=== PATIENT | female | born 1990 | race Caucasian/White ===

== ENCOUNTER 2016-11-26 21:40 | Emergency (ER) | payer MEDICAID ==
[~2016-11-26] VITALS: Ht 154.9 cm; Wt 63.5 kg
[~2016-11-26 21:40] MED LIST: AMOX-358 PO; AMOX500C2 PO; BENZ56AE TP; CEPH500C PO; CIPR500T78 PO; CODE-54 PO; DCS100C PO; FAMO20TA5 PO; FLUT9.9S NS; HYDR-757 PO; IBP600T1 PO; METH4TAB PO; NAPR500T PO; NITR25OR3 PO; ONDA-42 PO; ONDA8TAB13 PO; PEDI1TAB36 PO; PREN1TAB39 PO; PRENATAL VITAMINS; TRAM50TA2 PO
--- NOTE | 2016-11-26 22:32 | ED Back Pain ---
General Chief Complaint: Back Problems Stated Complaint: UPPER BACK PAIN Nursing Triage Note: Pt reports picking up car seat to go to store mid day and began severe pain in upper back. Pt could not go to work r/t pain. Nursing Sepsis Screen: No Definite Risk Source of Information: Patient Exam Limitations: No Limitations History of Present Illness Time Seen by Provider: 22:32 Initial Comments 26-year-old female patient presents to the emergency department for complaints of upper back pain after picking up her infants car seat earlier today. States pain was so severe she could not go to work. Denies radiating pain, numbness, weakness, bowel incontinence, or bladder incontinence. Location: Paraspinous Muscles Timing/Duration: 4-6 Hours Pain/Injury Location: Back Method of Injury: Other (lifting an car seat) Modifying Factors: Worse With Movement, Worse With Other (worse with deep breaths and palpation) Associated Symptoms: muscle spasms, No fever, No weakness, No numbness in legs/ feet, No tingling in legs/feet, No sensory/motor loss, No lower back pain, No loss of bladder control, No loss of bowel control Allergies and Home Medications Allergies Coded Allergies: nitrofurantoin (Unverified Allergy, Unknown, 09/06/14) throat swelling Home Medications Cyclobenzaprine HCl 10 Mg Tablet, 10 MG PO Q8H PRN for SPASMS, #10 Ref 0 Prescribed by: MARIE VAZQUEZ on 11/26/162241 Ibuprofen 800 Mg Tablet, 800 MG PO Q8H PRN for PAIN, #30 Ref 0 Prescribed by: MARIE VAZQUEZ on 11/26/162241 Prednisone 20 Mg Tab, 40 MG PO DAILY, #10 Ref 0 Prescribed by: MARIE VAZQUEZ on 11/26/162241 Constitutional: no symptoms reported Respiratory: No cough, No dyspnea on exertion, No short of breath Cardiovascular: No chest pain, No palpitations, No syncope Gastrointestinal: No abdominal pain, No diarrhea, No nausea, No vomiting Genitourinary: no symptoms reported Musculoskeletal: see HPI, back pain, No joint pain, No neck pain Skin: no symptoms reported Psychiatric/Neurological: Denies Numbness, Denies Paresthesia, Denies Tingling , Denies Weakness All Other Systems Reviewed Negative Unless Noted: Yes (Negative excepted noted.) Past Idnnavl-Ewjdom-Uuxfbz Hx Patient Social History Alcohol Use: Denies Use Recreational Drug Use: No Smoking Status: Never a Smoker 2nd Hand Smoke Exposure: No Recent Foreign Travel: No Contact w/Someone Who Travel: No Recent Infectious Disease Expo: No Recent Hopitalizations: No Immunizations Up To Date Tetanus Booster (TDap): Less than 5yrs PED Vaccines UTD: Yes Seasonal Allergies Seasonal Allergies: No Surgeries HX Surgeries: No Respiratory Hx Respiratory Disorders: No Cardiovascular Hx Cardiac Disorders: No Neurological Hx Neurological Disorders: No Reproductive System : No Hx Reproductive Disorders: No Sexually Transmitted Disease: No HIV/AIDS: No Female Reproductive Disorders: Denies Genitourinary Hx Genitourinary Disorders: No Gastrointestinal Hx Gastrointestinal Disorders: Yes (PREVIOUS GALL BLADDER ISSUES BUT UNSURE WHAT) Musculoskeletal Hx Musculoskeletal Disorders: No Endocrine Hx Endocrine Disorders: No HEENT HX ENT Disorders: No Loss of Vision: Denies Hearing Impairment: Denies Cancer Hx Cancer: No Psychosocial Hx Psychiatric Problems: No Integumentary HX Skin/Integumentary Disorder: No Blood Transfusions Hx Blood Disorders: No Adverse Reaction to a Blood Tr: No Reviewed Nursing Assessment Reviewed/Agree w Nursing PMH: Yes Family Medical History Significant Family History: No Pertinent Family Hx Family Medial History: Patient reports no known family medical history. Physical Exam Vital Signs Capillary Refill : Less Than 3 Seconds General Appearance: No Apparent Distress, WD/WN HEENT: PERRL/EOMI, Pharynx Normal Neck: Full Range of Motion, Normal Inspection, Non Tender, Supple Cardiovascular: Regular Rate, Rhythm, No Edema, No Murmur, Normal Peripheral Pulses Respiratory: Lungs Clear, Normal Breath Sounds, No Accessory Muscle Use, No Respiratory Distress, Other (left anterior/posterior/lateral 6th-8th ribs TTP w/ o deformity, ecchymosis, or swelling.) Peripheral Pulses: 2+ Dorsalis Pedis (R), 2+ Left Dors-Pedis (L), 2+ Radial Pulses (R), 2+ Radial Pulses (L) Gastrointestinal: Normal Bowel Sounds, Non Tender, Soft, No Distended Back: Normal Inspection, No Vertebral Tenderness, No Decreased Range of Motion , Other (left posterior 6th-8th ribs TTP.) Extremity: Normal Capillary Refill, Normal Inspection, Normal Range of Motion, Non Tender Neurologic/Psychiatric: Alert, Oriented x3, No Motor/Sensory Deficits, Normal Mood/Affect Skin: Normal Color, Warm/Dry Progress/Results/Core Measures Results/Orders My Orders Orders - MARIE VAZQUEZ Rx-Cyclobenzaprine Tablet (Rx-Flexeril T (11/26/16 22:39) Tramadol Tablet (Ultram Tablet) (11/26/16 22:45) Vital Signs/I&O Blood Pressure Mean: 86 Departure Communication Progress Notes Patient seen and evaluated. Plan for discharge to home with Rx's for prednisone , flexeril and motrin. Impression Impression: Primary Impression: Costochondritis, acute Disposition: 01 HOME, SELF-CARE Condition: Improved Departure-Patient Inst. Decision time for Depature: 22:40 Referrals: [facility] (PCP/Family) Primary Care Physician Patient Instructions: Costochondritis (DC) Add. Discharge Instructions: All discharge instructions reviewed with patient and/or family. Voiced understanding. Medications as instructed. Tylenol extra strength over-the- counter as directed for pain. No lifting, pushing, pulling 3-5 days, increase activity as tolerated. Ice packs or heating pads as needed for pain. Follow- up with her family practitioner if no improvement in symptoms in 7-10 days. Return to the emergency department for worsened symptoms or any other concerns. Scripts Ibuprofen (Ibuprofen) 800 Mg Tablet 800 MG PO Q8H Y for PAIN, #30 TAB 0 Refills Prov: MARIE VAZQUEZ 11/26/16 Cyclobenzaprine HCl (Cyclobenzaprine HCl) 10 Mg Tablet 10 MG PO Q8H Y for SPASMS, #10 TAB 0 Refills Prov: MARIE VAZQUEZ 11/26/16 Prednisone (Prednisone) 20 Mg Tab 40 MG PO DAILY, #10 TAB 0 Refills Prov: MARIE VAZQUEZ 11/26/16 Work/School Note: Work Release Form Date Seen in the Emergency Department: Nov 26, 2016 Return to Work: Nov 27, 2016 Other Restrictions Listed Below: no heavy lifting, pushing or pulling x3- 5 days MARIE VAZQUEZ Nov 26, 2016 22:32
[2016-11-26] MEDS ORDERED: RX-CYCLOBENZAPRINE 10 MG (FLEXERIL) TAB PPK#3 PO STA (22:39)
[2016-11-26] MEDS ORDERED: PRD20T PO (22:42)
[2016-11-26] MEDS ORDERED: CYCL10TA9 PO (22:42)
[2016-11-26] MEDS ORDERED: IBUP-1780 PO (22:42)
[2016-11-26 22:59] VITALS: BP 119/69
--- OUTSIDE RECORDS SUMMARY | 2016-12-15 05:17 | XMS REPORT | Continuity of Care Document ---
Author Author [facility] Organization [facility] Address Unknown Phone Unavailable Allergies Active Description Code Type Severity Reaction Onset Reported/Identified Relationship to Patient Clinical Status Yes No Known Drug Allergies [id number] Drug Allergy Unknown N/ A 01/17/2011 Yes nitrofurantoin [id number] Drug Allergy Unknown N/A 09/06/2014 Medications Problems Date Dx Coded Attending Type Code Diagnosis Diagnosed By 01/20/2011 Ot 285.9 ANEMIA NOS 01/20/2011 Ot 644.21 EARLY ONSET DELIVERY-DEL 01/20/2011 Ot 648.21 ANEMIA-DELIVERED 01/20/2011 Ot 663.31 CORD ENTANGLE NEC-DELIV 01/20/2011 Ot V07.2 PROPHYLACT IMMUNOTHERAPY 01/20/2011 Ot V27.0 DELIVER-SINGLE LIVEBORN 04/09/2012 Ot 380.10 INFEC OTITIS EXTERNA NOS 04/09/2012 Ot 388.70 OTALGIA NOS 04/09/2012 Ot 528.2 ORAL APHTHAE 05/01/2014 MARY ALICE JEFFERSON DO Ot 599.0 URIN TRACT INFECTION NOS 05/01/2014 MARY ALICE JEFFERSON DO Ot 646.63 INFECTION-ANTEPARTUM 05/01/2014 MARY ALICE JEFFERSON DO Ot 789.00 ABDOMINAL PAIN, UNSPECIFIED SITE 07/15/2014 JOSUÉ CAMPOS DO Ot 644.03 THRT DOTTIE LABOR-ANTEPART 09/07/2014 JOSUÉ CAMPOS DO Ot 599.0 URIN TRACT INFECTION NOS 09/07/2014 JOSUÉ CAMPOS DO Ot 644.03 THRT DOTTIE LABOR-ANTEPART 09/07/2014 JOSUÉ CAMPOS DO Ot 646.63 INFECTION-ANTEPARTUM 09/07/2014 JOSUÉ CAMPOS DO Ot 644.03 THRT DOTTIE LABOR-ANTEPART 09/24/2014 AIDAN MCLAIN MD Ot 708.9 URTICARIA NOS 09/24/2014 AIDAN MCLAIN MD Ot 782.1 NONSPECIF SKIN ERUPT NEC 09/30/2014 JOSUÉ CAMPOS DO Ot 644.03 09/30/2014 JOSUÉ CAMPOS DO Ot 644.03 THRT DOTTIE LABOR-ANTEPART 10/12/2014 JOSUÉ CAMPOS DO Ot 644.13 THREAT LABOR NEC-ANTEPAR 10/18/2014 JOSUÉ CAMPOS DO Ot 664.01 DEL W 1 DEG LACERAT-DEL 10/18/2014 JOSUÉ CAMPOS DO Ot V27.0 DELIVER-SINGLE LIVEBORN 01/20/2015 GRICEL DOMINGUEZ APRN Ot 525.9 DENTAL DISORDER NOS 03/28/2015 MARIE MCCALL Ot 276.50 VOLUME DEPLETION, UNSPECIFIED 03/28/2015 MARIE MCCALL Ot 599.0 URIN TRACT INFECTION NOS 03/28/2015 MARIE MCCALL Ot 620.2 OVARIAN CYST NEC/NOS 03/28/2015 MARIE MCCALL Ot 789.09 ABDOMINAL PAIN, OTHER SPECIFIED SITE 08/31/2015 BLAINE HUNTER DO Ot R11.2 04/03/2016 BLAINE HUNTER DO Ot R11.2 NAUSEA WITH VOMITING, UNSPECIFIED 04/03/2016 GRICEL DOMINGUEZ APRN Ot J01.00 ACUTE MAXILLARY SINUSITIS, UNSPECIFIED 04/03/2016 GRICEL DOMINGUEZ APRN Ot R51 HEADACHE 04/04/2016 GRICEL DOMINGUEZ APRN Ot J01.00 ACUTE MAXILLARY SINUSITIS, UNSPECIFIED 04/04/2016 GRICEL DOMINGUEZ APRN Ot R51 HEADACHE 04/04/2016 GRICEL DOMINGUEZ APRN Ot J01.00 ACUTE MAXILLARY SINUSITIS, UNSPECIFIED 04/04/2016 GRICEL DOMINGUEZ APRN Ot R51 HEADACHE 11/27/2016 BLAINE HUNTER DO Ot R11.2 NAUSEA WITH VOMITING, UNSPECIFIED 11/27/2016 MARIE MCCALL Ot M54.9 DORSALGIA, UNSPECIFIED 11/27/2016 MARIE MCCALL Ot M94.0 CHONDROCOSTAL JUNCTION SYNDROME [TIETZE ] Procedures Code Description Performed By Performed On 73.6 01/18/2011 75.69 REPAIR OB LACERATION NEC 10/17/2014 Results Encounters ACCT No. Visit Date/Time Discharge Status Pt. Type Provider Facility Loc./Unit Complaint [id number] 11/26/2016 21:41:00 2016 22:59:00 DIS Outpatient MARIE MCCALL [facility] ER UPPER BACK PAIN [id number] 04/03/2016 13:58:00 2015 14:10:00 DIS Emergency GRICEL DOMINGUEZ APRN [facility] ER EARACHE HEADACHE CONGESTION [id number] 03/28/2015 12:24:00 2014 16:34:00 DIS Emergency MARIE MCCALL [facility] ER ABD/LOW BACK PAIN SPOTTING FEVER [id number] 01/20/2015 11:17:00 2014 11:41:00 DIS Emergency GRICEL DOMINGUEZ APRN [facility] ER TOOTHACHE [id number] 10/12/2014 13:09:00 2014 15:40:00 DIS Outpatient JOSUÉ CAMPOS DO [facility] WSo CONTRACTIONS [id number] 09/29/2014 11:30:00 2014 10:59:00 DIS Inpatient JOSUÉ CAMPOS DO [facility] LDRP LABOR [id number] 09/24/2014 23:00:00 2014 23:35:00 DIS Emergency AIDAN MCLAIN MD [facility] ER RASH [id number] 09/07/2014 15:04:00 2014 15:22:00 DIS Outpatient JOSUÉ CAMPOS DO [facility] WSo THRT OF PRE TERM LABOR [id number] 09/06/2014 15:45:00 2014 09:30:00 DIS Inpatient JOSUÉ CAMPOS DO [facility] LDRP PRE-TERM CONTRACTIONS [id number] 07/15/2014 18:29:00 2013 19:29:00 DIS Outpatient JOSUÉ CAMPOS DO [facility] WSo ABD PAIN, DEC MOVEMENT [id number] 05/01/2014 12:53:00 2013 14:50:00 DIS Emergency MARY ALICE JEFFERSON DO [facility] ER ABD PAIN @ 13 WEEKS [id number] 08/16/2015 08:45:00 ACT Outpatient BLAINE HUNTER DO [facility] RAD N/V [id number] 10/17/2014 00:00:00 ACT Inpatient JOSUÉ CAMPOS DO [facility] LDRP CONTRACTIONS [id number] 04/09/2012 21:24:00 Document Registration [id number] 01/17/2011 16:07:00 Document Registration
== END 2016-11-26 22:59 | disposition home or self-care (01) ==
LOC: EDUNIT# 21:40 → ER 21:41
DX: M94.0 Chondrocostal junction syndrome [Tietze] (principal)
CPT/HCPCS: 99283

== ENCOUNTER 2017-01-21 15:52 | Emergency (ER) | payer MEDICAID ==
[~2017-01-21] VITALS: Ht 154.9 cm; Wt 63.0 kg
[~2017-01-21 15:52] MED LIST changes: +CYCL10TA9 PO; +IBUP-1780 PO; +PRD20T PO
--- NOTE | 2017-01-21 16:17 | ED Upper Extremity ---
General Stated Complaint: LIGHT HEADED/DIZZY/SHAKEY Source: patient Exam Limitations: no limitations History of Present Illness Time seen by provider: 16:16 Initial Comments To ER with reports of lightheadedness, dizziness, shakiness and bilateral arm numbness since the of this month. No shortness of breath or palpitations. No syncope or loss of consciousness. She's never had this before. She is 3 weeks late on her menstrual cycle. Onset: other Severity: moderate Pain/Injury Location: bilateral arm Method of Injury: unknown Modifying Factors: Worse With Movement Allergies and Home Medications Allergies Coded Allergies: nitrofurantoin (Unverified Allergy, Unknown, 09/06/14) throat swelling Constitutional: see HPI EENTM: see HPI Respiratory: no symptoms reported Cardiovascular: no symptoms reported Genitourinary: no symptoms reported Musculoskeletal: see HPI Skin: no symptoms reported Psychiatric/Neurological: No Symptoms Reported Past Irynfwv-Sfsetu-Eoatjn Hx Patient Social History 2nd Hand Smoke Exposure: No Recent Foreign Travel: No Contact w/Someone Who Travel: No Recent Hopitalizations: No Immunizations Up To Date Tetanus Booster (TDap): Less than 5yrs PED Vaccines UTD: Yes Seasonal Allergies Seasonal Allergies: No Surgeries HX Surgeries: No Respiratory Hx Respiratory Disorders: No Cardiovascular Hx Cardiac Disorders: No Neurological Hx Neurological Disorders: No Reproductive System Hx Reproductive Disorders: No Sexually Transmitted Disease: No HIV/AIDS: No Female Reproductive Disorders: Denies Genitourinary Hx Genitourinary Disorders: No Gastrointestinal Hx Gastrointestinal Disorders: Yes (PREVIOUS GALL BLADDER ISSUES BUT UNSURE WHAT) Musculoskeletal Hx Musculoskeletal Disorders: No Endocrine Hx Endocrine Disorders: No HEENT HX ENT Disorders: No Loss of Vision: Denies Hearing Impairment: Denies Cancer Hx Cancer: No Psychosocial Hx Psychiatric Problems: No Integumentary HX Skin/Integumentary Disorder: No Blood Transfusions Hx Blood Disorders: No Adverse Reaction to a Blood Tr: No Family Medical History Significant Family History: No Pertinent Family Hx Family Medial History: Patient reports no known family medical history. Physical Exam Vital Signs Vital Sign - Last 12Hours 01/21/17 16:10 Temp 97.1 Pulse 66 Resp 18 B/P (MAP) 120/59 Pulse Ox 100 Capillary Refill : General Appearance: WD/WN, no apparent distress HEENT: PERRL/EOMI, normal ENT inspection Neck: non-tender, full range of motion Respiratory: no respiratory distress, no accessory muscle use Gastrointestinal: normal bowel sounds, non tender, soft Shoulder: normal inspection, non-tender Elbow/Forearm: normal inspection, non-tender, Right Wrist: Yes normal inspection, Yes non-tender Hand: normal inspection, non-tender, Bilateral Neurologic/Psychiatric: alert, normal mood/affect, oriented x 3 Skin: normal color, warm/dry Progress/Results/Core Measures Results/Orders Lab Results Laboratory Tests Test 01/21/17 16:14 01/21/17 16:15 01/21/17 16:36 Range/Units Urine Color YELLOW Urine Clarity CLEAR Urine pH 7 5-9 Urine Specific [place] 1.010 L 1.016-1.022 Urine Protein NEGATIVE NEGATIVE Urine Glucose (UA) NEGATIVE NEGATIVE Urine Ketones NEGATIVE NEGATIVE Urine Nitrite NEGATIVE NEGATIVE Urine Bilirubin NEGATIVE NEGATIVE Urine Urobilinogen NORMAL NORMAL MG/DL Urine Leukocyte Esterase 1+ H NEGATIVE Urine RBC (Auto) NEGATIVE NEGATIVE Urine RBC NONE /HPF Urine WBC 0-2 /HPF Urine Squamous Epithelial Cells 0-2 /HPF Urine Crystals NONE /LPF Urine Bacteria TRACE /HPF Urine Casts NONE /LPF Urine Mucus NEGATIVE /LPF Urine Culture Indicated NO Urine Opiates Screen NEGATIVE NEGATIVE Urine Oxycodone Screen NEGATIVE NEGATIVE Urine Methadone Screen NEGATIVE NEGATIVE Urine Propoxyphene Screen NEGATIVE NEGATIVE Urine Barbiturates Screen NEGATIVE NEGATIVE Ur Tricyclic Antidepressants Screen NEGATIVE NEGATIVE Urine Phencyclidine Screen NEGATIVE NEGATIVE Urine Amphetamines Screen NEGATIVE NEGATIVE Urine Methamphetamines Screen NEGATIVE NEGATIVE Urine Benzodiazepines Screen NEGATIVE NEGATIVE Urine Cocaine Screen NEGATIVE NEGATIVE Urine Cannabinoids Screen NEGATIVE NEGATIVE White Blood Count 8.9 4.3-11.0 10^3/uL Red Blood Count 4.60 4.35-5.85 10^6/uL Hemoglobin 13.0 11.5-16.0 G/DL Hematocrit 40 35-52 % Mean Corpuscular Volume 87 80-99 FL Mean Corpuscular Hemoglobin 28 25-34 PG Mean Corpuscular Hemoglobin Concent 33 32-36 G/DL Red Cell Distribution Width 13.9 10.0-14.5 % Platelet Count 146 130-400 10^3/uL Mean Platelet Volume 13.0 H 7.4-10.4 FL Neutrophils (%) (Auto) 67 42-75 % Lymphocytes (%) (Auto) 24 12-44 % Monocytes (%) (Auto) 8 0-12 % Eosinophils (%) (Auto) 1 0-10 % Basophils (%) (Auto) 0 0-10 % Neutrophils # (Auto) 6.0 1.8-7.8 X 10^3 Lymphocytes # (Auto) 2.1 1.0-4.0 X 10^3 Monocytes # (Auto) 0.7 0.0-1.0 X 10^3 Eosinophils # (Auto) 0.1 0.0-0.3 10^3/uL Basophils # (Auto) 0.0 0.0-0.1 10^3/uL Sodium Level 139 135-145 MMOL/L Potassium Level 4.5 3.6-5.0 MMOL/L Chloride Level 106 98-107 MMOL/L Carbon Dioxide Level 26 21-32 MMOL/L Anion Gap 7 5-14 MMOL/L Blood Urea Nitrogen 10 7-18 MG/DL Creatinine 0.75 0.60-1.30 MG/DL Estimat Glomerular Filtration Rate > 60 BUN/Creatinine Ratio 13 Glucose Level 90 70-105 MG/DL Calcium Level 9.3 8.5-10.1 MG/DL Total Bilirubin 0.5 0.1-1.0 MG/DL Aspartate Amino Transf (AST/SGOT) 16 5-34 U/L Alanine Aminotransferase (ALT/SGPT) 11 0-55 U/L Alkaline Phosphatase 51 40-136 U/L Total Protein 7.2 6.4-8.2 G/DL Albumin 4.1 3.2-4.5 G/DL Thyroid Stimulating Hormone (TSH) 0.92 0.35-4.94 UIU/ML My Orders Orders - GRICEL DOMINGUEZ APRN Cbc With Automated Diff (01/21/17 16:15) Comprehensive Metabolic Panel (01/21/17 16:15) Thyroid Stimulating Hormone (01/21/17 16:15) Ua Culture If Indicated (01/21/17 16:15) Urine Bedside (01/21/17 16:15) Drug Screen Stat (Urine) (01/21/17 16:15) Vital Signs/I&O Vital Sign - Last 12Hours 01/21/17 16:10 Temp 97.1 Pulse 66 Resp 18 B/P (MAP) 120/59 Pulse Ox 100 Departure Impression Impression: Primary Impression: Paresthesia and pain of both upper extremities Additional Impression: Light-headed feeling Disposition: 01 HOME, SELF-CARE Condition: Stable Departure-Patient Inst. Decision time for Depature: 17:26 [place] [facility] [place] Primary Care Physician Patient Instructions: NO INSTRUCTIONS GIVEN Add. Discharge Instructions: 1. Return to ER for any concerns 2. Follow-up with your doctor next week 3. GRICEL DOMINGUEZ APRN January 21, 2017 16:17
[2017-01-21 16:25] LABS: BILIRUBIN,URINE NEGATIVE (NEGATIVE); KETONES,URINE NEGATIVE (NEGATIVE); LEUKOCYTE ESTERASE ,URINE 1+ (NEGATIVE); NITRITE,URINE NEGATIVE (NEGATIVE); PH,URINE 7 (5-9); PROTEIN,URINE NEGATIVE (NEGATIVE); UROBILINOGEN,URINE NORMAL (NORMAL)
[2017-01-21 16:44] LABS: BASOPHILS % (AUTO) 0 % (0-10); EOSINOPHILS # (AUTO) 0.1 10^3/uL (0.0-0.3); EOSINOPHILS % (AUTO) 1 % (0-10); LYMPHOCYTES # (AUTO) 2.1 X 10^3 (1.0-4.0); LYMPHOCYTES % (AUTO) 24 % (12-44); MEAN CORPUSCULAR HEMOGLOBIN 28 PG (25-34); MEAN CORPUSCULAR HGB CONC 33 G/DL (32-36); MEAN CORPUSCULAR VOLUME 87 FL (80-99); MONOCYTES # (AUTO) 0.7 X 10^3 (0.0-1.0); MONOCYTES % (AUTO) 8 % (0-12); NEUTROPHILS % (AUTO) 67 % (42-75); PLATELET COUNT 146 10^3/uL (130-400); RED CELL DISTRIBUTION WIDTH 13.9 % (10.0-14.5); WHITE BLOOD COUNT 8.9 10^3/uL (4.3-11.0)
[2017-01-21 16:46] LABS: SQUAMOUS EPITHELIAL CELL,UR 0-2 /HPF; WBC,URINE 0-2 /HPF
[2017-01-21 17:03] LABS: ALANINE AMINOTRANSFERASE 11 U/L (0-55); ALBUMIN 4.1 G/DL (3.2-4.5); ANION GAP 7 MMOL/L (5-14); ASPARTATE AMINO TRANSFERASE 16 U/L (5-34); BILIRUBIN,TOTAL 0.5 MG/DL (0.1-1.0); BLOOD UREA NITROGEN 10 MG/DL (7-18); BUN/CREATININE RATIO 13; CALCIUM 9.3 MG/DL (8.5-10.1); CARBON DIOXIDE 26 MMOL/L (21-32); CHLORIDE 106 MMOL/L (98-107); CREATININE SERUM 0.75 MG/DL (0.60-1.30); GFR ESTIMATED > 60; GLUCOSE 90 MG/DL (70-105); POTASSIUM 4.5 MMOL/L (3.6-5.0); SODIUM 139 MMOL/L (135-145); TOTAL PROTEIN 7.2 G/DL (6.4-8.2)
[2017-01-21 17:22] LABS: THYROID STIMULATING HORMONE 0.92 UIU/ML (0.35-4.94)
[2017-01-21 17:52] VITALS: BP 120/59
== END 2017-01-21 17:52 | disposition home or self-care (01) ==
LOC: EDUNIT# 15:52 → ER 15:54
DX: R42 Dizziness and giddiness (principal); R20.2 Paresthesia of skin
CPT/HCPCS: 36415; 80053; 80306; 81000; 84443; 84703; 85025; 99283

== ENCOUNTER 2017-03-30 20:01 | Emergency (ER) | payer OTHER ==
[~2017-03-30] VITALS: Ht 154.9 cm; Wt 63.1 kg
[2017-03-30 20:41] LABS: BILIRUBIN,URINE NEGATIVE (NEGATIVE); KETONES,URINE NEGATIVE (NEGATIVE); LEUKOCYTE ESTERASE ,URINE 1+ (NEGATIVE); NITRITE,URINE NEGATIVE (NEGATIVE); PH,URINE 6 (5-9); PROTEIN,URINE NEGATIVE (NEGATIVE); UROBILINOGEN,URINE NORMAL (NORMAL)
[2017-03-30 21:03] LABS: SQUAMOUS EPITHELIAL CELL,UR >50 /HPF
--- NOTE | 2017-03-30 21:07 | ED GU-Female ---
General Chief Complaint: Abdominal/GI Problems Stated Complaint: NAUSEA POSS PG Nursing Triage Note: PT AMBUALTED TO ROOM. PT STATES SHE HAS BEEN FEELING NAUSEOUS FOR ABOUT A WEEK WHEN SHE EATS. PT STATES SHE HAS TAKEN NUMEROUS TEST AT HOME AND THEY HAVE BEEN POSITIVE. Nursing Sepsis Screen: No Definite Risk Source: patient Exam Limitations: no limitations History of Present Illness Time seen by provider: 21:07 Initial Comments 26-year-old female patient presents to the emergency department complaints of feeling nauseous for approximately one week. Patient states she's taken several tests at home which have been positive. Denies abdominal pain , vaginal discharge, vaginal bleeding. Timing/Duration: week, intermittent Severity/Quality: mild Activities at Onset: eating Sexual [place] History: less than 2 months ago, single partner Modifying Factors: Worsens With Eating Allergies and Home Medications Allergies Coded Allergies: nitrofurantoin (Unverified Allergy, Unknown, 09/06/14) throat swelling Home Medications Doxylamine/Pyridoxine HCl 1 Each Tablet.dr, 1 EACH PO DAILY PRN for NAUSEA/ VOMITING-1ST LINE, #20 Ref 0 1 po qhs. if no improvement in 2-3 days you may increase to 1 po BID. Prescribed by: MARIE VAZQUEZ on 03/30/172115 Constitutional: No chills, No dizziness, No fever, No malaise EENTM: no symptoms reported Respiratory: No cough, No short of breath Cardiovascular: No chest pain, No palpitations, No syncope Gastrointestinal: No abdominal pain, No constipation, No diarrhea, loss of appetite, nausea, No vomiting Genitourinary: denies burning, denies discharge, denies dysuria, denies frequency, denies flank pain, denies hematuria, denies pain : Yes Musculoskeletal: No back pain Skin: no symptoms reported Psychiatric/Neurological: No Symptoms Reported All Other Systemes Reviewed Negative Unless Noted: Yes (Negative excepted noted.) Past Nyosqcc-Emzrhe-Kfqptc Hx Patient Social History Alcohol Use: Denies Use Recreational Drug Use: No Smoking Status: Never a Smoker 2nd Hand Smoke Exposure: No Recent Foreign Travel: No Contact w/Someone Who Travel: No Recent Infectious Disease Expo: No Recent Hopitalizations: No Immunizations Up To Date Tetanus Booster (TDap): Less than 5yrs PED Vaccines UTD: Yes Seasonal Allergies Seasonal Allergies: No Surgeries HX Surgeries: No Respiratory Hx Respiratory Disorders: No Cardiovascular Hx Cardiac Disorders: No Neurological Hx Neurological Disorders: No Reproductive System : Yes (JUST TOOK TEST TODAY) Hx : 3 Hx Para: 2 Hx Total # of Abortions (Spona: 0 Hx Reproductive Disorders: No Sexually Transmitted Disease: No HIV/AIDS: No Female Reproductive Disorders: Denies Genitourinary Hx Genitourinary Disorders: No Gastrointestinal Hx Gastrointestinal Disorders: Yes (PREVIOUS GALL BLADDER ISSUES BUT UNSURE WHAT) Musculoskeletal Hx Musculoskeletal Disorders: No Endocrine Hx Endocrine Disorders: No HEENT HX ENT Disorders: No Loss of Vision: Denies Hearing Impairment: Denies Cancer Hx Cancer: No Psychosocial Hx Psychiatric Problems: No Integumentary HX Skin/Integumentary Disorder: No Blood Transfusions Hx Blood Disorders: No Adverse Reaction to a Blood Tr: No Reviewed Nursing Assessment Reviewed/Agree w Nursing PMH: Yes Family Medical History Significant Family History: No Pertinent Family Hx Family Medial History: Patient reports no known family medical history. Physical Exam Vital Signs Vital Sign - Last 12Hours 03/30/17 20:14 Temp 97.5 Pulse 75 Resp 16 B/P (MAP) 112/63 Pulse Ox 100 O2 Delivery Room Air Capillary Refill : Less Than 3 Seconds General Appearance: WD/WN, no apparent distress HEENT: PERRL/EOMI, pharynx normal Neck: supple, normal inspection Cardiovascular: normal peripheral pulses, regular rate, rhythm, no edema, no murmur Respiratory: lungs clear, normal breath sounds, no respiratory distress Gastrointestinal: normal bowel sounds, non tender, soft, no organomegaly, No distended Back: normal inspection, no CVA tenderness Extremities: no pedal edema, normal capillary refill Neurologic/Psychiatric: alert, normal mood/affect, oriented x 3 Skin: normal color, warm/dry Progress/Results/Core Measures Results/Orders Lab Results Laboratory Tests Test 03/30/17 20:12 Range/Units Urine Color YELLOW Urine Clarity CLEAR Urine pH 6 5-9 Urine Specific [place] 1.015 L 1.016-1.022 Urine Protein NEGATIVE NEGATIVE Urine Glucose (UA) NEGATIVE NEGATIVE Urine Ketones NEGATIVE NEGATIVE Urine Nitrite NEGATIVE NEGATIVE Urine Bilirubin NEGATIVE NEGATIVE Urine Urobilinogen NORMAL NORMAL MG/DL Urine Leukocyte Esterase 1+ H NEGATIVE Urine RBC (Auto) NEGATIVE NEGATIVE Urine RBC NONE /HPF Urine WBC 2-5 /HPF Urine Squamous Epithelial Cells >50 H /HPF Urine Renal Epithelial Cells NONE /HPF Urine Crystals NONE /LPF Urine Bacteria TRACE /HPF Urine Casts NONE /LPF Urine Mucus NEGATIVE /LPF Urine Culture Indicated NO My Orders Orders - MARIE VAZQUEZ Urine Bedside (03/30/17 20:28) Ua Culture If Indicated (03/30/17 20:28) Ondansetron Oral Dissolve Tab (Zofran (03/30/17 21:13) Vital Signs/I&O Blood Pressure Mean: 79 Point of Care Testing Urine -Bedside: Positive Departure Communication Progress Notes Patient seen and evaluated. All risks, benefits, and possible complications associated with using Zofran during were discussed with the patient. Patient voiced understanding and wished to proceed with Zofran for nausea. Patient reported improvement in symptoms with medication. Patient discharged to home with a prescription for diclegis. Impression Impression: Primary Impression: related nausea, antepartum Disposition: HOME, SELF-CARE Condition: Improved Departure-Patient Inst. Decision time for Depature: 21:15 Referrals: [facility] (PCP/Family) Primary Care Physician Patient Instructions: Nausea and Vomiting of (DC) Add. Discharge Instructions: All discharge instructions reviewed with patient and/or family. Voiced understanding. Medications as directed. Drink plenty of fluids. Follow-up with your equipment maintenance engineer as an outpatient to establish care. Call for appointment time. Return to the emergency department for vaginal bleeding with greater than 2 pads per hour for greater than 2 hours, vaginal discharge, fever , inability to urinate, or any other concerns. Scripts Doxylamine/Pyridoxine HCl (Marito Carroll 10-10 mg Tablet) 1 Each Tablet.dr 1 EACH PO DAILY Y for NAUSEA/VOMITING-1ST LINE, #20 TAB 0 Refills 1 po qhs. if no improvement in 2-3 days you may increase to 1 po BID. Prov: MARIE VAZQUEZ 03/30/17 Work/School Note: Work Release Form Date Seen in the Emergency Department: Mar 30, 2017 Return to Work: Mar 31, 2017 MARIE VAZQUEZ Mar 30, 2017 21:07
[2017-03-30] MEDS ORDERED: ONDANSETRON 4 MG (ZOFRAN) ORAL DISSOLVE TAB SL STA (21:13)
[2017-03-30] MEDS ORDERED: DOXY1TAB3 PO (21:16)
[2017-03-30 21:33] VITALS: BP 112/63
== END 2017-03-30 21:33 | disposition home or self-care (01) ==
LOC: EDUNIT# 20:01 → ER 20:04
DX: O99.89 Other specified diseases and conditions complicating pregnancy, childbirth and the puerperium (principal); R11.0 Nausea; Z3A.00 Weeks of gestation of pregnancy not specified; Z87.19 Personal history of other diseases of the digestive system
CPT/HCPCS: 81000; 84703; 99283

== ENCOUNTER 2017-06-11 21:33 | Emergency (ER) | payer OTHER ==
[~2017-06-11] VITALS: Ht 154.9 cm; Wt 63.1 kg
[~2017-06-11 21:33] MED LIST changes: +DOXY1TAB3 PO
[2017-06-11 22:10] LABS: BASOPHILS % (AUTO) 0 % (0-10); EOSINOPHILS # (AUTO) 0.1 10^3/uL (0.0-0.3); EOSINOPHILS % (AUTO) 1 % (0-10); LYMPHOCYTES # (AUTO) 1.8 X 10^3 (1.0-4.0); LYMPHOCYTES % (AUTO) 20 % (12-44); MEAN CORPUSCULAR HEMOGLOBIN 29 PG (25-34); MEAN CORPUSCULAR HGB CONC 34 G/DL (32-36); MEAN CORPUSCULAR VOLUME 85 FL (80-99); MEAN PLATELET VOLUME 12.2 FL (7.4-10.4); MONOCYTES # (AUTO) 0.6 X 10^3 (0.0-1.0); MONOCYTES % (AUTO) 7 % (0-12); NEUTROPHILS # (AUTO) 6.6 X 10^3 (1.8-7.8); NEUTROPHILS % (AUTO) 73 % (42-75); PLATELET COUNT 144 10^3/uL (130-400); RED BLOOD COUNT 4.25 10^6/uL (4.35-5.85); RED CELL DISTRIBUTION WIDTH 13.5 % (10.0-14.5)
[2017-06-11 22:11] LABS: BILIRUBIN,URINE NEGATIVE (NEGATIVE); KETONES,URINE NEGATIVE (NEGATIVE); LEUKOCYTE ESTERASE ,URINE 1+ (NEGATIVE); NITRITE,URINE NEGATIVE (NEGATIVE); PH,URINE 6 (5-9); PROTEIN,URINE NEGATIVE (NEGATIVE); UROBILINOGEN,URINE NORMAL (NORMAL)
--- NOTE | 2017-06-11 22:11 | ED General ---
General Chief Complaint: Dizziness/Syncope Stated Complaint: [id number] PREG,HEADACHE/DIZZINESS Source of Information: Patient Exam Limitations: No Limitations History of Present Illness Time Seen by Provider: 22:09 Initial Comments To ER with reports of lightheadedness, posterior/occipital headache, nausea, dizziness. The symptoms of been intermittent for about a week but more persistent for the past 2 days. She denies any head injury. She reports intermittent upper abdominal pain and states that she's had trouble with her gallbladder during her previous 2 pregnancies. She is . She reports urinary frequency. No vaginal bleeding or abdominal cramping in the lower part of the abdomen. Timing/Duration: 1 Week, Intermittent Severity: Moderate Associated Systoms: Headaches Allergies and Home Medications Allergies Coded Allergies: nitrofurantoin (Unverified Allergy, Unknown, 09/06/14) throat swelling Home Medications Doxylamine/Pyridoxine HCl 1 Each Tablet.dr, 1 EACH PO DAILY PRN for NAUSEA/ VOMITING-1ST LINE, #20 Ref 0 1 po qhs. if no improvement in 2-3 days you may increase to 1 po BID. Prescribed by: MARIE VAZQUEZ on 03/30/172115 Constitutional: see HPI EENTM: see HPI Respiratory: no symptoms reported Cardiovascular: no symptoms reported Genitourinary: no symptoms reported Musculoskeletal: no symptoms reported Skin: no symptoms reported Psychiatric/Neurological: See HPI, Headache Hematologic/Lymphatic: No Symptoms Reported Past Pongwep-Gfcnba-Dzgcck Hx Patient Social History 2nd Hand Smoke Exposure: No Recent Foreign Travel: No Contact w/Someone Who Travel: No Recent Hopitalizations: No Immunizations Up To Date Tetanus Booster (TDap): Less than 5yrs PED Vaccines UTD: Yes Seasonal Allergies Seasonal Allergies: No Surgeries History of Surgeries: No Respiratory History of Respiratory Disorde: No Cardiovascular History of Cardiac Disorders: No Neurological History of Neurological Disord: No Reproductive System Hx Reproductive Disorders: No Sexually Transmitted Disease: No HIV/AIDS: No Female Reproductive Disorders: Denies Genitourinary History of Genitourinary Disor: No Gastrointestinal History of Gastrointestinal Di: Yes (PREVIOUS GALL BLADDER ISSUES BUT UNSURE WHAT) Musculoskeletal History of Musculoskeletal Dis: No Endocrine History of Endocrine Disorders: No HEENT History of HEENT Disorders: No Loss of Vision: Denies Hearing Impairment: Denies Cancer History of Cancer: No Psychosocial History of Psychiatric Problem: No Integumentary History of Skin or Integumenta: No Blood Transfusions History of Blood Disorders: No Adverse Reaction to a Blood Tr: No Family Medical History Significant Family History: No Pertinent Family Hx Family Medial History: Patient reports no known family medical history. Physical Exam Vital Signs Vital Sign - Last 12Hours 06/11/17 21:50 Temp 98.1 Pulse 76 Resp 20 B/P (MAP) 108/57 Pulse Ox 100 O2 Delivery Room Air Capillary Refill : General Appearance: No Apparent Distress, WD/WN Eyes: Bilateral Eye Normal Inspection, Bilateral Eye PERRL, Bilateral Eye EOMI HEENT: PERRL/EOMI, TMs Normal, Normal ENT Inspection Neck: Full Range of Motion, Normal Inspection Respiratory: Normal Breath Sounds, No Accessory Muscle Use, No Respiratory Distress Cardiovascular: Regular Rate, Rhythm, Normal Peripheral Pulses Gastrointestinal: Non Tender, Soft Extremity: Normal Capillary Refill (primary), Normal Inspection Neurologic/Psychiatric: Alert, Oriented x3, No Motor/Sensory Deficits Skin: Normal Color, Warm/Dry Progress/Results/Core Measures Results/Orders Lab Results Laboratory Tests Test 06/11/17 21:58 Range/Units White Blood Count 9.0 4.3-11.0 10^3/uL Red Blood Count 4.25 L 4.35-5.85 10^6/uL Hemoglobin 12.4 11.5-16.0 G/DL Hematocrit 36 35-52 % Mean Corpuscular Volume 85 80-99 FL Mean Corpuscular Hemoglobin 29 25-34 PG Mean Corpuscular Hemoglobin Concent 34 32-36 G/DL Red Cell Distribution Width 13.5 10.0-14.5 % Platelet Count 144 130-400 10^3/uL Mean Platelet Volume 12.2 H 7.4-10.4 FL Neutrophils (%) (Auto) 73 42-75 % Lymphocytes (%) (Auto) 20 12-44 % Monocytes (%) (Auto) 7 0-12 % Eosinophils (%) (Auto) 1 0-10 % Basophils (%) (Auto) 0 0-10 % Neutrophils # (Auto) 6.6 1.8-7.8 X 10^3 Lymphocytes # (Auto) 1.8 1.0-4.0 X 10^3 Monocytes # (Auto) 0.6 0.0-1.0 X 10^3 Eosinophils # (Auto) 0.1 0.0-0.3 10^3/uL Basophils # (Auto) 0.0 0.0-0.1 10^3/uL Urine Color YELLOW Urine Clarity CLEAR Urine pH 6 5-9 Urine Specific [place] 1.020 1.016-1.022 Urine Protein NEGATIVE NEGATIVE Urine Glucose (UA) NEGATIVE NEGATIVE Urine Ketones NEGATIVE NEGATIVE Urine Nitrite NEGATIVE NEGATIVE Urine Bilirubin NEGATIVE NEGATIVE Urine Urobilinogen NORMAL NORMAL MG/DL Urine Leukocyte Esterase 1+ H NEGATIVE Urine RBC (Auto) NEGATIVE NEGATIVE Urine RBC NONE /HPF Urine WBC 2-5 /HPF Urine Squamous Epithelial Cells 5-10 /HPF Urine Crystals NONE /LPF Urine Bacteria FEW H /HPF Urine Casts NONE /LPF Urine Mucus TRACE /LPF Urine Culture Indicated NO Sodium Level 137 135-145 MMOL/L Potassium Level 3.2 L 3.6-5.0 MMOL/L Chloride Level 105 98-107 MMOL/L Carbon Dioxide Level 24 21-32 MMOL/L Anion Gap 8 5-14 MMOL/L Blood Urea Nitrogen 7 7-18 MG/DL Creatinine 0.62 0.60-1.30 MG/DL Estimat Glomerular Filtration Rate > 60 BUN/Creatinine Ratio 11 Glucose Level 81 70-105 MG/DL Calcium Level 8.8 8.5-10.1 MG/DL Total Bilirubin 0.4 0.1-1.0 MG/DL Aspartate Amino Transf (AST/SGOT) 12 5-34 U/L Alanine Aminotransferase (ALT/SGPT) 9 0-55 U/L Alkaline Phosphatase 49 40-136 U/L Total Protein 6.8 6.4-8.2 GM/DL Albumin 3.5 3.2-4.5 GM/DL Urine Opiates Screen NEGATIVE NEGATIVE Urine Oxycodone Screen NEGATIVE NEGATIVE Urine Methadone Screen NEGATIVE NEGATIVE Urine Propoxyphene Screen NEGATIVE NEGATIVE Urine Barbiturates Screen NEGATIVE NEGATIVE Ur Tricyclic Antidepressants Screen NEGATIVE NEGATIVE Urine Phencyclidine Screen NEGATIVE NEGATIVE Urine Amphetamines Screen NEGATIVE NEGATIVE Urine Methamphetamines Screen NEGATIVE NEGATIVE Urine Benzodiazepines Screen NEGATIVE NEGATIVE Urine Cocaine Screen NEGATIVE NEGATIVE Urine Cannabinoids Screen POSITIVE H NEGATIVE My Orders Orders - GRICEL DOMINGUEZ APRN Cbc With Automated Diff (06/11/17 21:42) Comprehensive Metabolic Panel (06/11/17 21:42) Ua Culture If Indicated (06/11/17 21:42) Saline Lock/Iv-Start (06/11/17 21:42) Monitor-Rhythm Ecg Trace Only (06/11/17 21:42) Drug Screen Stat (Urine) (06/11/17 21:42) Urine Bedside (06/11/17 21:42) Diphenhydramine Injection (Benadryl Inje (06/11/17 22:15) Acetaminophen Tablet (Tylenol Tablet) (06/11/17 22:15) Ns Iv 1000 Ml (Sodium Chloride 0.9%) (06/11/17 22:15) Medications Given in ED Current Medications Medications Dose Ordered Sig/Jose Miguel Route Start Time Stop Time Status Last Admin Dose Admin Acetaminophen 1,000 mg ONCE ONCE PO 06/11/17 22:15 06/11/17 22:16 DC 06/11/17 22:25 1,000 MG Diphenhydramine HCl 25 mg ONCE ONCE IVP 06/11/17 22:15 06/11/17 22:16 DC 06/11/17 22:21 25 MG Vital Signs/I&O Vital Sign - Last 12Hours 06/11/17 21:50 Temp 98.1 Pulse 76 Resp 20 B/P (MAP) 108/57 Pulse Ox 100 O2 Delivery Room Air Departure Impression Impression: Primary Impression: Dizziness Additional Impression: Headache Disposition: 01 HOME, SELF-CARE Condition: Stable Departure-Patient Inst. Decision time for Depature: 22:34 Referrals: [facility] (PCP/Family) Primary Care Physician Patient Instructions: NO INSTRUCTIONS GIVEN Add. Discharge Instructions: All discharge instructions reviewed with patient and/or family. Voiced understanding. Work/School Note: Work Release Form Date Seen in the Emergency Department: Jun 11, 2017 Return to Work: Jun 13, 2017 GRICEL DOMINGUEZ APRN Jun 11, 2017 22:10
[2017-06-11] MEDS ORDERED: diphenhydrAMINE 50 MG/ML INJ (BENADRYL) IVP ONE (22:15)
[2017-06-11] MEDS ORDERED: NS IV 1000 ML 1,000 ML IV SCH (22:15)
[2017-06-11] MEDS ORDERED: ACETAMINOPHEN 500 MG TAB (TYLENOL) PO ONE (22:15)
[2017-06-11 22:28] LABS: ALANINE AMINOTRANSFERASE 9 U/L (0-55); ALBUMIN 3.5 GM/DL (3.2-4.5); ANION GAP 8 MMOL/L (5-14); ASPARTATE AMINO TRANSFERASE 12 U/L (5-34); BILIRUBIN,TOTAL 0.4 MG/DL (0.1-1.0); BLOOD UREA NITROGEN 7 MG/DL (7-18); BUN/CREATININE RATIO 11; CALCIUM 8.8 MG/DL (8.5-10.1); CARBON DIOXIDE 24 MMOL/L (21-32); CHLORIDE 105 MMOL/L (98-107); CREATININE SERUM 0.62 MG/DL (0.60-1.30); GFR ESTIMATED > 60; GLUCOSE 81 MG/DL (70-105); POTASSIUM 3.2 MMOL/L (3.6-5.0); SODIUM 137 MMOL/L (135-145); TOTAL PROTEIN 6.8 GM/DL (6.4-8.2)
[2017-06-11 23:26] VITALS: BP 108/57
== END 2017-06-11 23:26 | disposition home or self-care (01) ==
LOC: EDUNIT# 21:33 → ER 21:34
DX: O99.89 Other specified diseases and conditions complicating pregnancy, childbirth and the puerperium (principal); R42 Dizziness and giddiness; R51 Headache; Z3A.14 14 weeks gestation of pregnancy
CPT/HCPCS: 36415; 80053; 80306; 81000; 84703; 85025; 93041

== ENCOUNTER → 2017-07-14 | Outpatient (CLI) | payer OTHER ==
--- NOTE | 2017-07-14 17:24 | Diagnostic Imaging Report ---
INDICATION: Anatomic survey. TECHNIQUE: Multiple real-time grayscale images were obtained over the gravid uterus. COMPARISON: None FINDINGS: A single live intrauterine fetus is seen measuring 19 weeks 5 days in size by composite measurements, with sonographic EDC of 12/03/2017. The fetus is in breech presentation at this time. Amniotic fluid is qualitatively normal. Placenta is anterior with no evidence of previa. heart rate is 149 beats per minute. Cervical length is 3.5 cm. The maternal adnexa were not visualized. anatomical survey was unremarkable. Biometrical measurements are as follows: Biparietal 4.5 cm, age 19 weeks 5 days. Head circumference 16.3 cm, age 19 weeks 1 days. Abdominal circumference 14.6 cm, age 20 weeks 2 days. Femur length 3.1 cm, age 19 weeks 4 days. Sonographic estimate age: 19 weeks 5 days. Sonographic estimated date of delivery: 12/03/17. Estimated Weight: 305 gm (+/- 45 gm). LMP percentile: 59%. heart rate: 149 beats per minute. number: 1 of 1. IMPRESSION: Single live intrauterine fetus measuring 19 weeks 5 days as above. Anatomic survey showed no detectable abnormalities. Dictated by: Dictated on workstation # [id number]
== END ==
LOC: RAD 15:12
PROVIDERS: ATTEND Obstetrics & Gynecology
DX: Z36.87 Encounter for antenatal screening for uncertain dates (principal); Z3A.19 19 weeks gestation of pregnancy
CPT/HCPCS: 76805

== ENCOUNTER 2017-08-06 18:55 | Outpatient (CLI) | payer OTHER ==
[~2017-08-06] VITALS: Ht 154.9 cm; Wt 66.9 kg
[~2017-08-06 18:55] MED LIST changes: +NAPR-1071 PO; -NAPR500T PO
[2017-08-06] MEDS ORDERED: PNV11TAB5 PO (19:28)
[2017-08-06 20:50] VITALS: BP 111/59
--- NOTE | 2017-08-08 14:34 | Physician Query-Final Dx ---
SEGUNDO DIAZ 08/08/17 1434: Clinic Account Progress/Dx Physician Query: Please give diagnosis Date of Service Aug 06, 2017 at 18:55 VALERY SCHOFIELD MD 08/08/17 1729: Clinic Account Progress/Dx DIAGNOSIS: Diagnosis false labor SEGUNDO DIAZ Aug 08, 2017 14:34 VALERY SCHOFIELD MD Aug 08, 2017 17:29
== END 2017-08-06 19:35 | disposition home or self-care (01) ==
LOC: WSo 18:55 → LDRP 18:55 → WSo 19:35
PROVIDERS: ATTEND Obstetrics & Gynecology
DX: O47.02 False labor before 37 completed weeks of gestation, second trimester (principal); Z3A.22 22 weeks gestation of pregnancy
CPT/HCPCS: 99213

== ENCOUNTER 2017-09-18 09:48 | Emergency (ER) | payer MEDICAID, OTHER ==
[~2017-09-18] VITALS: Ht 154.9 cm; Wt 70.3 kg
[~2017-09-18 09:48] MED LIST changes: +PNV11TAB5 PO
--- OUTSIDE RECORDS SUMMARY | 2017-09-18 09:55 | XMS REPORT | Continuity of Care Document ---
Author Author [facility] Organization [facility] Address Unknown Phone Unavailable Allergies Active Description Code Type Severity Reaction Onset Reported/Identified Relationship to Patient Clinical Status Yes No Known Drug Allergies [id number] Drug Allergy Unknown N/A 01/17/2011 Yes nitrofurantoin [id number] Drug Allergy Unknown N/A 09/06/2014 Medications There is no data. Problems Date Dx Coded Attending Type Code Diagnosis Diagnosed By 01/20/2011 Ot 285.9 ANEMIA NOS 01/20/2011 Ot 644.21 EARLY ONSET DELIVERY-DEL 01/20/2011 Ot 648.21 ANEMIA- DELIVERED 01/20/2011 Ot 663.31 CORD ENTANGLE NEC-DELIV 01/20/2011 Ot V07.2 PROPHYLACT IMMUNOTHERAPY 01/20/2011 Ot V27.0 DELIVER- SINGLE LIVEBORN 04/09/2012 Ot 380.10 INFEC OTITIS EXTERNA [...] MCLAIN MD Ot 708.9 URTICARIA NOS 09/24/2014 CHEMO MD, AIDAN A Ot 782.1 NONSPECIF SKIN ERUPT NEC 09/30/2014 JOSUÉ CAMPOS DO Ot 644.03 09/30/2014 JOSUÉ CAMPOS DO Ot 644.03 THRT DOTTIE LABOR-ANTEPART 10/12/2014 JOSUÉ CAMPOS DO Ot 644.13 THREAT LABOR NEC-ANTEPAR 10/18/2014 JOSUÉ CAMPOS DO Ot 664.01 DEL W 1 DEG LACERAT-DEL 10/18/2014 BTEH CONDE JOSUÉ Moya Ot V27.0 DELIVER-SINGLE LIVEBORN 01/20/2015 GRICEL DOMINGUEZ [...] ACUTE MAXILLARY SINUSITIS, UNSPECIFIED 04/04/2016 GRICEL DOMINGUEZ DEPARTMENT [employer] Ot R51 HEADACHE 04/04/2016 GRICEL DOMINGUEZ DEPARTMENT HEAD [employer]IVERSITY Ot J01.00 ACUTE MAXILLARY SINUSITIS, UNSPECIFIED 04/04/2016 GRICEL DOMINGUEZ DEPARTMENT HEAD COLLEGE OR UNIVERSITY Ot R51 HEADACHE 11/26/2016 MARIE MCCALL Ot M54.9 DORSALGIA, UNSPECIFIED 11/26/2016 MARIE MCCALL Ot M94.0 CHONDROCOSTAL JUNCTION SYNDROME [TIETZE] 11/27/2016 BLAINE HUNTER DO Ot R11.2 NAUSEA WITH VOMITING, UNSPECIFIED 11/27/2016 MARIE MCCALL Ot M54.9 DORSALGIA, UNSPECIFIED 11/27/2016 MARIE MCCALL Ot M94.0 CHONDROCOSTAL JUNCTION SYNDROME [TIETZE] 01/21/2017 BLAINE HUNTER DO Ot R11.2 NAUSEA WITH VOMITING, UNSPECIFIED 01/21/2017 GRICEL DOMINGUEZ APRN Ot R20.2 PARESTHESIA OF SKIN 01/21/2017 GRICEL DOMINGUEZ APRN Ot R42 DIZZINESS AND GIDDINESS 01/22/2017 GRICEL DOMINGUEZ APRN Ot R20.2 PARESTHESIA OF SKIN 01/22/2017 GRICEL DOMINGUEZ APRN Ot R42 DIZZINESS AND GIDDINESS 01/27/2017 GRICEL DOMINGUEZ APRN Ot R20.2 PARESTHESIA OF SKIN 01/27/2017 GRICEL DOMINGUEZ APRN Ot R42 DIZZINESS AND GIDDINESS 03/13/2017 BLAINE HUNTER DO Ot R11.2 NAUSEA WITH VOMITING, UNSPECIFIED 03/14/2017 GRICEL DOMINGUEZ APRN Ot R20.2 PARESTHESIA OF SKIN 03/14/2017 GRICEL DOMINGUEZ APRN Ot R42 DIZZINESS AND GIDDINESS 03/30/2017 Ot O99.89 OTH DISEASES AND CONDITIONS COMPL PREG/C 03/30/2017 Ot R11.0 NAUSEA 03/30/2017 Ot Z3A.00 WEEKS OF GESTATION OF NOT SPEC 03/30/2017 Ot Z87.19 PERSONAL HISTORY OF OTHER DISEASES OF TH 06/11/2017 GRICEL DOMINGUEZ APRN Ot O99.89 OTH DISEASES AND CONDITIONS COMPL PREG/C 06/11/2017 GRICEL DOMINGUEZ APRN Ot R42 DIZZINESS AND GIDDINESS 06/11/2017 GRICEL DOMINGUEZ APRN Ot R51 HEADACHE 06/11/2017 GRICEL DOMINGUEZ APRN Ot Z3A.14 14 WEEKS GESTATION OF 06/18/2017 GRICEL DOMINGUEZ APRN Ot O99.89 OTH DISEASES AND CONDITIONS COMPL PREG/C 06/18/2017 GRICEL DOMINGUEZ APRN Ot R42 DIZZINESS AND GIDDINESS 06/18/2017 GRICEL DOMINGUEZ APRN Ot R51 HEADACHE 06/18/2017 GRICEL DOMINGUEZ APRN Ot Z3A.14 14 WEEKS GESTATION OF 07/14/2017 BLAINE HUNTER DO Ot R11.2 NAUSEA WITH VOMITING, UNSPECIFIED 07/30/2017 JOSUÉ CAMPOS DO Ot Z36.87 ENCOUNTER FOR SCREENING FOR UN 07/30/2017 JOSUÉ CAMPOS DO, Ot Z3A.19 19 WEEKS GESTATION OF 08/06/2017 VALERY SCHOFIELD MD Ot O47.02 FALSE LABOR BEFORE 37 COMPLETED WEEKS OF 08/06/2017 VALERY SCHOFIELD MD, Ot Z3A.22 22 WEEKS GESTATION OF 08/07/2017 BLAINE HUNTER DO Ot R11.2 NAUSEA WITH VOMITING, UNSPECIFIED 08/07/2017 JOSUÉ CAMPOS DO Ot Z36.87 ENCOUNTER FOR SCREENING FOR UN 08/07/2017 JOSUÉ CAMPOS DO Ot Z3A.19 19 WEEKS GESTATION OF Procedures Code Description Performed By Performed On 73.6 01/18/2011 75.69 REPAIR OB LACERATION NEC 10/17/2014 Results Test Result Range Complete urinalysis with reflex to culture - 01/21/17 16:14 Urine color determination YELLOW NRG Urine clarity determination CLEAR NRG Urine pH measurement by test strip 7 5-9 Specific gravity of urine by test strip 1.010 1.016- 1.022 Urine protein assay by test strip, semi-quantitative NEGATIVE NEGATIVE Urine glucose detection by automated test strip NEGATIVE NEGATIVE Erythrocytes detection in urine sediment by light microscopy NEGATIVE NEGATIVE Urine ketones detection by automated test strip NEGATIVE NEGATIVE Urine nitrite detection by test strip NEGATIVE NEGATIVE Urine total bilirubin detection by test strip NEGATIVE NEGATIVE Urine urobilinogen measurement by automated test strip (mass/volume) NORMAL NORMAL Urine leukocyte esterase detection by dipstick 1+ NEGATIVE Automated urine sediment erythrocyte count by microscopy (number/high power field) NONE NRG Automated urine sediment leukocyte count by microscopy (number/high power field ) [HPF] NRG Bacteria detection in urine sediment by light microscopy TRACE NRG Squamous epithelial cells detection in urine sediment by light microscopy 0-2 NRG Crystals detection in urine sediment by light microscopy NONE NRG Casts detection in urine sediment by light microscopy NONE NRG Mucus detection in urine sediment by light microscopy NEGATIVE NRG Complete urinalysis with reflex to culture NO NRG Urine drug screening test - 01/21/17 16:15 Urine phencyclidine detection by screening method NEGATIVE NEGATIVE Urine benzodiazepines detection by screening method NEGATIVE NEGATIVE Urine cocaine detection NEGATIVE NEGATIVE Urine amphetamines detection by screening method NEGATIVE NEGATIVE Urine methamphetamine detection by screening method NEGATIVE NEGATIVE Urine cannabinoids detection by screening method NEGATIVE NEGATIVE Urine opiates detection by screening method NEGATIVE NEGATIVE Urine barbiturates detection NEGATIVE NEGATIVE Screening urine tricyclic antidepressants detection NEGATIVE NEGATIVE Urine methadone detection by screening method NEGATIVE NEGATIVE Urine oxycodone detection NEGATIVE NEGATIVE Urine propoxyphene detection NEGATIVE NEGATIVE Complete blood count (CBC) with automated white blood cell (WBC) differential - 01/21/17 16:36 Blood leukocytes automated count (number/volume) 8.9 10*3/uL 4.3-11.0 Blood erythrocytes automated count (number/volume) 4.60 10*6/uL 4.35-5.85 Venous blood hemoglobin measurement (mass/volume) 13.0 g/dL 11.5-16.0 Blood hematocrit (volume fraction) 40 % 35-52 Automated erythrocyte mean corpuscular volume 87 [foz_us] 80-99 Automated erythrocyte mean corpuscular hemoglobin (mass per erythrocyte) 28 pg 25-34 Automated erythrocyte mean corpuscular hemoglobin concentration measurement ( mass/volume) 33 g/dL 32-36 Automated erythrocyte distribution width ratio 13.9 % 10.0-14.5 Automated blood platelet count (count/volume) 146 10*3/uL 130-400 Automated blood platelet mean volume measurement 13.0 [foz_us] 7.4-10.4 Automated blood neutrophils/100 leukocytes 67 % 42-75 Automated blood lymphocytes/100 leukocytes 24 % 12-44 Blood monocytes/100 leukocytes 8 % 0-12 Automated blood eosinophils/100 leukocytes 1 % 0-10 Automated blood basophils/100 leukocytes 0 % 0-10 Blood neutrophils automated count (number/volume) 6.0 10*3 1.8-7.8 Blood lymphocytes automated count (number/volume) 2.1 10*3 1.0-4.0 Blood monocytes automated count (number/volume) 0.7 10*3 0.0-1.0 Automated eosinophil count 0.1 10*3/uL 0.0-0.3 Automated blood basophil count (count/volume) 0.0 10*3/uL 0.0-0.1 Comprehensive metabolic panel - 01/21/17 16:36 Serum or plasma sodium measurement (moles/volume) 139 mmol/L 135-145 Serum or plasma potassium measurement (moles/volume) 4.5 mmol/L 3.6-5.0 Serum or plasma chloride measurement (moles/volume) 106 mmol/L 98-107 Carbon dioxide 26 mmol/L 21-32 Serum or plasma anion gap determination (moles/volume) 7 mmol/L 5-14 Serum or plasma urea nitrogen measurement (mass/volume) 10 mg/dL 7-18 Serum or plasma creatinine measurement (mass/volume) 0.75 mg/dL 0.60-1.30 Serum or plasma urea nitrogen/creatinine mass ratio 13 NRG Serum or plasma creatinine measurement with calculation of estimated glomerular filtration rate > NRG Serum or plasma glucose measurement (mass/volume) 90 mg/dL 70-105 Serum or plasma calcium measurement (mass/volume) 9.3 mg/dL 8.5-10.1 Serum or plasma total bilirubin measurement (mass/volume) 0.5 mg/dL 0.1-1.0 Serum or plasma alkaline phosphatase measurement (enzymatic activity/volume) 51 U/L 40-136 Serum or plasma aspartate aminotransferase measurement (enzymatic activity/ volume) 16 U/L 5-34 Serum or plasma alanine aminotransferase measurement (enzymatic activity/volume ) 11 U/L 0-55 Serum or plasma protein measurement (mass/volume) 7.2 g/dL 6.4-8.2 Serum or plasma albumin measurement (mass/volume) 4.1 g/dL 3.2-4.5 THYROID STIMULATING HORMONE - 01/21/17 16:36 THYROID STIMULATING HORMONE 0.92 u[iU]/mL 0.35-4.94 Complete blood count (CBC) with automated white blood cell (WBC) differential - 06/11/17 21:58 Blood leukocytes automated count (number/volume) 9.0 10*3/uL 4.3-11.0 Blood erythrocytes automated count (number/volume) 4.25 10*6/uL 4.35-5.85 Venous blood hemoglobin measurement (mass/volume) 12.4 g/dL 11.5-16.0 Blood hematocrit (volume fraction) 36 % 35-52 Automated erythrocyte mean corpuscular volume 85 [foz_us] 80-99 Automated erythrocyte mean corpuscular hemoglobin (mass per erythrocyte) 29 pg 25-34 Automated erythrocyte mean corpuscular hemoglobin concentration measurement ( mass/volume) 34 g/dL 32-36 Automated erythrocyte distribution width ratio 13.5 % 10.0-14.5 Automated blood platelet count (count/volume) 144 10*3/uL 130-400 Automated blood platelet mean volume measurement 12.2 [foz_us] 7.4-10.4 Automated blood neutrophils/100 leukocytes 73 % 42-75 Automated blood lymphocytes/100 leukocytes 20 % 12-44 Blood monocytes/100 leukocytes 7 % 0-12 Automated blood eosinophils/100 leukocytes 1 % 0-10 Automated blood basophils/100 leukocytes 0 % 0-10 Blood neutrophils automated count (number/volume) 6.6 10*3 1.8-7.8 Blood lymphocytes automated count (number/volume) 1.8 10*3 1.0-4.0 Blood monocytes automated count (number/volume) 0.6 10*3 0.0-1.0 Automated eosinophil count 0.1 10*3/uL 0.0-0.3 Automated blood basophil count (count/volume) 0.0 10*3/uL 0.0-0.1 Complete urinalysis with reflex to culture - 06/11/17 21:58 Urine color determination YELLOW NRG Urine clarity determination CLEAR NRG Urine pH measurement by test strip 6 5-9 Specific gravity of urine by test strip 1.020 1.016- 1.022 Urine protein assay by test strip, semi-quantitative NEGATIVE NEGATIVE Urine glucose detection by automated test strip NEGATIVE NEGATIVE Erythrocytes detection in urine sediment by light microscopy NEGATIVE NEGATIVE Urine ketones detection by automated test strip NEGATIVE NEGATIVE Urine nitrite detection by test strip NEGATIVE NEGATIVE Urine total bilirubin detection by test strip NEGATIVE NEGATIVE Urine urobilinogen measurement by automated test strip (mass/volume) NORMAL NORMAL Urine leukocyte esterase detection by dipstick 1+ NEGATIVE Automated urine sediment erythrocyte count by microscopy (number/high power field) NONE NRG Automated urine sediment leukocyte count by microscopy (number/high power field ) [HPF] NRG Bacteria detection in urine sediment by light microscopy FEW NRG Squamous epithelial cells detection in urine sediment by light microscopy 5-10 NRG Crystals detection in urine sediment by light microscopy NONE NRG Casts detection in urine sediment by light microscopy NONE NRG Mucus detection in urine sediment by light microscopy TRACE NRG Complete urinalysis with reflex to culture NO NRG Comprehensive metabolic panel - 06/11/17 21:58 Serum or plasma sodium measurement (moles/volume) 137 mmol/L 135-145 Serum or plasma potassium measurement (moles/volume) 3.2 mmol/L 3.6-5.0 Serum or plasma chloride measurement (moles/volume) 105 mmol/L 98-107 Carbon dioxide 24 mmol/L 21-32 Serum or plasma anion gap determination (moles/volume) 8 mmol/L 5-14 Serum or plasma urea nitrogen measurement (mass/volume) 7 mg/dL 7-18 Serum or plasma creatinine measurement (mass/volume) 0.62 mg/dL 0.60-1.30 Serum or plasma urea nitrogen/creatinine mass ratio 11 NRG Serum or plasma creatinine measurement with calculation of estimated glomerular filtration rate > NRG Serum or plasma glucose measurement (mass/volume) 81 mg/dL 70-105 Serum or plasma calcium measurement (mass/volume) 8.8 mg/dL 8.5-10.1 Serum or plasma total bilirubin measurement (mass/volume) 0.4 mg/dL 0.1-1.0 Serum or plasma alkaline phosphatase measurement (enzymatic activity/volume) 49 U/L 40-136 Serum or plasma aspartate aminotransferase measurement (enzymatic activity/ volume) 12 U/L 5-34 Serum or plasma alanine aminotransferase measurement (enzymatic activity/volume ) 9 U/L 0-55 Serum or plasma protein measurement (mass/volume) 6.8 g/dL 6.4-8.2 Serum or plasma albumin measurement (mass/volume) 3.5 g/dL 3.2-4.5 Urine drug screening test - 06/11/17 21:58 Urine phencyclidine detection by screening method NEGATIVE NEGATIVE Urine benzodiazepines detection by screening method NEGATIVE NEGATIVE Urine cocaine detection NEGATIVE NEGATIVE Urine amphetamines detection by screening method NEGATIVE NEGATIVE Urine methamphetamine detection by screening method NEGATIVE NEGATIVE Urine cannabinoids detection by screening method POSITIVE NEGATIVE Urine opiates detection by screening method NEGATIVE NEGATIVE Urine barbiturates detection NEGATIVE NEGATIVE Screening urine tricyclic antidepressants detection NEGATIVE NEGATIVE Urine methadone detection by screening method NEGATIVE NEGATIVE Urine oxycodone detection NEGATIVE NEGATIVE Urine propoxyphene detection NEGATIVE NEGATIVE Encounters ACCT No. Visit Date/Time Discharge Status Pt. Type Provider Facility Loc./Unit Complaint [id number] 08/06/2017 18:55:00 08/06/2017 19:35:00 DIS Outpatient VALERY SCHOFIELD MD [facility] WSo POSSIBLE CONTRACTIONS [id number] 07/14/2017 15:12:00 07/14/2017 23:59:59 CLS Outpatient JOSUÉ CAMPOS DO [facility] RAD Z33.1 [id number] 06/11/2017 21:34:00 06/11/2017 23:26:00 DIS Emergency GRICEL DOMINGUEZ APRN [facility] ER [id number] PREG,HEADACHE/ DIZZINESS [id number] 01/21/2017 15:54:00 01/21/2017 17:52:00 DIS Emergency GRICEL DOMINGUEZ APRN [facility] ER LIGHT HEADED/DIZZY/SHAKEY [id number] 11/26/2016 21:41:00 11/26/2016 22:59:00 DIS Emergency MARIE MCCALL [facility] ER UPPER BACK PAIN [id number] 04/03/2016 13:58:00 04/03/2016 14:10:00 DIS Emergency GRICEL DOMINGUEZ APRN [facility] ER EARACHE HEADACHE CONGESTION [id number] 08/16/2015 08:45:00 08/16/2015 23:59:59 CLS Outpatient BLAINE HUNTER DO [facility] RAD N/V [id number] 03/28/2015 12:24:00 03/28/2015 16:34:00 DIS Emergency MARIE MCCALL [facility] ER ABD/LOW BACK PAIN SPOTTING FEVER [id number] 01/20/2015 11:17:00 01/20/2015 11:41:00 DIS Emergency GRICEL DOMINGUEZ APRN [facility] ER TOOTHACHE [id number] 10/12/2014 13:09:00 10/12/2014 15:40:00 DIS Outpatient JOSUÉ CAMPOS DO [facility] WSo CONTRACTIONS [id number] 09/29/2014 11:30:00 09/30/2014 10:59:00 DIS Inpatient JOSUÉ CAMPOS DO [facility] LDRP LABOR [id number] 09/24/2014 23:00:00 09/24/2014 23:35:00 DIS Emergency AIDAN MCLAIN MD [facility] ER RASH [id number] 09/07/2014 15:04:00 09/07/2014 15:22:00 DIS Outpatient JOSUÉ CAMPOS DO [facility] WSo THRT OF PRE TERM LABOR [id number] 09/06/2014 15:45:00 09/07/2014 09:30:00 DIS Inpatient JOSUÉ CAMPOS DO [facility] LDRP PRE-TERM CONTRACTIONS [id number] 07/15/2014 18:29:00 07/15/2014 19:29:00 DIS Outpatient BETH JOSUÉ Nita [facility] WSo ABD PAIN, DEC MOVEMENT [id number] 05/01/2014 12:53:00 05/01/2014 14:50:00 DIS Emergency LI MARY ALICE CONDE Marlene [facility] ER ABD PAIN @ 13 WEEKS [id number] 03/30/2017 20:04:00 Document Registration [id number] 10/17/2014 00:00:00 ACT Inpatient BETH DO JOSUÉ Nita [facility] LDRP CONTRACTIONS [id number] 04/09/2012 21:24:00 Document Registration [id number] 01/17/2011 16:07:00 Document Registration
[2017-09-18] MEDS ORDERED: LACTATED RINGERS 1,000 ML IV ONE (10:35)
[2017-09-18 10:39] LABS: BASOPHILS % (AUTO) 0 % (0-10); EOSINOPHILS % (AUTO) 0 % (0-10); HEMATOCRIT 32 % (35-52); HEMOGLOBIN 10.9 G/DL (11.5-16.0); LYMPHOCYTES # (AUTO) 0.3 X 10^3 (1.0-4.0); LYMPHOCYTES % (AUTO) 4 % (12-44); MEAN CORPUSCULAR HEMOGLOBIN 29 PG (25-34); MEAN CORPUSCULAR HGB CONC 34 G/DL (32-36); MEAN CORPUSCULAR VOLUME 86 FL (80-99); MEAN PLATELET VOLUME 12.6 FL (7.4-10.4); MONOCYTES # (AUTO) 0.4 X 10^3 (0.0-1.0); MONOCYTES % (AUTO) 5 % (0-12); NEUTROPHILS % (AUTO) 90 % (42-75); PLATELET COUNT 133 10^3/uL (130-400); RED BLOOD COUNT 3.74 10^6/uL (4.35-5.85); RED CELL DISTRIBUTION WIDTH 13.8 % (10.0-14.5); WHITE BLOOD COUNT 7.7 10^3/uL (4.3-11.0)
[2017-09-18] MEDS ORDERED: APAP 325 MG/10.15 ML LIQ (TYLENOL) UDC PO ONE (10:45)
--- NOTE | 2017-09-18 11:03 | ED Cough/URI ---
General Chief Complaint: Cough/Cold/Flu Symptoms Stated Complaint: FLU SYMPTOMS,28WEEKS PREG Source: patient History of Present Illness Date Seen by Provider: Sep 18, 2017 Time Seen by Provider: 10:29 Initial Comments PT STATES SHE BEGAN GETTING SICK YESTERDAY C/O SUBJECTIVE FEVER C/O NON-PRODUCTIVE COUGH AND RUNNY NOSE C/O BODY ACHES C/O SORE THROAT NO CHEST PAIN OR SHORTNESS OF BREATH NO NAUSEA/VOMITING PT IS 28 WEEKS . HAD ROUTINE OB VISIT WITH DR. CAMPOS AND GLUCOSE TOLERANCE TEST LAST WEEK-ALL NORMAL LMP 02/28/17. EDC 12/05/17 PT IS AB 0 NO PROBLEMS WITH THIS BOYFRIEND HAS BEEN SICK WITH SAME SYMPTOMS THE LAST FEW DAYS-DID NOT SEEK CARE. CHILDREN ARE NOT ILL YET. VETERINARY VIROLOGIST: DR. CAMPOS PCP: [facility] [place] Allergies and Home Medications Allergies Coded Allergies: nitrofurantoin (Unverified Allergy, Unknown, 09/06/14) throat swelling Home Medications Doxylamine/Pyridoxine HCl 1 Each Tablet.dr, 1 EACH PO DAILY PRN for NAUSEA/ VOMITING-1ST LINE, #20 Ref 0 1 po qhs. if no improvement in 2-3 days you may increase to 1 po BID. Prescribed by: MARIE VAZQUEZ on 03/30/172115 Nrr310/FA/Omega3/Dha/Fish Oil 1 Each Tab.chew, 1 EACH PO DAILY, (Reported) Constitutional: see HPI, fever, malaise, weakness EENTM: see HPI, nose congestion, throat pain Respiratory: see HPI, cough, No short of breath, No wheezing Cardiovascular: no symptoms reported Gastrointestinal: no symptoms reported Genitourinary: no symptoms reported : Yes Expected Date of Delivery: Dec 05, 2017 LMP: Feb 28, 2017 Musculoskeletal: see HPI (BODY ACHES) Skin: no symptoms reported Psychiatric/Neurological: No Symptoms Reported Hematologic/Lymphatic: No Symptoms Reported Immunological/Allergic: no symptoms reported Past Qeeiyjs-Yzooop-Rdnfye Hx Patient Social History Alcohol Use: Denies Use Recreational Drug Use: No Smoking Status: Never a Smoker 2nd Hand Smoke Exposure: No Recent Foreign Travel: No Contact w/Someone Who Travel: No Recent Hopitalizations: No Immunizations Up To Date Tetanus Booster (TDap): Less than 5yrs PED Vaccines UTD: No Seasonal Allergies Seasonal Allergies: No Surgeries History of Surgeries: No Respiratory History of Respiratory Disorde: No Cardiovascular History of Cardiac Disorders: No Neurological History of Neurological Disord: No Reproductive System : Yes Hx : 3 Hx Para: 2 Hx Total # of Abortions (Spona: 0 Hx Reproductive Disorders: No Sexually Transmitted Disease: No HIV/AIDS: No Female Reproductive Disorders: Denies Genitourinary History of Genitourinary Disor: No Gastrointestinal History of Gastrointestinal Di: Yes Gastrointestinal Disorders: Gall Bladder Disease Musculoskeletal History of Musculoskeletal Dis: No Endocrine History of Endocrine Disorders: No HEENT History of HEENT Disorders: No Loss of Vision: Denies Hearing Impairment: Denies Cancer History of Cancer: No Psychosocial History of Psychiatric Problem: No Integumentary History of Skin or Integumenta: No Blood Transfusions History of Blood Disorders: No Adverse Reaction to a Blood Tr: No Family Medical History Significant Family History: No Pertinent Family Hx Family Medial History: Patient reports no known family medical history. Physical Exam Vital Signs Vital Sign - Last 12Hours 09/18/17 10:00 Temp 102.1 Pulse 129 Resp 18 B/P (MAP) 122/68 (86) Pulse Ox 100 Capillary Refill : General Appearance: WD/WN, no apparent distress, other (LOOKS MILDLY ILL) HEENT: PERRL/EOMI, TMs normal, pharynx normal (EXCEPT GEOGRAPHIC TONGUE) Neck: non-tender, full range of motion, supple, normal inspection Respiratory: normal breath sounds, no respiratory distress, no accessory muscle use Cardiovascular: normal peripheral pulses, no edema, no JVD, no murmur, tachycardia Gastrointestinal: normal bowel sounds, non tender, soft, other (GRAVID UTERUS) Extremities: normal range of motion, normal inspection, no pedal edema, no calf tenderness, normal capillary refill Neurologic/Psychiatric: lunchroom attendant II-XII nml as tested, no motor/sensory deficits, alert, normal mood/affect, oriented x 3 Skin: normal color, warm/dry, No rash Focused Exam Evaluation Lactate Level Laboratory Tests 09/18/17 11:14: Lactic Acid Level 0.96 Lactic Acid Level Laboratory Tests Test 09/18/17 11:14 Lactic Acid Level 0.96 MMOL/L (0.50-2.00) Progress/Results/Core Measures Suspected Sepsis SIRS Temperature: Pulse: Respiratory Rate: Laboratory Tests 09/18/17 10:15: White Blood Count 7.7 Blood Pressure / Mean: Laboratory Tests 09/18/17 11:14: Lactic Acid Level 0.96 Laboratory Tests 09/18/17 10:15: Creatinine 0.69, Platelet Count 133, Total Bilirubin 0.8 Results/Orders Lab Results Laboratory Tests Test 09/18/17 10:15 09/18/17 11:14 09/18/17 12:00 Range/Units White Blood Count 7.7 4.3-11.0 10^3/uL Red Blood Count 3.74 L 4.35-5.85 10^6/uL Hemoglobin 10.9 L 11.5-16.0 G/DL Hematocrit 32 L 35-52 % Mean Corpuscular Volume 86 80-99 FL Mean Corpuscular Hemoglobin 29 25-34 PG Mean Corpuscular Hemoglobin Concent 34 32-36 G/DL Red Cell Distribution Width 13.8 10.0-14.5 % Platelet Count 133 130-400 10^3/uL Mean Platelet Volume 12.6 H 7.4-10.4 FL Neutrophils (%) (Auto) 90 H 42-75 % Lymphocytes (%) (Auto) 4 L 12-44 % Monocytes (%) (Auto) 5 0-12 % Eosinophils (%) (Auto) 0 0-10 % Basophils (%) (Auto) 0 0-10 % Neutrophils # (Auto) 7.0 1.8-7.8 X 10^3 Lymphocytes # (Auto) 0.3 L 1.0-4.0 X 10^3 Monocytes # (Auto) 0.4 0.0-1.0 X 10^3 Eosinophils # (Auto) 0.0 0.0-0.3 10^3/uL Basophils # (Auto) 0.0 0.0-0.1 10^3/uL Neutrophils % (Manual) 91 % Lymphocytes % (Manual) 5 % Monocytes % (Manual) 2 % Eosinophils % (Manual) 0 % Basophils % (Manual) 0 % Metamyelocytes % % Band Neutrophils 2 % Blood Morphology Comment NORMAL Sodium Level 136 135-145 MMOL/L Potassium Level 3.1 L 3.6-5.0 MMOL/L Chloride Level 104 98-107 MMOL/L Carbon Dioxide Level 20 L 21-32 MMOL/L Anion Gap 12 5-14 MMOL/L Blood Urea Nitrogen 4 L 7-18 MG/DL Creatinine 0.69 0.60-1.30 MG/DL Estimat Glomerular Filtration Rate > 60 BUN/Creatinine Ratio 6 Glucose Level 89 70-105 MG/DL Calcium Level 8.4 L 8.5-10.1 MG/DL Total Bilirubin 0.8 0.1-1.0 MG/DL Aspartate Amino Transf (AST/SGOT) 26 5-34 U/L Alanine Aminotransferase (ALT/SGPT) 22 0-55 U/L Alkaline Phosphatase 91 40-136 U/L Total Protein 7.1 6.4-8.2 GM/DL Albumin 3.5 3.2-4.5 GM/DL Lactic Acid Level 0.96 0.50-2.00 MMOL/L Urine Color YELLOW Urine Clarity SLIGHTLY CLOUDY Urine pH 5 5-9 Urine Specific Landers 1.010 L 1.016-1.022 Urine Protein NEGATIVE NEGATIVE Urine Glucose (UA) NEGATIVE NEGATIVE Urine Ketones 4+ H NEGATIVE Urine Nitrite NEGATIVE NEGATIVE Urine Bilirubin NEGATIVE NEGATIVE Urine Urobilinogen NORMAL NORMAL MG/DL Urine Leukocyte Esterase 3+ H NEGATIVE Urine RBC (Auto) NEGATIVE NEGATIVE Urine RBC NONE /HPF Urine WBC 10-25 H /HPF Urine Squamous Epithelial Cells 10-25 H /HPF Urine Crystals NONE /LPF Urine Bacteria MODERATE H /HPF Urine Casts NONE /LPF Urine Mucus NEGATIVE /LPF Urine Culture Indicated YES Micro Results Microbiology 09/18/17 Influenza Types A,B Antigen (CARSON) - Final, Complete My Orders Orders - MARY ALICE JEFFERSON DO Influenza A And B Antigens (09/18/17 10:28) Heart Tones (09/18/17 10:28) Cbc With Automated Diff (09/18/17 10:31) Saline Lock/Iv-Start (09/18/17 10:35) Comprehensive Metabolic Panel (09/18/17 10:35) Lactic Acid Analyzer (09/18/17 10:35) Ua Culture If Indicated (09/18/17 10:35) Blood Culture (09/18/17 10:35) Saline Lock/Iv-Start (09/18/17 10:35) Lactated Ringers (Lr 1000 Ml Iv Solution (09/18/17 10:35) Acetaminophen Oral Solution (Tylenol Ora (09/18/17 10:45) Manual Differential (09/18/17 10:15) Oseltamivir Oral Suspension (Tamiflu Ora (09/18/17 21:00) Urine Culture (09/18/17 12:00) Rx-Oseltamivir Suspension (Rx-Tamiflu Centeno (09/18/17 13:19) Medications Given in ED Current Medications Medications Dose Ordered Sig/Jose Miguel Route Start Time Stop Time Status Last Admin Dose Admin Acetaminophen 1,000 mg ONCE ONCE PO 09/18/17 10:45 09/18/17 10:46 DC 09/18/17 11:48 1,000 MG Lactated Ringer's 1,000 ml @ 0 mls/hr Q0M ONCE IV 09/18/17 10:35 09/18/17 10:38 DC 09/18/17 11:47 1,000 MLS/HR Vital Signs/I&O Vital Sign - Last 12Hours 09/18/17 09/18/17 10:00 13:30 Temp 102.1 99.4 Pulse 129 92 Resp 18 18 B/P (MAP) 122/68 (86) Pulse Ox 100 100 Capillary Refill : Progress Note : Progress Note FEELS BETTER AT DISMISSAL--HEART RATE DOWN TO 92, TEMP DOWN TO 99.4 FHR 175 Departure Communication (Admissions) Progress Notes 1212--SPOKE WITH DR. CAMPOS, INFORMED OF INFLUENZA A. HE AGREES WITH PLAN OF CARE. Impression Impression: Primary Impression: Influenza A Additional Impression: 28 weeks gestation of Disposition: 01 HOME, SELF-CARE Condition: Stable Departure-Patient Inst. Referrals: [facility] (PCP) Primary Care Physician JOSUÉ CAMPOS DO (Family) Primary Care Physician Patient Instructions: Flu, Adult (DC) Add. Discharge Instructions: TYLENOL 1 GRAM 4 TIMES A DAY FOR PAIN OR FEVER LOTS OF CLEAR LIQUIDS--WATER, BROTH, JELLO, GATORADE TAKE YOUR TAMIFLU 75 MG TWICE A DAY FOR 5 DAYS FOLLOW UP WITH [facility] IN 4-5 DAYS IF NO BETTER All discharge instructions reviewed with patient and/or family. Voiced understanding. MARY ALICE JEFFERSON DO Sep 18, 2017 11:03
[2017-09-18 11:05] LABS: ALANINE AMINOTRANSFERASE 22 U/L (0-55); ALBUMIN 3.5 GM/DL (3.2-4.5); ALKALINE PHOSPHATASE 91 U/L (40-136); BILIRUBIN,TOTAL 0.8 MG/DL (0.1-1.0); BUN/CREATININE RATIO 6; CALCIUM 8.4 MG/DL (8.5-10.1); CARBON DIOXIDE 20 MMOL/L (21-32); CHLORIDE 104 MMOL/L (98-107); CREATININE SERUM 0.69 MG/DL (0.60-1.30); GFR ESTIMATED > 60; GLUCOSE 89 MG/DL (70-105); POTASSIUM 3.1 MMOL/L (3.6-5.0); SODIUM 136 MMOL/L (135-145); TOTAL PROTEIN 7.1 GM/DL (6.4-8.2)
[2017-09-18 11:12] LABS: BAND NEUTROPHILS 2 %; BASOPHILS % (MANUAL) 0 %; EOSINOPHILS % (MANUAL) 0 %; LYMPHOCYTES % (MANUAL) 5 %; MONOCYTES % (MANUAL) 2 %; NEUTROPHILS % (MANUAL) 91 %; RBC MORPH NORMAL
[2017-09-18 12:15] LABS: BILIRUBIN,URINE NEGATIVE (NEGATIVE); CLARITY,URINE SLIGHTLY CLOUDY; COLOR,URINE YELLOW; GLUCOSE, URINE (UA) NEGATIVE (NEGATIVE); KETONES,URINE 4+ (NEGATIVE); LEUKOCYTE ESTERASE ,URINE 3+ (NEGATIVE); NITRITE,URINE NEGATIVE (NEGATIVE); PH,URINE 5 (5-9); PROTEIN,URINE NEGATIVE (NEGATIVE); UROBILINOGEN,URINE NORMAL (NORMAL)
[2017-09-18 12:24] LABS: BACTERIA,URINE MODERATE /HPF
[2017-09-18] MEDS ORDERED: RX-OSELTAMIVIR 6 MG/ML (TAMIFLU) BOT PO ONE (13:19)
[2017-09-18 13:30] VITALS: BP 116/68
[2017-09-18] MEDS ORDERED: OSELTAMIVIR 6 MG/ML (TAMIFLU) 60 ML BOT PO SCH (21:00)
== END 2017-09-18 13:30 | disposition home or self-care (01) ==
LOC: EDUNIT# 09:48 → ER 09:51
DX: O99.513 Diseases of the respiratory system complicating pregnancy, third trimester (principal); J10.1 Influenza due to other identified influenza virus with other respiratory manifestations; Z3A.28 28 weeks gestation of pregnancy; Z87.19 Personal history of other diseases of the digestive system
CPT/HCPCS: 36415; 80053; 81000; 83605; 85007; 85027; 87040; 87088; 87186; 87804; 96360

== ENCOUNTER 2017-11-14 21:45 | Outpatient (CLI) | payer MEDICAID ==
[~2017-11-14] VITALS: Ht 154.9 cm; Wt 71.7 kg
[2017-11-14 22:05] VITALS: BP 107/66
[2017-11-14 22:18] LABS: BILIRUBIN,URINE NEGATIVE (NEGATIVE); CLARITY,URINE CLEAR; COLOR,URINE YELLOW; GLUCOSE, URINE (UA) NEGATIVE (NEGATIVE); KETONES,URINE 2+ (NEGATIVE); LEUKOCYTE ESTERASE ,URINE NEGATIVE (NEGATIVE); NITRITE,URINE NEGATIVE (NEGATIVE); PH,URINE 6.5 (5-9); PROTEIN,URINE 1+ (NEGATIVE); UROBILINOGEN,URINE 1 MG/DL (NORMAL)
[2017-11-14] MEDS ORDERED: CALC500T7 PO (22:21)
--- NOTE | 2017-11-17 11:48 | Physician Query-Final Dx ---
SEGUNDO DIAZ 11/17/17 1148: Clinic Account Progress/Dx Physician Query: Please give diagnosis Date of Service Nov 14, 2017 at 21:45 JOSUÉ CAMPOS DO 11/17/17 2121: Clinic Account Progress/Dx DIAGNOSIS: Diagnosis 36 week IUP Prolonged latent phase labor SEGUNDO DIAZ Nov 17, 2017 11:48 JOSUÉ CAMPOS DO Nov 17, 2017 21:21
== END 2017-11-14 23:34 | disposition home or self-care (01) ==
LOC: WSo 21:45 → LDRP 21:45 → WSo 23:34
PROVIDERS: ATTEND Obstetrics & Gynecology
DX: O62.0 Primary inadequate contractions (principal); Z3A.36 36 weeks gestation of pregnancy
CPT/HCPCS: 81000; 99213

== ENCOUNTER 2017-11-17 18:06 | Inpatient (IN) | payer MEDICAID ==
[~2017-11-17] VITALS: Ht 154.9 cm; Wt 71.4 kg
[2017-11-17] VITALS (7 sets, daily range): BP systolic 89–111; BP diastolic 50–62
[~2017-11-17 18:06] MED LIST changes: +CALC500T7 PO
[2017-11-17 18:56] LABS: BASOPHILS % (AUTO) 0 % (0-10); EOSINOPHILS # (AUTO) 0.1 10^3/uL (0.0-0.3); EOSINOPHILS % (AUTO) 1 % (0-10); HEMATOCRIT 32 % (35-52); HEMOGLOBIN 10.8 G/DL (11.5-16.0); LYMPHOCYTES # (AUTO) 1.8 X 10^3 (1.0-4.0); LYMPHOCYTES % (AUTO) 13 % (12-44); MEAN CORPUSCULAR HEMOGLOBIN 27 PG (25-34); MEAN CORPUSCULAR HGB CONC 34 G/DL (32-36); MEAN CORPUSCULAR VOLUME 80 FL (80-99); MEAN PLATELET VOLUME 12.5 FL (7.4-10.4); MONOCYTES # (AUTO) 0.9 X 10^3 (0.0-1.0); MONOCYTES % (AUTO) 7 % (0-12); NEUTROPHILS # (AUTO) 10.4 X 10^3 (1.8-7.8); NEUTROPHILS % (AUTO) 79 % (42-75); PLATELET COUNT 134 10^3/uL (130-400); RED BLOOD COUNT 4.02 10^6/uL (4.35-5.85); RED CELL DISTRIBUTION WIDTH 14.6 % (10.0-14.5); WHITE BLOOD COUNT 13.1 10^3/uL (4.3-11.0)
[2017-11-17] MEDS: D5 LR IV SOLUTION 1,000 ML IV SCH ×2 (18:56→21:57)
[2017-11-17] MEDS ORDERED: INFLUENZA TRIvalent 2017-2018 0.5 ML/45 MCG SYR IM ONE (20:15)
[2017-11-17] MEDS ORDERED: OXYTOCIN/NORMAL SALINE 500 ML IV ONE (20:59)
--- NOTE | 2017-11-17 21:25 | OB Labor & Delivery Record ---
L&D History Date of Service Date of Service: Nov 17, 2017 History Expected Date of Delivery: Dec 05, 2017 Gestational Age in Weeks: 37 Hx : 3 Hx Para: 2 Complications Events: Routine care Operative Indications (Cesarea: N/A-Vaginal Delivery Intrapartal Events: None L&D Stage1 Stage One Onset of Labor - Date: Nov 17, 2017 Monitors and Tracing Monitor Mode: External Heart Rate: 150 Station: -2 Vital Signs VS - Last 72 Hours, by Label 11/17/17 11/17/17 11/17/17 11/17/17 18:15 19:20 19:37 19:47 Temp 99.1 Pulse 91 79 95 Resp 18 18 18 B/P (MAP) 105/62 (76) 97/55 (69) 100/55 (70) O2 Delivery Room Air Room Air Room Air L&D Stage2 Stage Two Stage II Date: Nov 17, 2017 Monitors and Tracing Monitor Mode: External Heart Rate: 150 Monitor Accelerations: Uniform Monitor Decelerations: None Intermediate Variability: Average (6-10) Short Term Variability: Present Position: Right Occiput Anterior Presentation: Vertex Cord Descript/Complications Cord Vessel Description: 3 Vessels Delivery Type Infant Delivery Method: Spontaneous Vaginal Episiotomy/Perineal Laceration Laceraction(s)/Extensions: No Condition of Infant Delivery 1 minute Comment: 8 5 minute Comment: 9 Notes Live female infant weight 6lbs 9oz Condition of Condition of : Living Exam: No Observed Abnormalities Resuscitation Resuscitation: N/A - Spontaneous Resp L&D Stage3 Stage Three Stage III Date: Nov 17, 2017 Pictocin Pitocin Administration Comment: 30 mu wide open at delivery of placenta Placenta Delivery Placenta Delivery: Spontaneous Delivery Summary Summary Estimated blood loss (mL): 300 Attending at delivery: Josué Campos DO Condition of Delivery Examined: Cervix Examined, Uterus Explored Condition of Mother stable Condition of (s) stable JOSUÉ CAMPOS DO Nov 17, 2017 21:25
[2017-11-17] MEDS ORDERED: DIBUCAINE (NUPERCAINAL) 1% OINT 30 GM TOP PRN (21:30)
[2017-11-17] MEDS ORDERED: MEASLES,MUMPS,RUBELLA 1 EA INJ SQ ONE (21:30)
[2017-11-17] MEDS ORDERED: HYDROcodone/APAP 7.5MG-325 MG/15 ML (LORTAB) UDC PO PRN (21:30)
[2017-11-17] MEDS ORDERED: TETANUS,DIPTH,PERTUSS P/F (BOOSTRIX) 0.5 ML VIAL IM ONE (21:30)
[2017-11-17] MEDS ORDERED: HYDROcodone/APAP 5 MG/325 MG (LORTAB) TAB PO PRN (21:30)
[2017-11-17] MEDS ORDERED: IBUPROFEN 600 MG (MOTRIN) TAB PO SCH (21:30)
[2017-11-17] MEDS ORDERED: BENZOCAINE/MENTHOL (DERMOPLAST) 56 ML CAN TP PRN (21:30)
[2017-11-17] MEDS ORDERED: WITCH HAZEL(TUCKS) 40 EA JAR TOP PRN (21:30)
--- NOTE | 2017-11-17 21:31 | History & Physical-OB ---
OB - Chief Complaint & HPI Date/Time Date of Admission: Date of Admission: 11/17/2017 Time Seen by Provider: 20:45 Chief Complaint/History OB-Reason for Admission/Chief: Onset of Labor Hx : 3 Hx Para: 2 Expected Date of Delivery: Dec 05, 2017 Gestational Age in Weeks: 37 Gestational Age in Days: 3 Admission Nurse Assessment Rev: Yes History of Labs O neg Antibody neg RI RPR NR HBsAg NR HIV NR GC neg GBS neg Allergies and Home Medications Allergies Coded Allergies: nitrofurantoin (Unverified Allergy, Unknown, 11/14/17) throat swelling Home Medications Calcium Carbonate 200 Mg Tab.chew, 200 MG PO PRN, (Reported) [id number]/FA/Omega3/Dha/Fish Oil 1 Each Tab.chew, 1 EACH PO DAILY, (Reported) Patient Home Medication List Home Medication List Reviewed: Yes OB - History Hx of Present Care: Yes Ultrasounds: Normal mid trimester US Obstetrical Complications: None Medical Complications: None Obstetrical History Hx : 3 Hx Para: 2 Hx Termination: No Hx Multiple Gestation: No Hx Stillbirth: No Hx Complication: No Hx Induced Hypertens: No Hx Maternal Gestational Diabet: No Delivery History Hx Dystocia: No Hx Large For Gestational Age I: No Hx Small for Gestational Age I: No Hx Section: No Hx Vaginal Delivery Post C-Sec: No Hx Blood Disorders: No Adverse Rxn to Tranfusion: No Patient Past Medical History none Social History/Family History HIV/AIDS: No Recent Infectious Disease Expo: No Sexually Transmitted Disease: No Alcohol Use: Denies Use Recreational Drug Use: No 2nd Hand Smoke Exposure: No Immunizations Hepatitis A: No Hepatitis B: No Tetanus Booster (TDap): Less than 5yrs OB - Admission Exam Physical Exam Vitals: Vital Signs 11/17/17 11/17/17 19:37 19:47 Temp 99.1 Pulse 95 Resp 18 B/P (MAP) 100/55 (70) O2 Delivery Room Air HEENT: NCAT Heart: Rhythm Normal Lungs: Clear Abdomen: Gravid Extremities: Normal Reflexes: Normal Cervical Dilatation: 6cm Effacement: 100% Station: -1 Membranes: Intact Heart Rate: 130's Accelerations: Accelerations Present Decelerations: No Decelerations Short Term Variability: Present Psychiatric Technician Variability: Average (6-25) Contractions on Admission: < 5 Minutes Apart Intensity: Firm Labs Laboratory Tests Test 11/17/17 18:40 Range/Units White Blood Count 13.1 H 4.3-11.0 10^3/uL Red Blood Count 4.02 L 4.35-5.85 10^6/uL Hemoglobin 10.8 L 11.5-16.0 G/DL Hematocrit 32 L 35-52 % Mean Corpuscular Volume 80 80-99 FL Mean Corpuscular Hemoglobin 27 25-34 PG Mean Corpuscular Hemoglobin Concent 34 32-36 G/DL Red Cell Distribution Width 14.6 H 10.0-14.5 % Platelet Count 134 130-400 10^3/uL Mean Platelet Volume 12.5 H 7.4-10.4 FL Neutrophils (%) (Auto) 79 H 42-75 % Lymphocytes (%) (Auto) 13 12-44 % Monocytes (%) (Auto) 7 0-12 % Eosinophils (%) (Auto) 1 0-10 % Basophils (%) (Auto) 0 0-10 % Neutrophils # (Auto) 10.4 H 1.8-7.8 X 10^3 Lymphocytes # (Auto) 1.8 1.0-4.0 X 10^3 Monocytes # (Auto) 0.9 0.0-1.0 X 10^3 Eosinophils # (Auto) 0.1 0.0-0.3 10^3/uL Basophils # (Auto) 0.0 0.0-0.1 10^3/uL OB - Assessment/Plan/Diagnosis Assessment Assessment: active labor Admission Dx Term 37 weeks Active labor GBS neg Admission Status: Inpatient Order (span 2 midnights) Reason for Inpatient Admission: Term 37 weeks Active labor GBS neg Plan Plan: Expectant Management Discharge Diagnosis Diagnosis: Term 37 weeks Active labor GBS neg BETHJOSUÉ Nita DO Nov 17, 2017 21:31
--- NOTE | 2017-11-17 21:32 | Discharge Inst-Women's Service ---
Discharge Inst-Women's Serv Depart Medication/Instructions New, Converted or Re-Newed RX: RX on Chart Consults/Follow Up Additional Follow Up: Yes Orders/Referrals Dr. Campos in 6 weeks Activity Activity: Activity as Tolerated Driving Instructions: No Driving for 1 Week NO SMOKING: NO SMOKING Nothing Inside Vagina: No Douching, No [place], No Tampons Diet Discharge Diet: No Restrictions Symptoms to Report to : Bleeding Excessive, Pain Increased, Fever Over 101 Degrees F, Vaginal Bleeding Increase, Questions/Concerns For Any Problems or Questions: Contact Your Physician Skin/Wound Care Bathing Instructions: Shower (x 2 weeks or sitz baths) JOSUÉ CAMPOS DO Nov 17, 2017 21:32
[2017-11-17] MEDS ORDERED: IBUP100O27 PO (21:35)
[2017-11-17] MEDS ORDERED: HYDR15SO8 PO (21:35)
[2017-11-17] MEDS ORDERED: FESO45ML PO (21:35)
[2017-11-17] MEDS: OXYTOCIN/NORMAL SALINE 500 ML IV SCH ×2 (21:56→21:57)
--- OUTSIDE RECORDS SUMMARY | 2017-11-17 21:59 | XMS REPORT | Continuity of Care Document ---
Author Author [facility] Organization [facility] Address Unknown Phone Unavailable Allergies Active Description Code Type Severity Reaction Onset Reported/Identified Relationship to Patient Clinical Status Yes No Known Drug Allergies [id number] Drug Allergy Unknown N/A 01/17/2011 Yes nitrofurantoin [id number] Drug Allergy Unknown N/A 09/06/2014 Medications There [...] ACUTE MAXILLARY SINUSITIS, UNSPECIFIED 04/04/2016 GRICEL DOMINGUEZ MANAGER LIFE Ot R51 HEADACHE 04/04/2016 GRICEL DOMINGUEZ APRN Ot J01.00 ACUTE MAXILLARY SINUSITIS, UNSPECIFIED 04/04/2016 GRICEL DOMINGUEZ MANAGER LIFE Ot R51 HEADACHE 11/26/2016 MARIE MCCALL Ot [...] FOR SCREENING FOR UN 07/30/2017 JOSUÉ CAMPOS DO Ot Z3A.19 19 WEEKS GESTATION OF 08/06/2017 KANWAL VANG, VALERY Cristina Ot O47.02 FALSE LABOR BEFORE 37 COMPLETED WEEKS OF 08/06/2017 VALERY SCHOFIELD MD Ot Z3A.22 22 WEEKS GESTATION OF 08/07/2017 BLAINE HUNTER DO D Ot R11.2 NAUSEA WITH VOMITING, UNSPECIFIED 08/07/2017 BETH CONDE, JOSUÉ Moya Ot Z36.87 ENCOUNTER FOR SCREENING FOR UN 08/07/2017 GEOFFREYECH DO, JOSUÉ S Ot Z3A.19 19 WEEKS GESTATION OF 09/18/2017 BLAINE HUNTER DO D Ot R11.2 NAUSEA WITH VOMITING, UNSPECIFIED 09/18/2017 GEOFFREYECH , JOSUÉ S Ot Z36.87 ENCOUNTER FOR SCREENING FOR UN 09/18/2017 GEOFFREYECH DO, JOSUÉ S Ot Z3A.19 19 WEEKS GESTATION OF 09/18/2017 LI CONDEMARY ALICE Ot J10.1 FLU DUE TO OTH IDENT INFLUENZA VIRUS W O 09/18/2017 LI CONDERAFA Marlene Ot 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, THIRD 09/18/2017 LI MARY ALICE K Ot O99.513 DISEASES OF THE RESP SYS COMP , 09/18/2017 LI DOMARY ALICE Ot Z3A.28 28 WEEKS GESTATION OF 09/18/2017 LI DOMARY ALICE Ot Z87.19 PERSONAL HISTORY OF OTHER DISEASES OF TH 09/18/2017 BLAINE HUNTER DO D Ot R11.2 NAUSEA WITH VOMITING, UNSPECIFIED 09/18/2017 BETH CONDE JOSUÉ Moya Ot Z36.87 ENCOUNTER FOR SCREENING FOR UN 09/18/2017 GEOFFREYECH DO, JOSUÉ S Ot Z3A.19 19 WEEKS GESTATION OF 09/22/2017 LI CONDEMARY ALICE Ot J10.1 FLU DUE TO OTH IDENT INFLUENZA VIRUS W O 09/22/2017 LI DOMARY ALICE Ot 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, THIRD 09/22/2017 LI RAFA K Ot O99.513 DISEASES OF THE RESP SYS COMP , 09/22/2017 LI CONDEMARY ALICE Ot Z3A.28 28 WEEKS GESTATION OF 09/22/2017 MARY ALICE JEFFERSON DO Ot Z87.19 PERSONAL HISTORY OF OTHER DISEASES OF TH 10/29/2017 BLAINE HUNTER DO Ot R11.2 NAUSEA WITH VOMITING, UNSPECIFIED 10/29/2017 JOSUÉ CAMPOS DO Ot Z36.87 ENCOUNTER FOR SCREENING FOR UN 10/29/2017 JOSUÉ CAMPOS DO Ot Z3A.19 19 WEEKS GESTATION OF 10/30/2017 JOSUÉ CAMPOS DO Ot Z36.87 ENCOUNTER FOR SCREENING FOR UN 10/30/2017 JOSUÉ CAMPOS DO Ot Z3A.19 19 WEEKS GESTATION OF 11/06/2017 GRICEL DOMIGNUEZ APRN Ot O99.89 OTH DISEASES AND CONDITIONS COMPL PREG/C 11/06/2017 GRICEL DOMINGUEZ APRN Ot R42 DIZZINESS AND GIDDINESS 11/06/2017 GRICEL DOMINGUEZ APRN Ot R51 HEADACHE 11/06/2017 GRICEL DOMINGUEZ APRN Ot Z3A.14 14 WEEKS GESTATION OF 11/07/2017 JOSUÉ CAMPOS DO Ot Z36.87 ENCOUNTER FOR SCREENING FOR UN 11/07/2017 JOSUÉ CAMPOS DO Ot Z3A.19 19 WEEKS [...] Complete urinalysis with reflex to culture NO [facility] Comprehensive metabolic panel - 06/11/17 21:58 Serum [...] automated white blood cell (WBC) differential - 09/18/17 10:15 Blood leukocytes automated count (number/volume) 7.7 10*3/uL 4.3-11.0 Blood erythrocytes automated count (number/volume) 3.74 10*6/uL 4.35-5.85 Venous blood hemoglobin measurement (mass/volume) 10.9 g/dL 11.5-16.0 Blood hematocrit (volume fraction) 32 % 35-52 Automated erythrocyte mean corpuscular volume 86 [foz_us] 80-99 Automated erythrocyte mean corpuscular hemoglobin (mass per erythrocyte) 29 pg 25-34 Automated erythrocyte mean corpuscular hemoglobin concentration measurement ( mass/volume) 34 g/dL 32-36 Automated erythrocyte distribution width ratio 13.8 % 10.0-14.5 Automated blood platelet count (count/volume) 133 10*3/uL 130-400 Automated blood platelet mean volume measurement 12.6 [foz_us] 7.4-10.4 Automated blood neutrophils/100 leukocytes 90 % 42-75 Automated blood lymphocytes/100 leukocytes 4 % 12-44 Blood monocytes/100 leukocytes 5 % 0-12 Automated blood eosinophils/100 leukocytes 0 % 0-10 Automated blood basophils/100 leukocytes 0 % 0-10 Blood neutrophils automated count (number/volume) 7.0 10*3 1.8-7.8 Blood lymphocytes automated count (number/volume) 0.3 10*3 1.0-4.0 Blood monocytes automated count (number/volume) 0.4 10*3 0.0-1.0 Automated eosinophil count 0.0 10*3/uL 0.0-0.3 Automated blood basophil count (count/volume) 0.0 10*3/uL 0.0-0.1 Influenza virus A and B antigen detection - 09/18/17 10:15 CALL POSITIVES (F1 HELP) CALLED TO DR. JEFFERSON AT 1054 [facility] FLU RESULT POSITIVE FOR INFLUENZA A ANTIGEN, NEG FOR B ANTIGEN, BY [facility] Comprehensive metabolic panel - 09/18/17 10:15 Serum or plasma sodium measurement (moles/volume) 136 mmol/L 135-145 Serum or plasma potassium measurement (moles/volume) 3.1 mmol/L 3.6-5.0 Serum or plasma chloride measurement (moles/volume) 104 mmol/L 98-107 Carbon dioxide 20 mmol/L 21-32 Serum or plasma anion gap determination (moles/volume) 12 mmol/L 5-14 Serum or plasma urea nitrogen measurement (mass/volume) 4 mg/dL 7-18 Serum or plasma creatinine measurement (mass/volume) 0.69 mg/dL 0.60-1.30 Serum or plasma urea nitrogen/creatinine mass ratio 6 NRG Serum or plasma creatinine measurement with calculation of estimated glomerular filtration rate > NRG Serum or plasma glucose measurement (mass/volume) 89 mg/dL 70-105 Serum or plasma calcium measurement (mass/volume) 8.4 mg/dL 8.5-10.1 Serum or plasma total bilirubin measurement (mass/volume) 0.8 mg/dL 0.1-1.0 Serum or plasma alkaline phosphatase measurement (enzymatic activity/volume) 91 U/L 40-136 Serum or plasma aspartate aminotransferase measurement (enzymatic activity/ volume) 26 U/L 5-34 Serum or plasma alanine aminotransferase measurement (enzymatic activity/volume ) 22 U/L 0-55 Serum or plasma protein measurement (mass/volume) 7.1 g/dL 6.4-8.2 Serum or plasma albumin measurement (mass/volume) 3.5 g/dL 3.2-4.5 Blood manual differential performed detection - 09/18/17 10:15 Blood monocytes/100 leukocytes 2 % NRG Manual blood segmented neutrophils/100 leukocytes 91 % NRG Blood band neutrophils/100 leukocytes 2 % NRG Manual blood lymphocytes/100 leukocytes 5 % NRG Manual eosinophils/100 leukocytes in nose 0 % NRG Manual blood basophils/100 leukocytes 0 % NRG Blood erythrocyte morphology finding identification NORMAL NRG Blood lactic acid measurement (moles/volume) - 09/18/17 11:14 Blood lactic acid measurement (moles/volume) 0.96 mmol/L 0.50-2.00 Bacterial blood culture - 09/18/17 11:14 Bacterial blood culture NG NRG Bacterial blood culture - 09/18/17 11:22 Bacterial blood culture NG NRG Complete urinalysis with reflex to culture - 09/18/17 12:00 Urine color determination YELLOW NRG Urine clarity determination SLIGHTLY CLOUDY NRG Urine pH measurement by test strip 5 5-9 Specific gravity of urine by test strip 1.010 1.016- 1.022 Urine protein assay by test strip, semi-quantitative NEGATIVE NEGATIVE Urine glucose detection by automated test strip NEGATIVE NEGATIVE Erythrocytes detection in urine sediment by light microscopy NEGATIVE NEGATIVE Urine ketones detection by automated test strip 4+ NEGATIVE Urine nitrite detection by test strip NEGATIVE NEGATIVE Urine total bilirubin detection by test strip NEGATIVE NEGATIVE Urine urobilinogen measurement by automated test strip (mass/volume) NORMAL NORMAL Urine leukocyte esterase detection by dipstick 3+ NEGATIVE Automated urine sediment erythrocyte count by microscopy (number/high power field) NONE NRG Automated urine sediment leukocyte count by microscopy (number/high power field ) [HPF] NRG Bacteria detection in urine sediment by light microscopy MODERATE NRG Squamous epithelial cells detection in urine sediment by light microscopy 10-25 NRG Crystals detection in urine sediment by light microscopy NONE NRG Casts detection in urine sediment by light microscopy NONE NRG Mucus detection in urine sediment by light microscopy NEGATIVE NRG Complete urinalysis with reflex to culture YES NRG Bacterial urine culture - 09/18/17 12:00 Bacterial urine culture [id number] NRG COLONY COUNT <10,000 NRG FTX;REPORTABLE SENSITIVITY REPORTED 09/20 10:20 NRG FREE TEXT ENTRY 3 MIXED GRAM POSITIVE FELISHA 10-100,000/ML NRG Bacterial susceptibility panel - 09/18/17 12:00 Gentamicin susceptibility test by minimum inhibitory concentration S NRG Vancomycin susceptibility test by minimum inhibitory concentration 1 NRG Levofloxacin susceptibility test by minimum inhibitory concentration 0.5 NRG Tetracycline susceptibility test by minimum inhibitory concentration <= NRG Ampicillin susceptibility test by minimum inhibitory concentration < = NRG Nitrofurantoin susceptibility test by minimum inhibitory concentration <= NRG Linezolid susceptibility test by minimum inhibitory concentration 2 NRG Encounters ACCT No. Visit Date/Time Discharge Status Pt. Type Provider Facility Loc./Unit Complaint [id number] 09/18/2017 09:51:00 09/18/2017 13:30:00 DIS Emergency LI MARY ALICE CONDE K [facility] ER FLU SYMPTOMS,28WEEKS PREG [id number] 08/06/2017 18:55:00 08/06/2017 19:35:00 DIS Outpatient VALERY SCHOFIELD MD [facility] WSo POSSIBLE CONTRACTIONS [id number] 07/14/2017 15:12:00 07/14/2017 23:59:59 CLS Outpatient BETH JOSUÉ [facility] RAD Z33.1 [id number] 06/11/2017 21:34:00 06/11/2017 23:26:00 DIS Outpatient GRICEL DOMINGUEZ APRN [facility] ER 14W5D PREG,HEADACHE/ DIZZINESS [id number] 01/21/2017 15:54:00 01/21/2017 17:52:00 DIS Emergency GRICEL DOMINGUEZ APRN [facility] ER LIGHT HEADED/DIZZY/SHAKEY [id number] 11/26/2016 21:41:00 11/26/2016 22:59:00 DIS Emergency MARIE MCCALL [facility] ER UPPER BACK PAIN [id number] 04/03/2016 13:58:00 04/03/2016 14:10:00 DIS Emergency GRICEL DOMINGUEZ APRN [facility] ER EARACHE HEADACHE CONGESTION [id number] 08/16/2015 08:45:00 08/16/2015 23:59:59 CLS Outpatient HUNTERBLAINE VELASQUEZ DO [facility] RAD N/V [id number] 03/28/2015 12:24:00 03/28/2015 16:34:00 DIS Emergency MARIE MCCALL [facility] ER ABD/LOW BACK PAIN SPOTTING FEVER [id number] 01/20/2015 11:17:00 01/20/2015 11:41:00 DIS Emergency GRICEL DOMINGUEZ APRN [facility] ER TOOTHACHE [id number] 10/12/2014 13:09:00 10/12/2014 15:40:00 DIS Outpatient JOSUÉ CAMPOS DO [facility] WSo CONTRACTIONS [id number] 09/29/2014 11:30:00 09/30/2014 10:59:00 DIS Inpatient JOSUÉ CAMPOS DO [facility] LDRP LABOR [id number] 09/24/2014 23:00:00 09/24/2014 23:35:00 DIS Emergency AIDAN MCLAIN MD [facility] ER RASH [id number] 09/07/2014 15:04:00 09/07/2014 15:22:00 DIS Outpatient JOSUÉ CAMPOS DO [facility] WSo THRT OF PRE TERM LABOR [id number] 09/06/2014 15:45:00 09/07/2014 09:30:00 DIS Inpatient JOSUÉ CAMPOS DO [facility] LDRP PRE-TERM CONTRACTIONS [id number] 07/15/2014 18:29:00 07/15/2014 19:29:00 DIS Outpatient JOSUÉ CAMPOS DO [facility] WSo ABD PAIN, DEC MOVEMENT [id number] 05/01/2014 12:53:00 05/01/2014 14:50:00 DIS Emergency LI MARY ALICE Marlene [facility] ER ABD PAIN @ 13 WEEKS [id number] 03/30/2017 20:04:00 Document Registration [id number] 10/17/2014 00:00:00 ACT Inpatient JOSUÉ CAMPOS DO [facility] LDRP CONTRACTIONS [id number] 04/09/2012 21:24:00 Document Registration [id number] 01/17/2011 16:07:00 Document Registration
[2017-11-17] MEDS ORDERED: CATHETER FLUSH 10 ML SYR IV SCH (22:00)
[2017-11-17] MEDS: IBUPROFEN SUSP 100MG/5ML (MOTRIN) UDC PO PRN (22:11)
[2017-11-18 03:12] VITALS: BP 96/62
[2017-11-18] MEDS: IBUPROFEN SUSP 100MG/5ML (MOTRIN) UDC PO PRN ×3 (04:17→20:29)
[2017-11-18 06:09] LABS: BASOPHILS % (AUTO) 0 % (0-10); EOSINOPHILS % (AUTO) 0 % (0-10); HEMATOCRIT 30 % (35-52); HEMOGLOBIN 9.8 G/DL (11.5-16.0); LYMPHOCYTES # (AUTO) 1.6 X 10^3 (1.0-4.0); LYMPHOCYTES % (AUTO) 9 % (12-44); MEAN CORPUSCULAR HEMOGLOBIN 27 PG (25-34); MEAN CORPUSCULAR HGB CONC 33 G/DL (32-36); MEAN CORPUSCULAR VOLUME 81 FL (80-99); MONOCYTES % (AUTO) 6 % (0-12); NEUTROPHILS # (AUTO) 14.6 X 10^3 (1.8-7.8); NEUTROPHILS % (AUTO) 85 % (42-75); PLATELET COUNT 136 10^3/uL (130-400); RED BLOOD COUNT 3.66 10^6/uL (4.35-5.85); RED CELL DISTRIBUTION WIDTH 14.5 % (10.0-14.5); WHITE BLOOD COUNT 17.3 10^3/uL (4.3-11.0)
[2017-11-18 08:00] VITALS: BP 90/55
--- NOTE | 2017-11-18 08:21 | Postpartum Progress Note ---
Note Note Day # 1 Subjective: Patient is without complaints. Ambulating, voiding. Tolerating a regular diet without nausea or vomiting. Normal lochia. Pain is well controlled with oral pain medications. bottle feeding Objective: Vital Sign - Last 24 Hours 11/17/17 11/17/17 11/17/17 11/17/17 18:15 19:20 19:37 19:47 Temp 99.1 Pulse 91 79 95 Resp 18 18 18 B/P (MAP) 105/62 (76) 97/55 (69) 100/55 (70) O2 Delivery Room Air Room Air Room Air 11/17/17 11/17/17 11/17/17 11/17/17 20:14 20:44 21:15 23:15 Temp 98.4 97.4 Pulse 99 88 88 79 Resp 20 20 20 16 B/P (MAP) 89/50 (63) 102/52 (69) 111/58 (75) 98/58 (71) O2 Delivery Room Air Room Air Room Air Room Air 11/18/17 03:12 Temp 97.7 Pulse 63 Resp 16 B/P (MAP) 96/62 (73) Pulse Ox 99 O2 Delivery Room Air Intake and Output 11/17/17 11/17/17 11/18/17 15:00 23:00 07:00 Intake Total 1000 ml Balance 1000 ml Physical Exam: General - Alert and oriented, no apparent distress Abdomen - Soft, appropriately tender to palpation, non-distended, fundus firm at umbilicus Extremities - no edema, negative Lupis's bilaterally Assessment: PPD 1 NVD Acute blood loss anemia superimposed on anemia of Plan: Routine care. Encourage breast feeding. Encourage ambulation. Ferrous sulfate supplementation. Plan for discharge tomorrow Vitals - Labs Vital Signs - I&O Vital Signs Date Time Temp Pulse Resp B/P (MAP) Pulse Ox O2 Delivery O2 Flow Rate FiO2 11/18/17 03:12 97.7 63 16 96/62 (73) 99 Room Air 11/17/17 23:15 97.4 79 16 98/58 (71) Room Air 11/17/17 21:15 98.4 88 20 111/58 (75) Room Air 11/17/17 20:44 88 20 102/52 (69) Room Air 11/17/17 20:14 99 20 89/50 (63) Room Air 11/17/17 19:47 95 18 100/55 (70) Room Air 11/17/17 19:37 99.1 11/17/17 19:20 79 18 97/55 (69) Room Air 11/17/17 18:15 91 18 105/62 (76) Room Air I & O 11/18/17 07:00 Intake Total 1000 ml Balance 1000 ml Labs Laboratory Tests 11/17/17 18:40: White Blood Count 13.1H, Red Blood Count 4.02L, Hemoglobin 10.8L, Hematocrit 32L , Mean Corpuscular Volume 80, Mean Corpuscular Hemoglobin 27, Mean Corpuscular Hemoglobin Concent 34, Red Cell Distribution Width 14.6H, Platelet Count 134, Mean Platelet Volume 12.5H, Neutrophils (%) (Auto) 79H, Lymphocytes (%) (Auto) 13, Monocytes (%) (Auto) 7, Eosinophils (%) (Auto) 1, Basophils (%) (Auto) 0, Neutrophils # (Auto) 10.4H, Lymphocytes # (Auto) 1.8, Monocytes # (Auto) 0.9, Eosinophils # (Auto) 0.1, Basophils # (Auto) 0.0 11/18/17 05:30: White Blood Count 17.3H, Red Blood Count 3.66L, Hemoglobin 9.8L, Hematocrit 30L , Mean Corpuscular Volume 81, Mean Corpuscular Hemoglobin 27, Mean Corpuscular Hemoglobin Concent 33, Red Cell Distribution Width 14.5, Platelet Count 136, Mean Platelet Volume , Neutrophils (%) (Auto) 85H, Lymphocytes (%) (Auto) 9L, Monocytes (%) (Auto) 6, Eosinophils (%) (Auto) 0, Basophils (%) (Auto) 0, Neutrophils # (Auto) 14.6H, Lymphocytes # (Auto) 1.6, Monocytes # (Auto) 1.0, Eosinophils # (Auto) 0.0, Basophils # (Auto) 0.0 JOSUÉ CAMPOS DO Nov 18, 2017 8:21 am
[2017-11-18] MEDS ORDERED: FERROUS SULF 325 MG (IRON) TAB PO SCH (09:00)
[2017-11-18] MEDS: DOCUSATE SODIUM 100 MG (COLACE) CAP PO SCH ×2 (09:18→20:42)
[2017-11-18] MEDS: PRENATAL VITAMIN 1 EA TAB PO SCH (09:28)
[2017-11-18] MEDS: FERROUS SULFATE ORAL SOLN 8.8 MG/ML 1 ML PO SCH ×2 (09:28→17:51)
[2017-11-18 12:00] VITALS: BP 93/58
[2017-11-18 16:00] VITALS: BP 91/48
[2017-11-18 20:29] VITALS: BP 95/56
[2017-11-19 02:37] VITALS: BP 92/59
[2017-11-19] MEDS: IBUPROFEN SUSP 100MG/5ML (MOTRIN) UDC PO PRN ×2 (02:37→09:09)
--- NOTE | 2017-11-19 08:34 | Postpartum Progress Note ---
Note Note Day # 2 Subjective: Patient is without complaints. Ambulating, voiding. Tolerating a regular diet without nausea or vomiting. Normal lochia. Pain is well controlled with oral pain medications. [] feeding. [] Objective: Vital Signs 11/19/17 02:37 Temp 96.7 Pulse 54 Resp 16 B/P (MAP) 92/59 (70) Pulse Ox 99 O2 Delivery Room Air Physical Exam: General - Alert and oriented, no apparent distress Abdomen - Soft, appropriately tender to palpation, non-distended, fundus firm at umbilicus Extremities - no edema, negative Lupis's bilaterally Assessment: PPD 2 NVD Plan: Routine care. Encourage breast feeding. Encourage ambulation. Ferrous sulfate supplementation. Plan for discharge today Vitals - Labs Vital Signs - I&O Vital Signs Date Time Temp Pulse Resp B/P (MAP) Pulse Ox O2 Delivery O2 Flow Rate FiO2 11/19/17 02:37 96.7 54 16 92/59 (70) 99 Room Air 11/18/17 20:29 96.7 80 16 95/56 (69) 100 Room Air 11/18/17 16:00 96.7 64 16 91/48 (62) 99 Room Air 11/18/17 12:00 96.2 68 16 93/58 (70) 99 Room Air JOSUÉ CAMPOS DO Nov 19, 2017 8:34 am
[2017-11-19 09:07] VITALS: BP 103/66
[2017-11-19] MEDS: PRENATAL VITAMIN 1 EA TAB PO SCH (09:09)
[2017-11-19] MEDS: FERROUS SULFATE ORAL SOLN 8.8 MG/ML 1 ML PO SCH (09:09)
[2017-11-19] MEDS: DOCUSATE SODIUM 100 MG (COLACE) CAP PO SCH (09:10)
== END 2017-11-19 12:30 | disposition home or self-care (01) | DRG 775 ==
LOC: WSo 18:06 → LDRP 18:06 → WSo 18:21 → LDRP 22:55
PROVIDERS: ADMIT Obstetrics & Gynecology; ATTEND Obstetrics & Gynecology
PROC: 10E0XZZ Delivery of Products of Conception, External Approach (ICD-10-PCS; principal; 2017-11-17)
DX: O99.013 Anemia complicating pregnancy, third trimester (principal); O99.03 Anemia complicating the puerperium; D64.9 Anemia, unspecified; Z3A.37 37 weeks gestation of pregnancy; Z37.0 Single live birth
CPT/HCPCS: 36415; 85025; 86850; 86900; 86901; 99212

== ENCOUNTER 2018-02-10 10:03 | Emergency (ER) | payer MEDICAID ==
[~2018-02-10] VITALS: Ht 154.9 cm; Wt 72.6 kg
[~2018-02-10 10:03] MED LIST changes: +FESO45ML PO; +HYDR15SO8 PO; +IBUP100O28 PO
--- OUTSIDE RECORDS SUMMARY | 2018-02-10 10:10 | XMS REPORT | Continuity of Care Document ---
Author Author [facility] Organization [facility] Address Unknown Phone Unavailable Allergies Active Description Code Type Severity Reaction Onset Reported/Identified Relationship to Patient Clinical Status Yes No Known Drug Allergies [id number] Drug Allergy Unknown N/A 01/17/2011 Yes nitrofurantoin [id number] Drug Allergy Unknown N/A 11/14/2017 Medications There is no data. Problems Date [...] ACUTE MAXILLARY SINUSITIS, UNSPECIFIED 04/04/2016 GRICEL DOMINGUEZ REVENUE MANAGER Ot R51 HEADACHE 04/04/2016 GRICEL DOMINGUEZ APRN Ot J01.00 ACUTE MAXILLARY SINUSITIS, UNSPECIFIED 04/04/2016 GRICEL DOMINGUEZ REVENUE MANAGER Ot R51 HEADACHE 11/26/2016 MARIE MCCALL Ot [...] WITH VOMITING, UNSPECIFIED 10/29/2017 JOSUÉ CAMPOS DO S Ot Z36.87 ENCOUNTER FOR SCREENING FOR UN 10/29/2017 JOSUÉ CAMPOS DO S Ot Z3A.19 19 WEEKS GESTATION OF 10/30/2017 JOSUÉ CAMPOS DO S Ot Z36.87 ENCOUNTER FOR SCREENING FOR UN 10/30/2017 JOSUÉ CAMPOS DO S Ot Z3A.19 19 WEEKS GESTATION OF 11/06/2017 GRICEL DOMINGUEZ APRN Ot O99.89 OTH DISEASES AND CONDITIONS COMPL PREG/C 11/06/2017 GRICEL DOMINGUEZ APRN Ot R42 DIZZINESS AND GIDDINESS 11/06/2017 GRICEL DOMINGUEZ APRN Ot R51 HEADACHE 11/06/2017 GRICEL DOMINGUEZ APRN Ot Z3A.14 14 WEEKS GESTATION OF 11/07/2017 JOSUÉ CAMPOS DO S Ot Z36.87 ENCOUNTER FOR SCREENING FOR UN 11/07/2017 JOSUÉ CAMPOS DO S Ot Z3A.19 19 WEEKS GESTATION OF 11/14/2017 VALERY SCHOFIELD MD, Ot O62.0 PRIMARY INADEQUATE CONTRACTIONS 11/14/2017 VALERY SCHOFIELD MD, Ot Z3A.36 36 WEEKS GESTATION OF 11/18/2017 VALERY SCHOFIELD MD, Ot O62.0 PRIMARY INADEQUATE CONTRACTIONS 11/18/2017 VALERY SCHOFIELD MD, Ot Z3A.36 36 WEEKS GESTATION OF 11/19/2017 JOSUÉ CAMPOS DO S Ot D64.9 ANEMIA, UNSPECIFIED 11/19/2017 BETH CONDE, JOSUÉ S Ot O99.013 ANEMIA COMPLICATING , THIRD TRI 11/19/2017 BETH CONDE, JOSUÉ S Ot O99.03 ANEMIA COMPLICATING THE PUERPERIUM 11/19/2017 BETH CONDE JOSUÉ S Ot Z37.0 SINGLE LIVE 11/19/2017 BETH CONDE JOSUÉ S Ot Z3A.37 37 WEEKS GESTATION OF 11/20/2017 VALERY SCHOFIELD MD, Ot O62.0 PRIMARY INADEQUATE CONTRACTIONS 11/20/2017 VALERY SCHOFIELD MD, Ot Z3A.36 36 WEEKS GESTATION OF Procedures Code Description Performed By Performed On 73.6 01/18/2011 75.69 REPAIR OB LACERATION NEC 10/17/2014 [id number] DELIVERY OF PRODUCTS OF CONCEPTION, EXTE 11/17/2017 Results Test Result Range Complete urinalysis with [...] HELP) CALLED TO DR. JEFFERSON AT [address] [facility] [place] FLU RESULT POSITIVE FOR INFLUENZA A ANTIGEN, NEG FOR B ANTIGEN, BY [place] [facility] [place] Comprehensive metabolic panel - 09/18/17 10:15 [...] culture - 09/18/17 12:00 Bacterial urine culture [id number] NRG COLONY COUNT <10,000 NRG FTX;REPORTABLE SENSITIVITY [...] test by minimum inhibitory concentration 2 NRG Complete urinalysis with reflex to culture - 11/14/17 22:00 Urine color determination YELLOW NRG Urine clarity determination CLEAR NRG Urine pH measurement by test strip 6.5 5-9 Specific gravity of urine by test strip 1.015 1.016- 1.022 Urine protein assay by test strip, semi-quantitative 1+ NEGATIVE Urine glucose detection by automated test strip NEGATIVE NEGATIVE Erythrocytes detection in urine sediment by light microscopy NEGATIVE NEGATIVE Urine ketones detection by automated test strip 2+ NEGATIVE Urine nitrite detection by test strip NEGATIVE NEGATIVE Urine total bilirubin detection by test strip NEGATIVE NEGATIVE Urine urobilinogen measurement by automated test strip (mass/volume) 1 mg/dL NORMAL Urine leukocyte esterase detection by dipstick NEGATIVE NEGATIVE Automated urine sediment erythrocyte count by microscopy (number/high power field) NONE NRG Automated urine sediment leukocyte count by microscopy (number/high power field ) NONE NRG Bacteria detection in urine sediment by light microscopy NONE NRG Crystals detection in urine sediment by light microscopy NONE NRG Casts detection in urine sediment by light microscopy NONE NRG Mucus detection in urine sediment by light microscopy SMALL NRG Complete urinalysis with reflex to culture NO NRG Complete blood count (CBC) with automated white blood cell (WBC) differential - 11/17/17 18:40 Blood leukocytes automated count (number/volume) 13.1 10*3/uL 4.3-11.0 Blood erythrocytes automated count (number/volume) 4.02 10*6/uL 4.35-5.85 Venous blood hemoglobin measurement (mass/volume) 10.8 g/dL 11.5-16.0 Blood hematocrit (volume fraction) 32 % 35-52 Automated erythrocyte mean corpuscular volume 80 [foz_us] 80-99 Automated erythrocyte mean corpuscular hemoglobin (mass per erythrocyte) 27 pg 25-34 Automated erythrocyte mean corpuscular hemoglobin concentration measurement ( mass/volume) 34 g/dL 32-36 Automated erythrocyte distribution width ratio 14.6 % 10.0-14.5 Automated blood platelet count (count/volume) 134 10*3/uL 130-400 Automated blood platelet mean volume measurement 12.5 [foz_us] 7.4-10.4 Automated blood neutrophils/100 leukocytes 79 % 42-75 Automated blood lymphocytes/100 leukocytes 13 % 12-44 Blood monocytes/100 leukocytes 7 % 0-12 Automated blood eosinophils/100 leukocytes 1 % 0-10 Automated blood basophils/100 leukocytes 0 % 0-10 Blood neutrophils automated count (number/volume) 10.4 10*3 1.8-7.8 Blood lymphocytes automated count (number/volume) 1.8 10*3 1.0-4.0 Blood monocytes automated count (number/volume) 0.9 10*3 0.0-1.0 Automated eosinophil count 0.1 10*3/uL 0.0-0.3 Automated blood basophil count (count/volume) 0.0 10*3/uL 0.0-0.1 Blood type T Indirect antibody screen panel - 11/17/17 18:40 ABO+Rh group ON NRG Transfusion band number [id number] Blood group antibody screen NEGATIVE NRG Complete blood count (CBC) with automated white blood cell (WBC) differential - 11/18/17 05:30 Blood leukocytes automated count (number/volume) 17.3 10*3/uL 4.3-11.0 Blood erythrocytes automated count (number/volume) 3.66 10*6/uL 4.35-5.85 Venous blood hemoglobin measurement (mass/volume) 9.8 g/dL 11.5-16.0 Blood hematocrit (volume fraction) 30 % 35-52 Automated erythrocyte mean corpuscular volume 81 [foz_us] 80-99 Automated erythrocyte mean corpuscular hemoglobin (mass per erythrocyte) 27 pg 25-34 Automated erythrocyte mean corpuscular hemoglobin concentration measurement ( mass/volume) 33 g/dL 32-36 Automated erythrocyte distribution width ratio 14.5 % 10.0-14.5 Automated blood platelet count (count/volume) 136 10*3/uL 130-400 Automated blood platelet mean volume measurement TNP 7.4 -10.4 Automated blood neutrophils/100 leukocytes 85 % 42-75 Automated blood lymphocytes/100 leukocytes 9 % 12-44 Blood monocytes/100 leukocytes 6 % 0-12 Automated blood eosinophils/100 leukocytes 0 % 0-10 Automated blood basophils/100 leukocytes 0 % 0-10 Blood neutrophils automated count (number/volume) 14.6 10*3 1.8-7.8 Blood lymphocytes automated count (number/volume) 1.6 10*3 1.0-4.0 Blood monocytes automated count (number/volume) 1.0 10*3 0.0-1.0 Automated eosinophil count 0.0 10*3/uL 0.0-0.3 Automated blood basophil count (count/volume) 0.0 10*3/uL 0.0-0.1 Encounters ACCT No. Visit Date/Time Discharge Status Pt. Type Provider Facility Loc./Unit Complaint [id number] 11/17/2017 18:21:00 11/19/2017 12:30:00 DIS Inpatient JOSUÉ CAMPOS DO [facility] LDRP LABOR [id number] 11/14/2017 21:45:00 11/14/2017 23:34:00 DIS Outpatient VALERY SCHOFIELD MD [facility] WSo CONTRACTIONS [id number] 09/18/2017 09:51:00 09/18/2017 13:30:00 DIS Emergency LI MARY ALICE Marlene [facility] ER FLU SYMPTOMS,28WEEKS PREG [id number] 08/06/2017 18:55:00 08/06/2017 19:35:00 DIS Outpatient VALERY SCHOFIELD MD [facility] WSo POSSIBLE CONTRACTIONS [id number] 07/14/2017 15:12:00 07/14/2017 23:59:59 CLS Outpatient JOSUÉ CAMPOS DO [facility] RAD Z33.1 [id number] 06/11/2017 21:34:00 06/11/2017 23:26:00 DIS Outpatient GRICEL DOMINGUEZ APRN [facility] ER 14W5D PREG,HEADACHE/ DIZZINESS [id number] 01/21/2017 15:54:00 01/21/2017 17:52:00 DIS Emergency GRICEL DOMINGUEZ APRN [facility] ER LIGHT HEADED/DIZZY/SHAKEY [id number] 11/26/2016 21:41:00 11/26/2016 22:59:00 DIS Emergency MARIE MCCALL [facility] ER UPPER BACK PAIN [id number] 04/03/2016 13:58:00 04/03/2016 14:10:00 DIS Emergency GRICEL DOMINGUEZ APRN [facility] ER EARACHE HEADACHE CONGESTION [id number] 08/16/2015 08:45:00 08/16/2015 23:59:59 CLS Outpatient HUNTER BLAINE CONDE Merna [facility] RAD N/V [id number] 03/28/2015 12:24:00 03/28/2015 16:34:00 DIS Emergency MARIE MCCALL [facility] ER ABD/LOW BACK PAIN SPOTTING FEVER [id number] 01/20/2015 11:17:00 01/20/2015 11:41:00 DIS Emergency GRICEL DOMINGUEZ APRN [facility] ER TOOTHACHE [id number] 10/12/2014 13:09:00 10/12/2014 15:40:00 DIS Outpatient JOSUÉ CAMPOS DO [facility] WSo CONTRACTIONS [id number] 09/29/2014 11:30:00 09/30/2014 10:59:00 DIS Inpatient JOSUÉ CAMPOS DO [facility] LDRP LABOR [id number] 09/24/2014 23:00:00 09/24/2014 23:35:00 DIS Emergency AIDAN MCLAIN MD [facility] ER RASH [id number] 09/07/2014 15:04:00 09/07/2014 15:22:00 DIS Outpatient JOSUÉ CAMPOS DO [facility] WSo THRT OF PRE TERM LABOR [id number] 09/06/2014 15:45:00 09/07/2014 09:30:00 DIS Inpatient JOSUÉ CAMPOS DO [facility] LDRP PRE-TERM CONTRACTIONS [id number] 07/15/2014 18:29:00 07/15/2014 19:29:00 DIS Outpatient JOSUÉ CAMPOS DO [facility] WSo ABD PAIN, DEC MOVEMENT [id number] 05/01/2014 12:53:00 05/01/2014 14:50:00 DIS Emergency MARY ALICE JEFFERSON DO [facility] ER ABD PAIN @ 13 WEEKS [id number] 03/30/2017 20:04:00 Document Registration [id number] 10/17/2014 00:00:00 ACT Inpatient BETH CONDE JOSUÉ Moya [facility] LDRP CONTRACTIONS [id number] 04/09/2012 21:24:00 Document Registration [id number] 01/17/2011 16:07:00 Document Registration [id number] 03/28/2015 12:25:18 ACT Document Registration
[2018-02-10 10:32] LABS: BILIRUBIN,URINE NEGATIVE (NEGATIVE); CLARITY,URINE CLEAR; COLOR,URINE YELLOW; GLUCOSE, URINE (UA) NEGATIVE (NEGATIVE); KETONES,URINE NEGATIVE (NEGATIVE); LEUKOCYTE ESTERASE ,URINE NEGATIVE (NEGATIVE); NITRITE,URINE NEGATIVE (NEGATIVE); PH,URINE 8 (5-9); PROTEIN,URINE NEGATIVE (NEGATIVE); UROBILINOGEN,URINE NORMAL (NORMAL)
[2018-02-10 10:44] LABS: BACTERIA,URINE NEGATIVE /HPF; WBC,URINE RARE /HPF
--- NOTE | 2018-02-10 11:52 | ED Abdominal Pain ---
General Chief Complaint: -Female Stated Complaint: ABD PAIN Nursing Triage Note: C/O OF LOW ABD PAIN X1 WEEK NO VOMITING OR DIARRHEA. Sepsis Screen: No Definite Risk Source of Information: Patient Exam Limitations: No Limitations History of Present Illness Date Seen by Provider: Feb 10, 2018 Time Seen by Provider: 10:19 Initial Comments This 27-year-old young lady presents to the emergency room with complaints of pain in the right lower quadrant 1 week. Pain started after she jumped on a slip and slide with her children. Pain started several hours after playing with them. When she woke this morning she had an exacerbation of the pain that was very sharp in nature and worse with movement. It has gradually improved since that time. She reported her pain this morning was 8/10 and has now improved to 5/10 without any particular treatment. She is in no distress. She has not been taking any heit-god-dpetofr medications for her pain. She denies any urinary or vaginal symptoms. She has occasional discomfort with intercourse but is not relate that to her current issues in regard to timeline. She denies any history of vaginal infections and reports that she is at low risk for sexually transmitted infections. She is 3 months and has had 2 periods already. Her last menstrual period was 2 weeks ago. She denies any nausea, vomiting, constipation, diarrhea, or fever. Patient does report a history of ovarian cysts previously. Allergies and Home Medications Allergies Coded Allergies: nitrofurantoin (Unverified Allergy, Unknown, 11/14/17) throat swelling Home Medications No Active Prescriptions or Reported Meds Patient Home Medication List Home Medication List Reviewed: Yes Review of Systems Constitutional: no symptoms reported EENTM: No Symptoms Reported Respiratory: No Symptoms Reported Cardiovascular: No Symptoms Reported Gastrointestinal: See HPI, Abdominal Pain Genitourinary: No Symptoms Reported Musculoskeletal: no symptoms reported Skin: no symptoms reported Psychiatric/Neurological: No Symptoms Reported Endocrine: No Symptoms Reported Hematologic/Lymphatic: No Symptoms Reported Past Kzevkbv-Lplbjr-Fqjuiw Hx Past Med/Social Hx: Reviewed Nursing Past Med/Soc Hx Patient Social History Alcohol Use: Denies Use Recreational Drug Use: No Smoking Status: Never a Smoker 2nd Hand Smoke Exposure: No Recent Foreign Travel: No Contact w/Someone Who Travel: No Recent Infectious Disease Expo: No Recent Hopitalizations: No Immunizations Up To Date Tetanus Booster (TDap): Less than 5yrs PED Vaccines UTD: No Seasonal Allergies Seasonal Allergies: No Past Medical History Surgeries: No Respiratory: No Cardiac: No Neurological: No : No Reproductive Disorders: No Female Reproductive Disorders: Denies Sexually Transmitted Disease: No HIV/AIDS: No Genitourinary: No Gastrointestinal: Yes Gall Bladder Disease Musculoskeletal: No Endocrine: No HEENT: No Loss of Vision: Denies Hearing Impairment: Denies Cancer: No Psychosocial: No Integumentary: No Blood Disorders: No Adverse Reaction/Blood Tranf: No Family Medical History Reviewed Nursing Family Hx Patient reports no known family medical history. No Pertinent Family Hx Physical Exam Vital Signs Vital Signs - First Documented 02/10/18 10:07 Temp 97.0 Pulse 73 Resp 18 B/P (MAP) 104/58 (73) Pulse Ox 99 O2 Delivery Room Air Capillary Refill : Less Than 3 Seconds General Appearance: WD/WN, no apparent distress HEENT: normal ENT inspection Respiratory: lungs clear, normal breath sounds, no respiratory distress Cardiovascular: regular rate, rhythm, no edema, no murmur Gastrointestinal: normal bowel sounds, soft, tenderness (Mild in the RLQ) Extremities: normal inspection, no pedal edema Neurologic/Psychiatric: laundry assistant II-XII nml as tested, no motor/sensory deficits, alert, normal mood/affect, oriented x 3 Skin: normal color, warm/dry Progress/Results/Core Measures Results/Orders Lab Results Laboratory Tests Test 02/10/18 10:24 Range/Units Urine Color YELLOW Urine Clarity CLEAR Urine pH 8 5-9 Urine Specific [place] 1.015 L 1.016-1.022 Urine Protein NEGATIVE NEGATIVE Urine Glucose (UA) NEGATIVE NEGATIVE Urine Ketones NEGATIVE NEGATIVE Urine Nitrite NEGATIVE NEGATIVE Urine Bilirubin NEGATIVE NEGATIVE Urine Urobilinogen NORMAL NORMAL MG/DL Urine Leukocyte Esterase NEGATIVE NEGATIVE Urine RBC (Auto) NEGATIVE NEGATIVE Urine RBC NONE /HPF Urine WBC RARE /HPF Urine Squamous Epithelial Cells 5-10 /HPF Urine Crystals NONE /LPF Urine Bacteria NEGATIVE /HPF Urine Casts NONE /LPF Urine Mucus NEGATIVE /LPF Urine Culture Indicated NO Urine Test NEGATIVE NEGATIVE My Orders Orders - BERLIN GALLARDO MD Ua Culture If Indicated (02/10/18 10:19) Hcg,Qualitative Urine (02/10/18 11:14) Us Non Ob Transvaginal [id number] (02/10/18 11:08) Vital Signs/I&O 02/10/18 02/10/18 10:07 11:58 Temp 97.0 97.0 Pulse 73 73 Resp 18 18 B/P (MAP) 104/58 (73) 104/58 (73) Pulse Ox 99 99 O2 Delivery Room Air Blood Pressure Mean: 73 Progress Progress Note : Progress Note Ultrasound revealed not specific pathology to explain patient's pain but ruptured ovarian cyst was suspected based on the course of patient's symptoms and the small amount of free fluid in the pelvis. Pain was improving without treatment. Options discussed including further imaging vs careful observation at home. Patient elects careful observation at home. Diagnostic Imaging Diagonstic Imaging: Ultrasound Plain Films/CT/US/NM/MRI: pelvis Comments Pelvic US discussed with civil laboratory technician and report reviewed. See report below. NAME: [facility] REC#: [id number] PT STATUS: DEP ER : 1990 PHYSICIAN: BERLIN GALLARDO MD ADMIT DATE: 02/10/18/ER Signed Date of Exam: 02/10/18 US NON OB TRANSVAGINAL [id number] US NON OB TRANSVAGINAL [id number] TECHNIQUE: Transabdominal and transvaginal grayscale, color Doppler and pulse duplex imaging of the pelvis was performed. INDICATION: Pelvic pain. FINDINGS: The uterus measures 9.0 x 5.8 x 5.0 cm. The myometrium is normal in echogenicity without discrete mass. The endometrium measures up to 1.3 cm where visualized, and is normal in echogenicity. The right ovary measures 1.8 x 2.3 x 3.7 cm. The left ovary measures 4.1 x 3.2 x 2.8 cm. Both ovaries are physiologic in appearance, and in the left ovary there is a dominant anechoic cystic follicle measuring 2.6 x 1.9 x 1.8 cm. Blood flow is seen in both ovaries on color doppler imaging. No suspicious adnexal mass or fluid collection. Trace simple free pelvic fluid is likely physiologic in nature. IMPRESSION: 1. Normal ovaries without torsion. 2. Physiologic dominant follicle in the left ovary. Dictated by: Dictated on workstation # [id number] Dict: 02/10/18 1206 Trans: 02/10/18 1315 Interpreted by: MOJGAN MILLARD MD Electronically signed by: MOJGAN MILLARD MD 02/10/18 1315 Departure Impression Primary Impression: Right lower quadrant pain Disposition: 01 HOME, SELF-CARE Condition: Stable Departure-Patient Inst. Decision time for Depature: 11:50 Referrals: [facility] (PCP/Family) Primary Care Physician Patient Instructions: Acute Pelvic Pain Add. Discharge Instructions: The exact cause of your pelvic pain is uncertain at this time. I suspect it is related to muscle strain or a ruptured ovarian cyst. However, the location of your pain is also near the appendix. Please return to care if you have worsening symptoms including escalating pain, vomiting, or fevers over 100. You may take ibuprofen up to 600 mg every 6 hours as needed for pain. Add Tylenol (acetaminophen) up to 1000 mg every 6 hours as needed for additional pain relief. All discharge instructions reviewed with patient and/or family. Voiced understanding. Scripts No Active Prescriptions or Reported Meds BERLIN GALLARDO MD Feb 10, 2018 11:52
[2018-02-10 11:58] VITALS: BP 104/58
--- NOTE | 2018-02-10 12:19 | Diagnostic Imaging Report ---
US NON OB TRANSVAGINAL [id number] TECHNIQUE: Transabdominal and transvaginal grayscale, color Doppler and pulse duplex imaging of the pelvis was performed. INDICATION: Pelvic pain. FINDINGS: The uterus measures 9.0 x 5.8 x 5.0 cm. The myometrium is normal in echogenicity without discrete mass. The endometrium measures up to 1.3 cm where visualized, and is normal in echogenicity. The right ovary measures 1.8 x 2.3 x 3.7 cm. The left ovary measures 4.1 x 3.2 x 2.8 cm. Both ovaries are physiologic in appearance, and in the left ovary there is a dominant anechoic cystic follicle measuring 2.6 x 1.9 x 1.8 cm. Blood flow is seen in both ovaries on color doppler imaging. No suspicious adnexal mass or fluid collection. Trace simple free pelvic fluid is likely physiologic in nature. IMPRESSION: 1. Normal ovaries without torsion. 2. Physiologic dominant follicle in the left ovary. Dictated by: Dictated on workstation # [id number]
== END 2018-02-10 11:56 | disposition home or self-care (01) ==
LOC: EDUNIT# 10:03 → ER 10:05
DX: R10.31 Right lower quadrant pain (principal); Z88.8 Allergy status to other drugs, medicaments and biological substances
CPT/HCPCS: 76830; 81000; 84703

== ENCOUNTER 2018-11-03 00:53 | Emergency (ER) | payer SELFPAY ==
[~2018-11-03] VITALS: Ht 154.9 cm; Wt 77.1 kg
--- OUTSIDE RECORDS SUMMARY | 2018-11-03 01:04 | XMS REPORT | Continuity of Care Document ---
Author Author [facility] Organization [facility] Address Unknown Phone Unavailable Allergies Active Description Code Type Severity Reaction Onset Reported/Identified Relationship to Patient Clinical Status Yes No Known Drug Allergies [id number] Drug Allergy Unknown N/A 01/17/2011 Yes nitrofurantoin [id number] Drug Allergy Unknown N/A 11/14/2017 Medications There [...] ACUTE MAXILLARY SINUSITIS, UNSPECIFIED 04/04/2016 GRICEL DOMINGUEZ [employer] Ot R51 HEADACHE 04/04/2016 GRICEL DOMINGUEZ APRN Ot J01.00 ACUTE MAXILLARY SINUSITIS, UNSPECIFIED 04/04/2016 GRICEL DOMINGUEZ [employer] Ot R51 HEADACHE 11/26/2016 MARIE MCCALL Ot [...] NAUSEA WITH VOMITING, UNSPECIFIED 08/07/2017 BETH CONDE, JOSÉU Moya Ot Z36.87 ENCOUNTER FOR SCREENING FOR [...] THE RESP SYS COMP , 09/22/2017 LI CONEDMARY ALICE Ot Z3A.28 28 WEEKS GESTATION OF [...] MD, Ot Z3A.36 36 WEEKS GESTATION OF 02/10/2018 BLAINE HUNTER DO Ot R11.2 NAUSEA WITH VOMITING, UNSPECIFIED 02/10/2018 JOSUÉ CAMPOS DO Ot Z36.87 ENCOUNTER FOR SCREENING FOR UN 02/10/2018 JOSUÉ CAMPOS DO Ot Z3A.19 19 WEEKS GESTATION OF 02/10/2018 SAMI VANG, BERLIN Abel Ot R10.31 RIGHT LOWER QUADRANT PAIN 02/10/2018 SAMI VANG, BERLIN Abel Ot Z88.8 ALLERGY STATUS TO OTH DRUG/MEDS/BIOL SUB 02/12/2018 SAMI VANG, BERLIN Abel Ot R10.31 RIGHT LOWER QUADRANT PAIN 02/12/2018 SAMI VANG, BERLIN Abel Ot Z88.8 ALLERGY STATUS TO OTH DRUG/MEDS/BIOL SUB Procedures Code Description Performed By Performed On 73.6 01/18/2011 75.69 REPAIR OB LACERATION NEC 10/17/2014 40V4ESH DELIVERY OF PRODUCTS OF CONCEPTION, EXTE 11/17/2017 [...] HELP) CALLED TO DR. JEFFERSON AT [address] [facility] FLU RESULT POSITIVE FOR INFLUENZA A ANTIGEN, NEG FOR B ANTIGEN, BY IA [facility] Comprehensive metabolic panel - 09/18/17 10:15 Serum [...] culture - 09/18/17 12:00 Bacterial urine culture [id number] NRG COLONY COUNT <10,000 NRG FTX;REPORTABLE SENSITIVITY [...] ABO+Rh group ON NRG Transfusion band number [id number] [facility] Blood group antibody screen NEGATIVE NRG Complete [...] Complete urinalysis with reflex to culture - 02/10/18 10:24 Urine color determination YELLOW NRG Urine clarity determination CLEAR NRG Urine pH measurement by test strip 8 5-9 Specific gravity of urine by test [...] count by microscopy (number/high power field ) RARE NRG Bacteria detection in urine sediment by light microscopy NEGATIVE NRG Squamous epithelial cells detection in urine sediment by light microscopy 5-10 NRG Crystals detection in urine sediment by light microscopy NONE NRG Casts detection in urine sediment by light microscopy NONE NRG Mucus detection in urine sediment by light microscopy NEGATIVE NRG Complete urinalysis with reflex to culture NO NRG Urine beta human chorionic gonadotropin (hCG) measurement - 02/10/18 10:24 Urine beta human chorionic gonadotropin (hCG) measurement NEGATIVE NEGATIVE Encounters ACCT No. Visit Date/Time Discharge Status Pt. Type Provider Facility Loc./Unit Complaint [id number] 02/10/2018 10:05:00 02/10/2018 11:56:00 DIS Emergency BERLIN GALLARDO MD [facility] ER ABD PAIN [id number] 11/17/2017 18:21:00 11/19/2017 12:30:00 DIS Inpatient JOSUÉ CAMPOS DO [facility] LDRP LABOR [id number] 11/14/2017 21:45:00 11/14/2017 23:34:00 DIS Outpatient VALERY SCHOFIELD MD [facility] WSo CONTRACTIONS [id number] 09/18/2017 09:51:00 09/18/2017 13:30:00 DIS Emergency LIMARY ALICE Trivedi DO [facility] ER FLU SYMPTOMS,28WEEKS PREG [id number] 08/06/2017 18:55:00 08/06/2017 19:35:00 DIS Outpatient VALERY SCHOFIELD MD [facility] WSo POSSIBLE CONTRACTIONS [id number] 07/14/2017 15:12:00 07/14/2017 23:59:59 CLS Outpatient JOSUÉ CAMPOS DO [facility] RAD Z33.1 [id number] 06/11/2017 21:34:00 06/11/2017 23:26:00 DIS Emergency GRICEL DOMINGUEZ APRN [facility] ER 14W5D PREG,HEADACHE/ DIZZINESS [id number] 01/21/2017 15:54:00 01/21/2017 17:52:00 DIS Emergency GRICEL DOMINGUEZ APRN [facility] ER LIGHT HEADED/DIZZY/SHAKEY [id number] 11/26/2016 21:41:00 11/26/2016 22:59:00 DIS Emergency MARIE MCCALL [facility] ER UPPER BACK PAIN [id number] 04/03/2016 13:58:00 04/03/2016 14:10:00 DIS Emergency GRICEL DOMINGUEZ APRN [facility] ER EARACHE HEADACHE CONGESTION [id number] 08/16/2015 08:45:00 08/16/2015 23:59:59 CLS Outpatient HUNTER BLAINE CONDE Merna [facility] RAD N/V [id number] 03/28/2015 12:24:00 03/28/2015 16:34:00 DIS Emergency MARIE MCCALL [facility] ER ABD/LOW BACK PAIN SPOTTING FEVER [id number] 01/20/2015 11:17:00 01/20/2015 11:41:00 DIS Emergency GRICEL DOMINGUEZ APRN [facility] ER TOOTHACHE [id number] 10/12/2014 13:09:00 10/12/2014 15:40:00 DIS Outpatient JOSUÉ CAMPOS DO [facility] WSo CONTRACTIONS [id number] 09/29/2014 11:30:00 09/30/2014 10:59:00 DIS Inpatient JOSUÉ CAMPOS DO [facility] LDRP LABOR [id number] 09/24/2014 23:00:00 09/24/2014 23:35:00 DIS Emergency AIDAN MCLAIN MD [facility] ER RASH [id number] 09/07/2014 15:04:00 09/07/2014 15:22:00 DIS Outpatient JOSUÉ CAMPOS DO [facility] WSo THRT OF PRE TERM LABOR [id number] 09/06/2014 15:45:00 09/07/2014 09:30:00 DIS Inpatient JOSUÉ CAMPOS DO [facility] LDRP PRE-TERM CONTRACTIONS [id number] 07/15/2014 18:29:00 07/15/2014 19:29:00 DIS Outpatient JOSUÉ CAMPOS DO [facility] WSo ABD PAIN, DEC MOVEMENT [id number] 05/01/2014 12:53:00 05/01/2014 14:50:00 DIS Emergency MARY ALICE JEFFERSON DO [facility] ER ABD PAIN @ 13 WEEKS [id number] 03/30/2017 20:04:00 Document Registration [id number] 10/17/2014 00:00:00 ACT Inpatient JOSUÉ CAMPOS DO [facility] LDRP CONTRACTIONS [id number] 04/09/2012 21:24:00 Document Registration [id number] 01/17/2011 16:07:00 Document Registration [id number] 03/28/2015 12:25:18 ACT Document Registration
--- NOTE | 2018-11-03 01:19 | ED EENT ---
History of Present Illness General Stated Complaint: MOUTH TONGUE & THROAT SWELLING Source: patient Exam Limitations: no limitations History of Present Illness Date Seen by Provider: Nov 03, 2018 Time Seen by Provider: 01:10 Initial Comments Patient presents to ER by private conveyance with chief complaint of tonight while at work is drinking monster drink and started noticing some tingling prickling sensation feeling like her throat was swelling. No difficulty swallowing fluids, secretions or breathing. No stridor or wheezing. No history of anaphylaxis. She does not take any medications. She said earlier she noticed a little pustule in the roof of her mouth. She said it's a burning tingling sensation. No history of cold sores or herpes. She does have a history of chickenpox. She has not taken anything for it. Her symptoms started at 1900 yesterday. Allergies and Home Medications Allergies Coded Allergies: nitrofurantoin (Unverified Allergy, Unknown, 11/14/17) throat swelling Home Medications Acyclovir 40 Mg/Ml Btl, 200 MG PO 5XD Prescribed by: LISSETTE WAY on 11/03/18 0123 Patient Home Medication List Home Medication List Reviewed: Yes Review of Systems Review of Systems Constitutional: No chills, No diaphoresis Eyes: Denies Blindness, Denies Blurred Vision Ears: Denies Dizziness, Denies Pain Nose: denies clots, denies congestion Mouth: denies clots, denies pain, denies swelling Throat: pain, swelling; denies neck stiffness, denies hoarse, denies painful swallowing, denies difficulty with fluids Respiratory: No cough, No short of breath Cardiovascular: No chest pain, No edema Past Pdmtqwj-Botuiq-Cvwxls Hx Patient Social History Alcohol Use: Denies Use Recreational Drug Use: No Smoking Status: Never a Smoker 2nd Hand Smoke Exposure: No Recent Foreign Travel: No Contact w/Someone Who Travel: No Recent Hopitalizations: No Immunizations Up To Date Tetanus Booster (TDap): Less than 5yrs PED Vaccines UTD: No Seasonal Allergies Seasonal Allergies: No Past Medical History Surgeries: No Respiratory: No Cardiac: No Neurological: No Reproductive Disorders: No Female Reproductive Disorders: Denies Sexually Transmitted Disease: No HIV/AIDS: No Genitourinary: No Gastrointestinal: Yes Gall Bladder Disease Musculoskeletal: No Endocrine: No HEENT: No Loss of Vision: Denies Hearing Impairment: Denies Cancer: No Psychosocial: No Integumentary: No Blood Disorders: No Adverse Reaction/Blood Tranf: No Family Medical History Patient reports no known family medical history. No Pertinent Family Hx Physical Exam Vital Signs Vital Signs - First Documented 11/03/18 01:05 Temp 96.4 Pulse 75 Resp 17 B/P (MAP) 109/57 (74) Height, Weight, BMI Height: 5'1.00" Weight: 160lbs. 6.0oz. 72.507225nz; 29.7 BMI Method:Stated General Appearance: WD/WN, no apparent distress Eyes: bilateral eye normal inspection, bilateral eye PERRL, bilateral eye EOMI Ears: bilateral ear auricle normal, bilateral ear canal normal, bilateral ear TM normal Nose: normal inspection; No active bleeding, No discharge Mouth/Throat: No pharynx swelling, No pharynx tenderness, No tongue swollen, No tonsillar exudate, No tonsillar swelling, No other (mild pharyngeal erythema and shallow ulcer on the right side roof of the oropharynx) Progress/Results/Core Measures Results/Orders Lab Results Laboratory Tests Test 11/03/18 01:10 Range/Units Group A Streptococcus Screen NEGATIVE NEGATIVE My Orders Orders - LISSETTE WAY Rapid Strep A Screen (11/03/18 01:11) Vital Signs/I&O 11/03/18 01:05 Temp 96.4 Pulse 75 Resp 17 B/P (MAP) 109/57 (74) Progress Progress Note : Time: 01:17 Progress Note Rapid strep was obtained. We will set her up some acyclovir for likely a herpes gingival stomatitis. No evidence of anaphylaxis. Departure Impression Primary Impression: Herpes stomatitis Disposition: HOME, SELF-CARE Condition: Stable Departure-Patient Inst. Decision time for Depature: 02:04 Referrals: [facility] (PCP/Family) Primary Care Physician Patient Instructions: Mouth Sores (DC) Add. Discharge Instructions: supply room clerk the acyclovir and take 5 times a day, for the next 5 days to reduce the severity and longevity of the infection. Do not share eating utensils or straws while having an active infection. Return to the ER immediately if you begin to have difficulty breathing or inability to swallow fluids. Scripts Acyclovir (Acyclovir) 40 Mg/Ml Btl 200 MG PO 5XD for 5 Days, #130 ML 0 Refills Prov: LISSETTE WAY 11/03/[address] Nov 03, 2018 01:19
[2018-11-03] MEDS ORDERED: ACYSUS PO (01:23)
[2018-11-03 02:19] VITALS: BP 110/60
== END 2018-11-03 02:20 | disposition home or self-care (01) ==
LOC: EDUNIT# 00:53 → ER 00:58
DX: B00.2 Herpesviral gingivostomatitis and pharyngotonsillitis (principal); Z88.8 Allergy status to other drugs, medicaments and biological substances; Z87.19 Personal history of other diseases of the digestive system
CPT/HCPCS: 87430; 99284

== ENCOUNTER 2020-04-20 10:13 | Emergency (ER) | payer MEDICAID, OTHER ==
[~2020-04-20] VITALS: Ht 154.9 cm; Wt 80.0 kg
[~2020-04-20 10:13] MED LIST changes: +ACYSUS PO
--- NOTE | 2020-04-20 11:28 | ED General ---
General Chief Complaint: General Problems/Pain Stated Complaint: PAIN ALL OVER;RASH;10 WKS Nursing Triage Note: AMB TO ROOM REPORTS IS 10 WEEKS PREG WITH TWINS. WOKE UP WITH PAIN IN NECK AND SHOULDER. DENIES ANY EXPOSURE TO COVID OR TEMP. OR SOA. DOES HAVE NAUSEA BUT THAT IS NORMAL DUE TO PREG ALSO REPORT HAS NOT BEEN AROUND ANYONE DUE TO BEING PREG WITH TWINS. Nursing Sepsis Screen: No Definite Risk Source of Information: Patient Exam Limitations: No Limitations History of Present Illness Date Seen by Provider: Apr 20, 2020 Time Seen by Provider: 11:00 Initial Comments 29-year-old female who presents to the emergency room with complaints of generalized body aches for the past few days and she woke up this morning with a sporadic bites all over. She reports mild itching. She denies any symptoms of COVID including loss of taste or smell, shortness of breath, fevers, or known exposure. She is 10 weeks and reports that she has been isolating at home just for the safety of herself and her unborn children. Timing/Duration: 5-6 Days Associated Systoms: Rash Allergies and Home Medications Allergies Coded Allergies: nitrofurantoin (Unverified Allergy, Unknown, 11/14/17) throat swelling Home Medications Acyclovir 40 Mg/Ml Btl, 200 MG PO 5XD Prescribed by: LISSETTE WAY on 11/03/18 0123 Past Avkqevb-Ayyfot-Lgaqlt Hx Patient Social History 2nd Hand Smoke Exposure: No Recent Foreign Travel: No Contact w/Someone Who Travel: No Recent Infectious Disease Expo: No Recent Hopitalizations: No Immunizations Up To Date Tetanus Booster (TDap): Less than 5yrs PED Vaccines UTD: No Seasonal Allergies Seasonal Allergies: No Past Medical History Surgeries: No Respiratory: No Cardiac: No Neurological: No Reproductive Disorders: No Female Reproductive Disorders: Denies Sexually Transmitted Disease: No HIV/AIDS: No Genitourinary: No Gastrointestinal: Yes Gall Bladder Disease Musculoskeletal: No Endocrine: No HEENT: No Loss of Vision: Denies Hearing Impairment: Denies Cancer: No Psychosocial: No Integumentary: No Blood Disorders: No Adverse Reaction/Blood Tranf: No Family Medical History Patient reports no known family medical history. No Pertinent Family Hx Physical Exam Vital Signs Vital Signs - First Documented 04/20/20 10:38 Temp 36.6 Pulse 82 Resp 18 B/P (MAP) 117/82 (94) Pulse Ox 98 Capillary Refill : Less Than 3 Seconds Height, Weight, BMI Height: 5'1.00" Weight: 170lbs. 0oz. 77.724606el; 33.00 BMI Method:Stated Progress/Results/Core Measures Suspected Sepsis Recent Fever Within 48 Hours: No Infection Criteria Present: None New/Unexplained Altered Menta: No Sepsis Screen: No Definite Risk SIRS Temperature: Pulse: 82 Respiratory Rate: 18 Laboratory Tests 04/20/20 11:30: White Blood Count 9.8 Blood Pressure 117 /82 Mean: 94 Laboratory Tests 04/20/20 11:30: Creatinine 0.59L, Platelet Count 143, Total Bilirubin 0.6 Results/Orders Lab Results Laboratory Tests Test 04/20/20 11:30 04/20/20 11:37 Range/Units White Blood Count 9.8 4.3-11.0 10^3/uL Red Blood Count 4.53 4.35-5.85 10^6/uL Hemoglobin 12.8 11.5-16.0 G/DL Hematocrit 37 35-52 % Mean Corpuscular Volume 82 80-99 FL Mean Corpuscular Hemoglobin 28 25-34 PG Mean Corpuscular Hemoglobin Concent 34 32-36 G/DL Red Cell Distribution Width 14.2 10.0-14.5 % Platelet Count 143 130-400 10^3/uL Mean Platelet Volume 13.4 H 7.4-10.4 FL Neutrophils (%) (Auto) 85 H 42-75 % Lymphocytes (%) (Auto) 6 L 12-44 % Monocytes (%) (Auto) 8 0-12 % Eosinophils (%) (Auto) 1 0-10 % Basophils (%) (Auto) 0 0-10 % Neutrophils # (Auto) 8.3 H 1.8-7.8 X 10^3 Lymphocytes # (Auto) 0.6 L 1.0-4.0 X 10^3 Monocytes # (Auto) 0.8 0.0-1.0 X 10^3 Eosinophils # (Auto) 0.1 0.0-0.3 10^3/uL Basophils # (Auto) 0.0 0.0-0.1 10^3/uL Neutrophils % (Manual) 84 % Lymphocytes % (Manual) 11 % Monocytes % (Manual) 4 % Eosinophils % (Manual) 1 % Basophils % (Manual) 0 % Band Neutrophils 0 % Blood Morphology Comment NORMAL Sodium Level 136 135-145 MMOL/L Potassium Level 3.6 3.6-5.0 MMOL/L Chloride Level 106 98-107 MMOL/L Carbon Dioxide Level 21 21-32 MMOL/L Anion Gap 9 5-14 MMOL/L Blood Urea Nitrogen 6 L 7-18 MG/DL Creatinine 0.59 L 0.60-1.30 MG/DL Estimat Glomerular Filtration Rate > 60 BUN/Creatinine Ratio 10 Glucose Level 90 70-105 MG/DL Calcium Level 8.8 8.5-10.1 MG/DL Corrected Calcium 9.1 8.5-10.1 MG/DL Total Bilirubin 0.6 0.1-1.0 MG/DL Aspartate Amino Transf (AST/SGOT) 31 5-34 U/L Alanine Aminotransferase (ALT/SGPT) 50 0-55 U/L Alkaline Phosphatase 74 40-136 U/L Total Protein 7.3 6.4-8.2 GM/DL Albumin 3.6 3.2-4.5 GM/DL Urine Color YELLOW Urine Clarity CLEAR Urine pH 6.0 5-9 Urine Specific [place] 1.025 H 1.016-1.022 Urine Protein 1+ H NEGATIVE Urine Glucose (UA) NEGATIVE NEGATIVE Urine Ketones 2+ H NEGATIVE Urine Nitrite NEGATIVE NEGATIVE Urine Bilirubin 1+ H NEGATIVE Urine Urobilinogen 1.0 < = 1.0 MG/DL Urine Leukocyte Esterase 2+ H NEGATIVE Urine RBC (Auto) NEGATIVE NEGATIVE Urine RBC 0-2 /HPF Urine WBC 25-50 H /HPF Urine Squamous Epithelial Cells 25-50 H /HPF Urine Crystals NONE /LPF Urine Bacteria LARGE H /HPF Urine Casts NONE /LPF Urine Mucus MODERATE H /LPF Urine Culture Indicated YES My Orders Orders - ANAMIKA SHIELDS Comprehensive Metabolic Panel (04/20/20 11:19) Ua Culture If Indicated (04/20/20 11:19) Ed Iv/Invasive Line Start (04/20/20 11:19) Cbc With Automated Diff (04/20/20 11:19) Tick Panel With Lyme Eia (04/20/20 11:19) Manual Differential (04/20/20 11:30) Urine Culture (04/20/20 11:37) Vital Signs/I&O 04/20/20 10:38 Temp 36.6 Pulse 82 Resp 18 B/P (MAP) 117/82 (94) Pulse Ox 98 Capillary Refill : Less Than 3 Seconds Blood Pressure Mean: 94 Departure Impression Primary Impression: UTI (urinary tract infection) during Additional Impressions: Rash Chigger bites Disposition: 01 HOME, SELF-CARE Condition: Stable/Unchanged Departure-Patient Inst. Decision time for Depature: 12:29 Referrals: [facility] (PCP/Family) Primary Care Physician Patient Instructions: Urinary Tract Infections in Add. Discharge Instructions: Drink plenty of fluids to flush out your kidneys and urinary tract. Take antibiotics as directed. You may use Benadryl as needed for rash. I went to follow-up with Dr. CAMPOS early next week and your primary care provider as well. Return back to the emergency room for worsening symptoms or concerns as needed. All discharge instructions reviewed with patient and/or family. Voiced understanding. Scripts Amoxicillin/Potassium Clav (Augmentin 875-125 Tablet) 1 Each Tablet 1 EACH PO BID for 7 Days, #14 TAB 0 Refills Prov: ANAMIKA SHIELDS 04/20/20 ANAMIKA SHIELDS Apr 20, 2020 11:28
[2020-04-20 11:42] LABS: BASOPHILS % (AUTO) 0 % (0-10); EOSINOPHILS # (AUTO) 0.1 10^3/uL (0.0-0.3); EOSINOPHILS % (AUTO) 1 % (0-10); HEMATOCRIT 37 % (35-52); HEMOGLOBIN 12.8 G/DL (11.5-16.0); LYMPHOCYTES # (AUTO) 0.6 X 10^3 (1.0-4.0); LYMPHOCYTES % (AUTO) 6 % (12-44); MEAN CORPUSCULAR HEMOGLOBIN 28 PG (25-34); MEAN CORPUSCULAR HGB CONC 34 G/DL (32-36); MEAN CORPUSCULAR VOLUME 82 FL (80-99); MEAN PLATELET VOLUME 13.4 FL (7.4-10.4); MONOCYTES # (AUTO) 0.8 X 10^3 (0.0-1.0); MONOCYTES % (AUTO) 8 % (0-12); NEUTROPHILS # (AUTO) 8.3 X 10^3 (1.8-7.8); NEUTROPHILS % (AUTO) 85 % (42-75); PLATELET COUNT 143 10^3/uL (130-400); RED CELL DISTRIBUTION WIDTH 14.2 % (10.0-14.5); WHITE BLOOD COUNT 9.8 10^3/uL (4.3-11.0)
[2020-04-20 12:11] LABS: ALANINE AMINOTRANSFERASE 50 U/L (0-55); ALBUMIN 3.6 GM/DL (3.2-4.5); ALKALINE PHOSPHATASE 74 U/L (40-136); BILIRUBIN,TOTAL 0.6 MG/DL (0.1-1.0); BUN/CREATININE RATIO 10; CALCIUM 8.8 MG/DL (8.5-10.1); CARBON DIOXIDE 21 MMOL/L (21-32); CHLORIDE 106 MMOL/L (98-107); CREATININE SERUM 0.59 MG/DL (0.60-1.30); GFR ESTIMATED > 60; GLUCOSE 90 MG/DL (70-105); POTASSIUM 3.6 MMOL/L (3.6-5.0); SODIUM 136 MMOL/L (135-145); TOTAL PROTEIN 7.3 GM/DL (6.4-8.2)
[2020-04-20 12:11] LABS: CLARITY,URINE CLEAR; COLOR,URINE YELLOW; GLUCOSE, URINE (UA) NEGATIVE (NEGATIVE); KETONES,URINE 2+ (NEGATIVE); PROTEIN,URINE 1+ (NEGATIVE)
[2020-04-20 12:12] LABS: BACTERIA,URINE LARGE /HPF; BILIRUBIN,URINE 1+ (NEGATIVE); LEUKOCYTE ESTERASE ,URINE 2+ (NEGATIVE); NITRITE,URINE NEGATIVE (NEGATIVE); RBC,URINE 0-2 /HPF; SQUAMOUS EPITHELIAL CELL,UR 25-50 /HPF; WBC,URINE 25-50 /HPF
[2020-04-20 12:27] LABS: BAND NEUTROPHILS 0 %; BASOPHILS % (MANUAL) 0 %; EOSINOPHILS % (MANUAL) 1 %; LYMPHOCYTES % (MANUAL) 11 %; MONOCYTES % (MANUAL) 4 %; NEUTROPHILS % (MANUAL) 84 %
[2020-04-20 12:28] LABS: RBC MORPH NORMAL
[2020-04-20] MEDS ORDERED: AMOX-358 PO (12:32)
[2020-04-20 12:49] VITALS: BP 110/57
== END 2020-04-20 12:49 | disposition home or self-care (01) ==
LOC: EDUNIT# 10:13 → ER 10:15
DX: O23.41 Unspecified infection of urinary tract in pregnancy, first trimester (principal); O99.711 Diseases of the skin and subcutaneous tissue complicating pregnancy, first trimester; R21 Rash and other nonspecific skin eruption; B88.0 Other acariasis; Z3A.10 10 weeks gestation of pregnancy; Z88.1 Allergy status to other antibiotic agents
CPT/HCPCS: 36415; 80053; 81000; 85007; 85027; 86618; 86666; 86668; 86757; 87088

== ENCOUNTER → 2020-06-23 | Outpatient (CLI) | payer MEDICAID ==
--- NOTE | 2020-06-23 11:41 | Diagnostic Imaging Report ---
INDICATION: Twin . TECHNIQUE: Multiple real-time grayscale images were obtained over the gravid uterus. COMPARISON: None FINDINGS: A dichorionic diamniotic twin is noted. Both placentas appear to be posteriorly located. There is a thin dividing membrane. Twin A and twin B are both cephalic. Twin A is to maternal left and towards the cervix. Twin B is more fundal and to the maternal right. Twin A heart rate is 152 bpm and twin B heart rate is 140 bpm. Amniotic fluid volume appears normal. Cervical length is 5.7 cm. Both babies demonstrate normal kidneys, bladder and stomach. The brain is unremarkable. There is four-chamber heart views. Both twin A and twin B demonstrate 3 vessel cord with normal insertion. spines are unremarkable. Biometrical measurements are as follows: Biparietal 4.6 cm, age 19 weeks 6 days. Head circumference 16.4 cm, age 19 weeks 1 days. Abdominal circumference 13.9 cm, age 19 weeks 3 days. Femur length 2.9 cm, age 19 weeks 1 days. Sonographic estimate age: 19 weeks 3 days. Sonographic estimated date of delivery: 11/14/2020. Estimated Weight: 280 gm (+/- 41 gm). LMP percentile: 40%. heart rate: 152 beats per minute. number: 1 of 2. IMPRESSION: Dichorionic diamniotic twin of approximately 19 weeks 3 days gestational age. Estimated date of confinement sonographically is 11/14/2020. Dictated by: Dictated on workstation # [id number]
--- NOTE | 2020-06-26 08:38 | Diagnostic Imaging Report ---
INDICATION: Twin . TECHNIQUE: Multiple real-time grayscale images were obtained over the gravid uterus. COMPARISON: None FINDINGS: A dichorionic diamniotic twin is noted. Both placentas appear to be posteriorly located. There is a thin dividing membrane. Twin A and twin B are both cephalic. Twin A is to maternal left and towards the cervix. Twin B is more fundal and to the maternal right. Twin A heart rate is 152 bpm and twin B heart rate is 140 bpm. Amniotic fluid volume appears normal. Cervical length is 5.7 cm. Both babies demonstrate normal kidneys, bladder and stomach. The brain is unremarkable. There is four-chamber heart views. Both twin A and twin B demonstrate 3 vessel cord with normal insertion. spines are unremarkable. Biometrical measurements are as follows: Biparietal 4.42 cm, age 19 weeks 3 days. Head circumference 16.2 cm, age 19 weeks 0 days. Abdominal circumference 13.8 cm, age 19 weeks 2 days. Femur length 3.1 cm, age 19 weeks 4 days. Sonographic estimate age: 19 weeks 3 days. Sonographic estimated date of delivery: 11/14/2020. Estimated Weight: 287 gm (+/- 42 gm). LMP percentile: 48%. heart rate: 140 beats per minute. number: 2 of 2. IMPRESSION: Dichorionic diamniotic twin of approximately 19 weeks 3 days gestational age. Estimated date of confinement sonographically is 11/14/2020. Dictated by: Dictated on workstation # [id number]
== END ==
LOC: RAD 10:00
PROVIDERS: ATTEND Obstetrics & Gynecology
DX: O30.042 Twin pregnancy, dichorionic/diamniotic, second trimester (principal); Z3A.19 19 weeks gestation of pregnancy
CPT/HCPCS: 76805; 76810

== ENCOUNTER 2020-09-07 12:20 | Observation (INO) | payer MEDICAID ==
[2020-09-07] VITALS (12 sets, daily range): BP systolic 99–122; BP diastolic 52–71
[~2020-09-07] VITALS: Ht 154.9 cm; Wt 84.3 kg
--- NOTE | 2020-09-07 12:26 | NUR ---
BLANCHE BANDA presented to unit via AMBULATORY from ED, with c/o CONTRACTIONS. BLANCHE BANDA weighed, gowned, voided, and to bed. EFHM and TOCO applied, VS taken. BLANCHE BANDA oriented to bed controls, call light, TV, heat, and A/C controls.
[2020-09-07] MEDS ORDERED: FERR-65 PO (12:44)
[2020-09-07] MEDS ORDERED: PEDI18TA2 PO (12:45)
[2020-09-07 12:51] LABS: BILIRUBIN,URINE NEGATIVE (NEGATIVE); CLARITY,URINE CLEAR; COLOR,URINE YELLOW; GLUCOSE, URINE (UA) NEGATIVE (NEGATIVE); KETONES,URINE NEGATIVE (NEGATIVE); LEUKOCYTE ESTERASE ,URINE NEGATIVE (NEGATIVE); NITRITE,URINE NEGATIVE (NEGATIVE); PH,URINE 7.5 (5-9); PROTEIN,URINE NEGATIVE (NEGATIVE)
[2020-09-07 12:57] LABS: BACTERIA,URINE NEGATIVE /HPF; SQUAMOUS EPITHELIAL CELL,UR 0-2 /HPF
--- NOTE | 2020-09-07 13:04 | NUR ---
DR. CAMPOS NOTIFIED OF PT'S ARRIVAL, GESTATION, C/O, SVE AND UA RESULTS. NEW ORDERS RECEIVED.
[2020-09-07] MEDS ORDERED: BETAMETHASONE ACE/NA PHOS 6 MG/ML (CELESTONE SOLUSPAN) ONE (13:06)
[2020-09-07] MEDS: D5 LR IV SOLUTION 1,000 ML IV SCH ×2 (13:21→22:20)
[2020-09-07] MEDS: BETAMETHASONE ACE/NA PHOS 6 MG/ML (CELESTONE SOLUSPAN) IM SCH (13:22)
[2020-09-07] MEDS ORDERED: MAGNESIUM SULFATE DRIP 500 ML IV ONE (14:05)
[2020-09-07] MEDS ORDERED: MAGNESIUM 4 GM/100 ML IVPB 100 ML IV ONE (14:05)
[2020-09-07] MEDS ORDERED: CALCIUM GLUC. 10% 4.65 MEQ/10 ML VIAL ONE (14:13)
[2020-09-07] MEDS ORDERED: MAGNESIUM 4 GM/100 ML IVPB 100 ML IV SCH (14:15)
[2020-09-07] MEDS ORDERED: D5 LR IV SOLUTION 1,000 ML IV SCH (14:15)
[2020-09-07] MEDS ORDERED: CALCIUM GLUC. 10% 4.65 MEQ/10 ML VIAL IV PRN (14:15)
[2020-09-07] MEDS: MAGNESIUM SULFATE DRIP 500 ML IV SCH (14:44)
[2020-09-07] MEDS ORDERED: HYDROmorphone 2 MG/ML VIAL (DILAUDID) IV ONE (15:30)
[2020-09-07] MEDS ORDERED: INDOMETHACIN 25 MG (INDOCIN) CAP PO NR (15:30)
[2020-09-07] MEDS ORDERED: INDOMETHACIN 25 MG CAPSULE PO ONE (15:42)
--- NOTE | 2020-09-07 15:46 | NUR ---
DR. CAMPOS TO PT'S BEDSIDE.
[2020-09-07] MEDS: INDOMETHACIN 25 MG (INDOCIN) CAP PO SCH (22:13)
[2020-09-08] VITALS (15 sets, daily range): BP systolic 87–123; BP diastolic 51–68
[2020-09-08] MEDS: MAGNESIUM SULFATE DRIP 500 ML IV SCH (00:12)
[2020-09-08] MEDS ORDERED: ACETAMINOPHEN 500 MG TAB (TYLENOL) ONE (01:29)
[2020-09-08] MEDS ORDERED: ACETAMINOPHEN 500 MG TAB (TYLENOL) PO PRN (01:30)
[2020-09-08] MEDS ORDERED: CALCIUM CARBONATE 500 MG (TUMS) TAB.CHEW ONE (04:06)
[2020-09-08] MEDS: INDOMETHACIN 25 MG (INDOCIN) CAP PO SCH ×2 (04:06→10:28)
[2020-09-08] MEDS ORDERED: CALCIUM CARBONATE 500 MG (TUMS) TAB.CHEW PO ONE (04:15)
--- NOTE | 2020-09-08 07:36 | History & Physical-OB ---
OB - Chief Complaint & HPI Date/Time Date of Admission: Date of Admission: Sep 07, 2020 at 13:05 Date seen by a Provider: Sep 07, 2020 Time Seen by a Provider: 15:45 Chief Complaint/History OB-Reason for Admission/Chief: Labor Hx : 4 Hx Para: 3 Expected Date of Delivery: Nov 15, 2020 Gestational Age in Weeks: 30 Gestational Age in Days: 1 Other reason for admission: Patient admitted from home after calling office with contractions every 5 min pushing patient to tears. Admission Nurse Assessment Rev: Yes Allergies and Home Medications Allergies Coded Allergies: nitrofurantoin (Unverified Allergy, Unknown, 11/14/17) throat swelling Home Medications Ferrous Sulfate 325 Mg Tablet, 325 MG PO TID, (Reported) Pedi Mv No.79/Ferrous Fumarate 18 Mg Tab.chew, 18 MG PO BID, (Reported) Patient Home Medication List Home Medication List Reviewed: Yes OB - History Hx of Present Care: Yes Ultrasounds: Normal mid trimester US (Di-Di Twins) Obstetrical Complications: Other (Twin gestation) Medical Complications: None Obstetrical History Hx : 4 Hx Para: 3 Hx Termination: No Hx Total # of Abortions (Spona: 0 Hx Multiple Gestation: No Hx Stillbirth: No Hx Complication: No Hx Induced Hypertens: No Hx Maternal Gestational Diabet: No Delivery History Hx Dystocia: No Hx Large For Gestational Age I: No Hx Small for Gestational Age I: No Hx Section: No Hx Vaginal Delivery Post C-Sec: No Hx Blood Disorders: No Adverse Rxn to Tranfusion: No Patient Past Medical History none Social History/Family History HIV/AIDS: No Sexually Transmitted Disease: No Alcohol Use: Denies Use Recreational Drug Use: No 2nd Hand Smoke Exposure: No Immunizations Hepatitis A: No Hepatitis B: No Tetanus Booster (TDap): Less than 5yrs OB - Admission Exam Physical Exam Vitals: Vital Signs 09/08/20 06:00 Temp 36.0 Pulse 92 Resp 18 B/P (MAP) 108/68 (81) Pulse Ox 98 O2 Delivery Room Air HEENT: NCAT Heart: Rhythm Normal Lungs: Clear Extremities: Normal Reflexes: Normal Cervical Dilatation: 1cm Effacement: 50% Station: -2 Membranes: Intact Heart Rate: 130's Accelerations: Accelerations Present Decelerations: No Decelerations Short Term Variability: Present Residential Variability: Average (6-25) Contractions on Admission: < 5 Minutes Apart Intensity: Firm Labs Laboratory Tests Test 09/07/20 12:35 09/07/20 13:15 Range/Units Urine Color YELLOW Urine Clarity CLEAR Urine pH 7.5 5-9 Urine Specific [place] <=1.005 1.016-1.022 Urine Protein NEGATIVE NEGATIVE Urine Glucose (UA) NEGATIVE NEGATIVE Urine Ketones NEGATIVE NEGATIVE Urine Nitrite NEGATIVE NEGATIVE Urine Bilirubin NEGATIVE NEGATIVE Urine Urobilinogen 0.2 < = 1.0 MG/DL Urine Leukocyte Esterase NEGATIVE NEGATIVE Urine RBC (Auto) NEGATIVE NEGATIVE Urine RBC NONE /HPF Urine WBC NONE /HPF Urine Squamous Epithelial Cells 0-2 /HPF Urine Crystals NONE /LPF Urine Bacteria NEGATIVE /HPF Urine Casts NONE /LPF Urine Mucus NEGATIVE /LPF Urine Culture Indicated NO Magnesium Level 1.9 1.6-2.4 MG/DL OB - Assessment/Plan/Diagnosis Assessment Assessment: section Admission Dx 30 yo @ 30 weeks Diamniotic dichorionic twins labor Admission Status: Inpatient Order (span 2 midnights) Reason for Inpatient Admission: 30 week twin gestation, labor Plan Other Plan Patient admitted given IVF bolus with no response in contraction pattern. Betamethsone given for lung maturity, and MgSO4 infusion started for neuroprotection. After starting magnesium still no response in contractions, Indocin 100 mg loading dose given followed by 50 q6 hrs. Good response in contr action pattern noted after this. Recheck of cervix this morning showed no cervical change from admission- Going to transition turning of MgSO4 this morning, and switching to Procardia 10 mg po q 4 hrs. If contractions continue to be stable will consider dc home on strict bedrest, procardia, and to finish last 3 doses of Indocin, after second dose of bmz. JOSUÉ CAMPOS DO Sep 08, 2020 07:36
[2020-09-08] MEDS ORDERED: NIFE10CA44 PO (07:38)
[2020-09-08] MEDS ORDERED: INDO25CA99 PO (07:38)
[2020-09-08] MEDS ORDERED: NIFEdipine 10 MG CAPS (WOMEN'S SERVICES ONLY!!!) PO SCH (10:00)
[2020-09-08] MEDS: BETAMETHASONE ACE/NA PHOS 6 MG/ML (CELESTONE SOLUSPAN) IM SCH (13:57)
--- NOTE | 2020-09-08 15:02 | NUR ---
DISCHARGE PAPERS PROVIDED AND REVIEWED WITH PT, PT VERBALIZES UNDERSTANDING AND DENIES ANY NEEDS AT THIS TIME. PAPER SIGNED. PRESCRIPTIONS ALSO PROVIDED AT THIS TIME AND PLACED INTO DISCHARGE FOLDER.
--- NOTE | 2020-09-08 15:10 | NUR ---
PT DISCHARGED FROM -301 TO PERSONAL AUTO VIA W/C IN STABLE CONDITION ACC BY Leora ROCK RN.
--- NOTE | 2020-09-12 11:59 | Physician Query-Final Dx ---
KATHI MURO 09/12/20 1159: Final Diagnosis Give Final Diagnosis Please give Final Diagnosis JOSUÉ CAMPOS DO 09/14/20 1553: Final Diagnosis Give Final Diagnosis 30 week Di/Di twins labor KATHI MURO Sep 12, 2020 11:59 JOSUÉ CAMPOS DO Sep 14, 2020 15:53
== END 2020-09-08 14:54 | disposition home or self-care (01) ==
LOC: WSo 12:20 → LDRP 12:21 → WSo 13:04 → LDRP 13:04 → UNDOADMOB 13:05 → LDRP 15:06 → WS 09-08 12:48 → UNDODISOB 09-08 15:10 → EDSTATUS 09-14 07:36
PROVIDERS: ADMIT Obstetrics & Gynecology; ATTEND Obstetrics & Gynecology
DX: O60.14X0 Preterm labor third trimester with preterm delivery third trimester, not applicable or unspecified (principal); Z3A.30 30 weeks gestation of pregnancy; Z37.2 Twins, both liveborn; Z88.1 Allergy status to other antibiotic agents
CPT/HCPCS: 81000; 83735; 96361 ×2; 96372 ×2; 96374; 96376 ×2; G0378; G0379; 36415; 99211

== ENCOUNTER 2020-10-03 16:38 | Inpatient (IN) | payer MEDICAID ==
[~2020-10-03] VITALS: Ht 154.9 cm; Wt 84.8 kg
[2020-10-03] VITALS (7 sets, daily range): BP systolic 112–129; BP diastolic 38–73
--- NOTE | 2020-10-03 16:29 | NUR ---
BLANCHE BANDA presented to unit via ambulation from Dr. castillo, with c/o LABOR. BLANCHE BANDA weighed, gowned, voided, and to bed. EFHM and TOCO applied, VS taken. BLANCHE BANDA oriented to bed controls, call light, TV, heat, and A/C controls.
[~2020-10-03 16:38] MED LIST changes: +FERR-65 PO; +INDO25CA99 PO; +NIFE10CA44 PO; +PEDI18TA2 PO
[2020-10-03] MEDS ORDERED: AMPICILLIN FOR IV USE 2,000 MG in WATER (STERILE) FOR INJECTION 14.8 ML IV SCH (16:52)
[2020-10-03] MEDS ORDERED: MINERAL OIL CONCENTRATE 99.9% 15 ML UDC TOP PRN (17:00)
[2020-10-03] MEDS ORDERED: D5 LR IV SOLUTION 1,000 ML IV SCH (17:00)
[2020-10-03 17:01] LABS: BASOPHILS % (AUTO) 0 % (0-10); EOSINOPHILS # (AUTO) 0.1 10^3/uL (0.0-0.3); EOSINOPHILS % (AUTO) 1 % (0-10); HEMATOCRIT 33 % (35-52); HEMOGLOBIN 10.3 g/dL (11.5-16.0); LYMPHOCYTES # (AUTO) 1.6 10^3/uL (1.0-4.0); LYMPHOCYTES % (AUTO) 15 % (12-44); MEAN CORPUSCULAR HEMOGLOBIN 24 pg (25-34); MEAN CORPUSCULAR HGB CONC 31 g/dL (32-36); MEAN CORPUSCULAR VOLUME 77 fL (80-99); MEAN PLATELET VOLUME 12.3 fL (9.0-12.2); MONOCYTES # (AUTO) 0.7 10^3/uL (0.0-1.0); MONOCYTES % (AUTO) 6 % (0-12); NEUTROPHILS % (AUTO) 77 % (42-75); PLATELET COUNT 203 10^3/uL (130-400); WHITE BLOOD COUNT 10.4 10^3/uL (4.3-11.0)
[2020-10-03] MEDS ORDERED: LACTATED RINGERS 1,000 ML IV SCH (17:15)
[2020-10-03] MEDS ORDERED: OXYTOCIN PRE-MIX DRIP 0 ML IV ONE (17:32)
[2020-10-03] MEDS ORDERED: LIDOCAINE/EPI 2% 1:200,00 (XYLOCAINE) 10 ML VIAL ONE (17:32)
[2020-10-03] MEDS ORDERED: OXYTOCIN PRE-MIX DRIP 500 ML IV ONE ×2 (19:07→21:55)
[2020-10-03] MEDS ORDERED: AMPICILLIN FOR IV USE 1,000 MG in WATER (STERILE) FOR INJECTION 7.4 ML IV SCH (21:00)
[2020-10-03] MEDS ORDERED: METHYLERGONOVINE 0.2 MG/ML (METHERGINE) AMP ONE (21:53)
[2020-10-03] MEDS ORDERED: CATHETER FLUSH 10 ML SYR IV SCH (22:00)
[2020-10-03] MEDS: OXYTOCIN PRE-MIX DRIP 500 ML IV SCH ×2 (22:32→23:03)
--- NOTE | 2020-10-03 22:52 | History & Physical-OB ---
OB - Chief Complaint & HPI Date/Time Date of Admission: Date of Admission: Oct 03, 2020 at 16:38 Date seen by a Provider: Oct 03, 2020 Time Seen by a Provider: 17:00 Chief Complaint/History OB-Reason for Admission/Chief: Labor Hx : 4 Hx Para: 3 Expected Date of Delivery: Nov 15, 2020 Gestational Age in Weeks: 33 Gestational Age in Days: 6 Admission Nurse Assessment Rev: Yes Allergies and Home Medications Allergies Coded Allergies: nitrofurantoin (Unverified Allergy, Unknown, 11/14/17) throat swelling Home Medications Nifedipine 10 Mg Capsule, 10 MG PO Q4HR Prescribed by: JOSUÉ CAMPOS on 09/08/20 0738 Pedi Mv No.79/Ferrous Fumarate 18 Mg Tab.chew, 18 MG PO BID, (Reported) Patient Home Medication List Home Medication List Reviewed: Yes OB - History Hx of Present Care: Yes Ultrasounds: Abnormal US findings (Di Di twin gestatin) Obstetrical Complications: None Medical Complications: None Obstetrical History Hx Termination: No Hx Multiple Gestation: No Hx Stillbirth: No Hx Complication: No Hx Induced Hypertens: No Hx Maternal Gestational Diabet: No Delivery History Hx Dystocia: No Hx Large For Gestational Age I: No Hx Small for Gestational Age I: No Hx Section: No Hx Vaginal Delivery Post C-Sec: No Hx Blood Disorders: No Adverse Rxn to Tranfusion: No Patient Past Medical History none Social History/Family History 2nd Hand Smoke Exposure: No Immunizations Hepatitis A: Yes Hepatitis B: Yes Tetanus Booster (TDap): Less than 5yrs OB - Admission Exam Physical Exam Vitals: Vital Signs 10/03/20 16:42 Temp 36.9 Pulse 100 Resp 18 Pulse Ox 99 O2 Delivery Room Air HEENT: NCAT Heart: Rhythm Normal Lungs: Clear Abdomen: Gravid Extremities: Normal Reflexes: Normal Cervical Dilatation: 4cm Effacement: 75% Station: -1 Membranes: Intact Heart Rate: 130's Accelerations: Accelerations Present Decelerations: No Decelerations Short Term Variability: Present Shelter Variability: Average (6-25) Contractions on Admission: < 5 Minutes Apart Intensity: Firm Labs Laboratory Tests Test 10/03/20 16:46 10/03/20 17:10 Range/Units White Blood Count 10.4 4.3-11.0 10^3/uL Red Blood Count 4.25 3.80-5.11 10^6/uL Hemoglobin 10.3 L 11.5-16.0 g/dL Hematocrit 33 L 35-52 % Mean Corpuscular Volume 77 L 80-99 fL Mean Corpuscular Hemoglobin 24 L 25-34 pg Mean Corpuscular Hemoglobin Concent 31 L 32-36 g/dL Red Cell Distribution Width 15.6 H 10.0-14.5 % Platelet Count 203 130-400 10^3/uL Mean Platelet Volume 12.3 H 9.0-12.2 fL Immature Granulocyte % (Auto) 1 % Neutrophils (%) (Auto) 77 H 42-75 % Lymphocytes (%) (Auto) 15 12-44 % Monocytes (%) (Auto) 6 0-12 % Eosinophils (%) (Auto) 1 0-10 % Basophils (%) (Auto) 0 0-10 % Neutrophils # (Auto) 8.0 H 1.8-7.8 10^3/uL Lymphocytes # (Auto) 1.6 1.0-4.0 10^3/uL Monocytes # (Auto) 0.7 0.0-1.0 10^3/uL Eosinophils # (Auto) 0.1 0.0-0.3 10^3/uL Basophils # (Auto) 0.0 0.0-0.1 10^3/uL Immature Granulocyte # (Auto) 0.1 0.0-0.1 10^3/uL OB - Assessment/Plan/Diagnosis Assessment Assessment: labor Admission Dx 30 yo @ 33.6 weeks Di di twin gestation labor Admission Status: Inpatient Order (span 2 midnights) Reason for Inpatient Admission: labor with twin gestation Plan Plan: Expectant Management Other Plan Started on GBS prophylaxis, expectant management. BMZ given at 30 weeks, due to another episode of PTL which she had been started on Procardia and is now debbie through as well. JOSUÉ CAMPOS DO Oct 03, 2020 22:52
--- NOTE | 2020-10-03 23:10 | OB Labor & Delivery Record ---
L&D History Date of Service Date of Service: Oct 03, 2020 History Expected Date of Delivery: Nov 15, 2020 Gestational Age in Weeks: 33 Hx : 4 Hx Para: 3 Complications Events: Labor <37 wks Operative Indications (Cesarea: N/A-Vaginal Delivery Intrapartal Events: None Other Complications Diamniotic dichorionic twin gestation L&D Stage1 Stage One Onset of Labor - Date: Oct 03, 2020 Monitors and Tracing Monitor Mode: External Heart Rate: 150 Monitor Accelerations: Uniform Monitor Decelerations: None Station: -1 Chcf Variability: Average (6-10) Short Term Variability: Present Presentation: Vertex Vital Signs VS - Last 72 Hours, by Label 10/03/20 16:42 Temp 36.9 Pulse 100 Resp 18 Pulse Ox 99 O2 Delivery Room Air Rupture of Membranes Spontaneous Ruture of Membrane: No Amniotic Membrane Rupture Time: 21:35 Vaginal Bleeding Description: Normal Show Progress/Notes Patient admitted in active PTL, she progressed to complete with membranes in tact, she was moved to the OR for delivery, where AROM was performed after receiving 2nd dose of GBS prophylaxis. L&D Stage2 Stage Two Stage II Date: Oct 03, 2020 Monitors and Tracing Monitor Mode: External Heart Rate: 150 Monitor Accelerations: Uniform Grocery Stocker Variability: Average (6-10) Short Term Variability: Present Position: Right Occiput Anterior Presentation: Vertex Cord Descript/Complications Cord Vessel Description: 3 Vessels Complications Fetus A was delivered over intact perineum without laceration. Cord was marked with one cord clamp. AROM of Fetus B performed shortly after, and with next contraction B was born similarly over intact perineum without laceration. Cord for B was marked with 2 cord clamps. Cord blood from each was collected and sent separately. Delivery Type Delivery Method: Spontaneous Vaginal Episiotomy/Perineal Laceration Laceraction(s)/Extensions: No Condition of Infant Delivery Notes BABY A, 5lbs 3 oz. 8/9, BABY B 5lbs 10 oz. 7/8. Both female infants Condition of Condition of Infant: Living Exam: No Observed Abnormalities Resuscitation Resuscitation: N/A - Spontaneous Resp L&D Stage3 Stage Three Stage III Date: Oct 03, 2020 Pictocin Pitocin Administration Comment: 30 mu wide open at delivery of placenta Placenta Delivery Placenta Delivery: Spontaneous Delivery Summary Summary Estimated blood loss (mL): 350 Attending at delivery: Josué Campos DO Condition of Delivery Examined: Cervix Examined, Uterus Explored Post Hemorrhage: No Condition of Mother stable Condition of Infant (s) stable, with [facility] [place] [facility] [place] attending to infants. JOSUÉ CAMPOS DO Oct 03, 2020 23:10
[2020-10-03] MEDS ORDERED: WITCH HAZEL(TUCKS) 40 EA JAR TOP PRN (23:15)
[2020-10-03] MEDS ORDERED: BENZOCAINE/MENTHOL (DERMOPLAST) 60 ML CAN TP PRN (23:15)
[2020-10-03] MEDS ORDERED: APAP W/CODEINE ELIXIR 12.5 ML (TYLENOL W/CODEINE) PO PRN (23:15)
[2020-10-03] MEDS ORDERED: MEASLES,MUMPS,RUBELLA 1 EA INJ SQ ONE (23:15)
[2020-10-03] MEDS ORDERED: DIBUCAINE (NUPERCAINAL) 1% OINT 30 GM TOP PRN (23:15)
[2020-10-03] MEDS ORDERED: TETANUS,DIPTH,PERTUSS P/F (BOOSTRIX) 0.5 ML VIAL IM ONE (23:15)
[2020-10-04] VITALS (7 sets, daily range): BP systolic 92–113; BP diastolic 53–64
[2020-10-04] MEDS: IBUPROFEN SUSP 100MG/5ML (MOTRIN) UDC PO PRN ×3 (00:28→11:25)
[2020-10-04 05:31] LABS: BASOPHILS % (AUTO) 0 % (0-10); EOSINOPHILS % (AUTO) 0 % (0-10); HEMATOCRIT 27 % (35-52); HEMOGLOBIN 8.5 g/dL (11.5-16.0); LYMPHOCYTES # (AUTO) 1.6 10^3/uL (1.0-4.0); LYMPHOCYTES % (AUTO) 11 % (12-44); MEAN CORPUSCULAR HEMOGLOBIN 25 pg (25-34); MEAN CORPUSCULAR HGB CONC 32 g/dL (32-36); MEAN CORPUSCULAR VOLUME 77 fL (80-99); MEAN PLATELET VOLUME 12.9 fL (9.0-12.2); MONOCYTES # (AUTO) 1.1 10^3/uL (0.0-1.0); MONOCYTES % (AUTO) 8 % (0-12); NEUTROPHILS # (AUTO) 12.2 10^3/uL (1.8-7.8); NEUTROPHILS % (AUTO) 81 % (42-75); PLATELET COUNT 199 10^3/uL (130-400)
[2020-10-04] MEDS ORDERED: CATHETER FLUSH 10 ML SYR IV SCH (06:00)
[2020-10-04] MEDS ORDERED: APAP 300 MG/CODEINE 30 MG (TYLENOL #3) TAB PO PRN (07:30)
--- NOTE | 2020-10-04 08:19 | NUR ---
Dr Carlson to see patient and review plan of care.
--- NOTE | 2020-10-04 08:33 | Postpartum Progress Note ---
Note Note Day #1 Subjective: Patient is without complaints. Ambulating, voiding. Tolerating a regular diet without nausea or vomiting. Normal lochia. Pain is well controlled with oral pain medications. Objective: Physical Exam: General - Alert and oriented, no apparent distress Abdomen - Soft, appropriately tender to palpation, non-distended, fundus firm at umbilicus Extremities - no edema, negative Lupis's bilaterally Assessment: PPD NVD x 2 for Twin gestation Acute blood loss anemia superimposed on anemia of Plan: Routine care. Encourage breast feeding. Encourage ambulation. Ferrous sulfate supplementation. Plan for discharge tomorrow Vitals - Labs Vital Signs - I&O Vital Signs Date Time Temp Pulse Resp B/P (MAP) Pulse Ox O2 Delivery O2 Flow Rate FiO2 10/04/20 07:55 37.1 83 18 92/53 (66) 97 Room Air 10/04/20 04:15 36.8 79 18 113/57 (75) 97 10/04/20 00:27 36.1 74 18 98/54 (69) 96 10/04/20 00:00 86 18 113/63 (80) Room Air 10/03/20 23:45 36.5 81 18 117/66 (83) Room Air 10/03/20 23:30 36.8 93 18 114/62 (79) Room Air 10/03/20 23:15 36.6 85 18 113/62 (79) Room Air 10/03/20 23:00 37.0 88 18 112/38 (62) Room Air 10/03/20 22:45 36.8 88 18 123/72 (89) Room Air 10/03/20 22:28 10/03/20 22:15 10/03/20 22:00 10/03/20 21:45 103 18 129/66 (87) 100 10/03/20 16:42 36.9 100 18 99 Room Air I & O 10/04/20 07:00 Intake Total 1060 ml Balance 1060 ml Labs Laboratory Tests 10/03/20 16:46: White Blood Count 10.4, Red Blood Count 4.25, Hemoglobin 10.3L, Hematocrit 33L, Mean Corpuscular Volume 77L, Mean Corpuscular Hemoglobin 24L, Mean Corpuscular Hemoglobin Concent 31L, Red Cell Distribution Width 15.6H, Platelet Count 203, Mean Platelet Volume 12.3H, Immature Granulocyte % (Auto) 1, Neutrophils (%) (Auto) 77H, Lymphocytes (%) (Auto) 15, Monocytes (%) (Auto) 6, Eosinophils (%) (Auto) 1, Basophils (%) (Auto) 0, Neutrophils # (Auto) 8.0H, Lymphocytes # (Auto) 1.6, Monocytes # (Auto) 0.7, Eosinophils # (Auto) 0.1, Basophils # (Auto) 0.0, Immature Granulocyte # (Auto) 0.1 10/03/20 17:10: 10/04/20 04:59: White Blood Count 15.0H, Red Blood Count 3.45L, Hemoglobin 8.5L, Hematocrit 27L, Mean Corpuscular Volume 77L, Mean Corpuscular Hemoglobin 25, Mean Corpuscular Hemoglobin Concent 32, Red Cell Distribution Width 15.6H, Platelet Count 199, Mean Platelet Volume 12.9H, Immature Granulocyte % (Auto) 1, Neutrophils (%) (Auto) 81H, Lymphocytes (%) (Auto) 11L, Monocytes (%) (Auto) 8, Eosinophils (%) (Auto) 0, Basophils (%) (Auto) 0, Neutrophils # (Auto) 12.2H, Lymphocytes # (Auto) 1.6, Monocytes # (Auto) 1.1H, Eosinophils # (Auto) 0.0, Basophils # (Auto) 0.0, Immature Granulocyte # (Auto) 0.1 JOSUÉ CAMPOS DO Oct 04, 2020 08:33
[2020-10-04] MEDS: DOCUSATE SODIUM 100 MG (COLACE) CAP PO SCH (10:19)
[2020-10-04] MEDS: PRENATAL VITAMIN 1 EA TAB PO SCH (10:19)
--- NOTE | 2020-10-04 15:09 | NUR ---
pt in nsy seeing infants. vital signs obtained.
--- NOTE | 2020-10-04 15:59 | NUR ---
pt declines flu vaccine
--- NOTE | 2020-10-04 16:45 | NUR ---
Report from ARDEN Palacios
--- NOTE | 2020-10-04 21:20 | NUR ---
Pt in y to see infants. Assessment completed. Pt reports minimal bleeding and denies blood clots. [facility] with no s/s of distress. Complaints of cramping and muscle tiredness, encouraged to drink water, verbalizes understanding. Pt denies any needs or concerns at this time
[2020-10-05] MEDS: IBUPROFEN SUSP 100MG/5ML (MOTRIN) UDC PO PRN ×4 (00:31→18:04)
[2020-10-05] MEDS: DOCUSATE SODIUM 100 MG (COLACE) CAP PO SCH ×2 (00:31→10:53)
[2020-10-05 02:50] VITALS: BP 100/55
--- NOTE | 2020-10-05 07:35 | Postpartum Progress Note ---
GRICEL MALAGON MED STUDENT 10/05/20 0735: Note Note Day # 2 Subjective: Patient states moderate cramping abdominal pain last night, significantly improved after motrin at 6am. Currently without complaints. Ambulating, voiding. Tolerating a regular diet without nausea or vomiting. States no vaginal discharge. Pain is well controlled with oral pain medications. Objective: Physical Exam: General - Alert and oriented, no apparent distress Abdomen - Soft, appropriately tender to palpation, non-distended, fundus firm 3 cm below umbilicus Extremities - no edema, negative Lupis's bilaterally Assessment: post- day # 2, status post vaginal delivery of twins. Recovering well, hemodynamically stable Plan: Routine care. Encourage breast feeding. Encourage ambulation. Plan for discharge today Gricel Malagon medical student Vitals - Labs Vital Signs - I&O Vital Signs Date Time Temp Pulse Resp B/P (MAP) Pulse Ox O2 Delivery O2 Flow Rate FiO2 10/05/20 02:50 36.8 73 16 100/55 (70) 96 Room Air 10/04/20 21:47 36.8 68 16 98/53 (68) 97 Room Air 10/04/20 15:10 36.6 96 14 104/64 (77) 96 Room Air 10/04/20 11:04 36.6 77 14 101/59 (73) 98 Room Air 10/04/20 07:55 37.1 83 18 92/53 (66) 97 Room Air HANK CAMPOS DO 10/05/20 0807: Note Note Verification and Attestation of Medical Student E/M Service A medical student performed and documented this service in my presence. I reviewed and verified all information documented by the medical student and made modifications to such information, when appropriate. I personally performed the physical exam and medical decision making. Hank Campos, Oct 05, 2020,08:07 GRICEL MALAGON MED STUDENT Oct 05, 2020 07:35 HANK CAMPOS DO Oct 05, 2020 08:07
--- NOTE | 2020-10-05 08:09 | Discharge Inst-Women's Service ---
Discharge Inst-Women's Serv Depart Medication/Instructions New, Converted or Re-Newed RX: RX on Chart Final Diagnosis PPD 2 NVD twins Problems Reviewed?: Yes Consults/Follow Up Additional Follow Up: Yes Orders/Referrals Dr. Campos in 6 weeks Activity Activity: Activity as Tolerated Driving Instructions: No Driving for 1 Week NO SMOKING: NO SMOKING Nothing Inside Vagina: No Douching, No Hermann, No Tampons Diet Discharge Diet: No Restrictions Symptoms to Report to : Bleeding Excessive, Pain Increased, Fever Over 101 Degrees F, Vaginal Bleeding Increase, Questions/Concerns For Any Problems or Questions: Contact Your Physician JOSUÉ CAMPOS DO Oct 05, 2020 08:09
[2020-10-05] MEDS ORDERED: IBP100U5 PO (08:10)
[2020-10-05] MEDS ORDERED: DCS100C PO (08:10)
[2020-10-05] MEDS ORDERED: BENZ78AE5 TP (08:10)
[2020-10-05] MEDS ORDERED: DIBU30OI TOP (08:10)
[2020-10-05 09:20] VITALS: BP 105/61
--- NOTE | 2020-10-05 09:20 | NUR ---
AM shift assessment completed and vital signs obtained, see interventions. Plan of care reviewed with patient. Patient verbalizes understanding and questions answered. Patient refused Colace and PNV at this time.
[2020-10-05] MEDS: PRENATAL VITAMIN 1 EA TAB PO SCH (10:53)
--- NOTE | 2020-10-05 13:05 | NUR ---
Report rec'd from Clara Wise RN
--- NOTE | 2020-10-05 14:00 | NUR ---
Pt in nsy sitting with infants. No questions or concerns voiced at this time. No s/s of distress noted.
--- NOTE | 2020-10-05 15:29 | NUR ---
Discharge instructions explained to pt with copy provided to pt along with prescriptions. Pt notified of options for scripts to be filled. She thinks her will be able to. Pt notified of follow up appt. Pt verbalizes understanding of instructions and signs to verify. No questions or concerns voiced at this time
--- NOTE | 2020-10-05 16:51 | NUR ---
Pt says is unable to pear picker scripts tonight. Requests delivery. Scripts called to [facility] pharmacy at this time.
--- NOTE | 2020-10-05 17:30 | NUR ---
Scripts rec'd from [facility] staff and delivered to pt. Pt denies needs or concerns at this time
== END 2020-10-05 18:58 | disposition home or self-care (01) | DRG 806 ==
LOC: LDRP 16:38 → WS 10-04
PROVIDERS: ADMIT Obstetrics & Gynecology; ATTEND Obstetrics & Gynecology
PROC: 10E0XZZ Delivery of Products of Conception, External Approach (ICD-10-PCS; principal; 2020-10-03)
DX: O60.14X0 Preterm labor third trimester with preterm delivery third trimester, not applicable or unspecified (principal); D62 Acute posthemorrhagic anemia; Z37.2 Twins, both liveborn; O30.043 Twin pregnancy, dichorionic/diamniotic, third trimester; O90.81 Anemia of the puerperium; O99.03 Anemia complicating the puerperium; D64.9 Anemia, unspecified; Z3A.33 33 weeks gestation of pregnancy; Z20.822 Contact with and (suspected) exposure to COVID-19; Z23 Encounter for immunization
CPT/HCPCS: 36415; 85025; 86850; 86900; 86901; 87635; 90715

== ENCOUNTER 2022-12-18 12:30 | Outpatient (CLI) | payer MEDICAID ==
[~2022-12-18] VITALS: Ht 154.9 cm; Wt 80.5 kg
[~2022-12-18 12:30] MED LIST changes: +BENZ78AE5 TP; +CYCL10TA25 PO; -CYCL10TA9 PO; +DIBU30OI TOP; +DOCU-239 PO; +IBP100U5 PO; +IBUP-2558 PO; -IBUP100O28 PO
== END 2022-12-18 14:18 | disposition home or self-care (01) ==
LOC: PREOP 12:30
PROVIDERS: ATTEND Obstetrics & Gynecology
DX: Z01.818 Encounter for other preprocedural examination (principal)

== ENCOUNTER 2022-12-19 06:06 | Day surgery (SDC) | payer MEDICAID ==
[2022-12-19] VITALS (10 sets, daily range): BP systolic 92–113; BP diastolic 50–68
[~2022-12-19] VITALS: Ht 154.9 cm; Wt 80.5 kg
[2022-12-19] MEDS ORDERED: proPOfol 200 MG/20 ML (DIPRIVAN) VIAL IV ONE (06:36)
[2022-12-19] MEDS ORDERED: fentaNYL INJ 100 MCG/2 ML AMP ONE (06:36)
[2022-12-19] MEDS ORDERED: ONDANSETRON 4 MG/2 ML (SDV) Z0FRAN ONE (06:36)
[2022-12-19] MEDS ORDERED: LIDOCAINE PF 2% 5 ML (XYLOCAINE) VIAL ONE (06:36)
[2022-12-19] MEDS ORDERED: MIDAZOLAM 2 MG/2 ML (VERSED) VIAL ONE (06:36)
[2022-12-19] MEDS: LACTATED RINGERS 1,000 ML IV PRN ×2 (06:50→08:00)
[2022-12-19 07:03] LABS: MONOCYTES # (AUTO) 0.5 10^3/uL (0.0-1.0)
[2022-12-19 07:05] LABS: BASOPHILS % (AUTO) 0 % (0-10); EOSINOPHILS # (AUTO) 0.1 10^3/uL (0.0-0.3); EOSINOPHILS % (AUTO) 2 % (0-10); HEMATOCRIT 39 % (35-52); HEMOGLOBIN 12.9 g/dL (11.5-16.0); LYMPHOCYTES # (AUTO) 1.7 10^3/uL (1.0-4.0); LYMPHOCYTES % (AUTO) 25 % (12-44); MEAN CORPUSCULAR HEMOGLOBIN 28 pg (25-34); MEAN CORPUSCULAR HGB CONC 33 g/dL (32-36); MEAN CORPUSCULAR VOLUME 85 fL (80-99); MEAN PLATELET VOLUME 13.2 fL (9.0-12.2); MONOCYTES % (AUTO) 7 % (0-12); NEUTROPHILS # (AUTO) 4.5 10^3/uL (1.8-7.8); NEUTROPHILS % (AUTO) 66 % (42-75); PLATELET COUNT 152 10^3/uL (130-400); WHITE BLOOD COUNT 6.9 10^3/uL (4.3-11.0)
--- NOTE | 2022-12-19 07:16 | History & Physical-Surgical ---
HPO-Surgical History of Present Illness Chief Complaint: Missed Ab Diagnosis/Surgical Indication: MISSED AB 12 WEEKS Procedure: SUCTION DILATATION AND CURETTAGE Date of Surgery: Dec 19, 2022 Weight (Pounds): 170 Weight (Ounces): 0 Height (Feet): 5 Height (Inches): 1.00 Allergies and Home Medications Allergies Coded Allergies: nitrofurantoin (Verified Allergy, Unknown, 12/19/22) throat swelling Patient Home Medication List Home Medication List Reviewed: Yes Pedi Mv No.79/Ferrous Fumarate (Flintstones with Iron Tab Chew) 18 Mg Tab.chew, 18 MG PO BID, (Reported) Entered as Reported by: TIGRE FUCHS on 09/07/20 1245 Last Action: Reviewed Discontinued Medications Benzocaine/Menthol (Dermoplast Pain Relieving [place]) 78 Gm Aerosol, 56 ML TP UD PRN for PAIN- SEE INSTRUCTIONS Discontinued Reason: No Longer Taking Prescribed by: JOSUÉ CAMPOS on 10/05/20 0810 Dibucaine (Dibucaine) 30 Gm Oint, 0 GM TOP UD PRN for PAIN- SEE INSTRUCTIONS Discontinued Reason: No Longer Taking Prescribed by: JOSUÉ CAMPOS on 10/05/20 0810 Docusate Sodium (Dok) 100 Mg Capsule, 100 MG PO BID PRN for CONSTIPATION-1ST LINE Discontinued Reason: No Longer Taking Prescribed by: JOSUÉ CAMPOS on 10/05/20 0810 Ibuprofen (Ibuprofen) 100 Mg/5 Ml Oral.susp, 600 MG PO Q6H PRN for PAIN-MILD (1- 4) Discontinued Reason: No Longer Taking Prescribed by: JOSUÉ CAMPOS on 10/05/20 0810 Nifedipine (Nifedipine) 10 Mg Capsule, 10 MG PO Q4HR Discontinued Reason: No Longer Taking Prescribed by: JOSUÉ CAMPOS on 09/08/20 0738 Past [id number] Hx Patient Social History 2nd Hand Smoke Exposure: No Recent Hopitalizations: No Immunizations Up To Date Tetanus Booster (TDap): Unknown Pediatric: No Seasonal Allergies Seasonal Allergies: No Surgeries Yes (wisdom teeth) Respiratory No Cardiovascular No Neurological No Reproductive System Hx Reproductive Disorders: No Sexually Transmitted Disease: No HIV/AIDS: No Female Reproductive Disorders: Denies Genitourinary No Gastrointestinal Yes Gall Bladder Disease Musculoskeletal No Endocrine History of Endocrine Disorders: No HEENT History of HEENT Disorders: No Loss of Vision: Denies Hearing Impairment: Denies Cancer No Psychosocial History of Psychiatric Problem: No Integumentary History of Skin or Integumenta: No Blood Transfusions History of Blood Disorders: No Adverse Reaction to a Blood Tr: No Family Medical History Significant Family History: No Pertinent Family Hx Family Hx: Patient reports no known family medical history. Exam Vital Signs Capillary Refill : Labs Laboratory Tests Test 12/19/22 06:30 Range/Units General Appearance: Alert, Oriented X3 HEENT: Atraumatic Respiratory: Clear to Auscultation Cardiovascular: Regular Rate Abdominal: Normal Bowel Sounds Extremities: No Clubbing Skin: No Rashes Neuro: Normal Gait Psych/Mental Status: Mental Status NL Assessment/Plan Assessment and Plan Diagnosis: Missed ab at 13 weeks P: Suction D and C Admission Diagnosis Admission Status: Other (Same Day Surgery) JOSUÉ CAMPOS DO Dec 19, 2022 07:16
--- NOTE | 2022-12-19 07:18 | Discharge Inst-Women's Service ---
Discharge Inst-Women's Serv Depart Medication/Instructions New, Converted or Re-Newed RX: Transmitted to Pharmacy Problems Reviewed?: Yes Consults/Follow Up Additional Follow Up: Yes Orders/Referrals Dr. Campos in 2 weeks Activity Activity: Activity as Tolerated Driving Instructions: You May Drive (no driving today) NO SMOKING: NO SMOKING Nothing Inside Vagina: No Douching, No Villanue[place], No Tampons Diet Discharge Diet: No Restrictions Symptoms to Report to : Bleeding Excessive, Pain Increased, Fever Over 101 Degrees F, Vaginal Bleeding Increase, Questions/Concerns For Any Problems or Questions: Contact Your Physician JOSUÉ CAMPOS DO Dec 19, 2022 07:18
[2022-12-19] MEDS ORDERED: KETOROLAC 30 MG/ML VIAL ONE (07:20)
[2022-12-19] MEDS ORDERED: ONDANSETRON 4 MG/2 ML (SDV) Z0FRAN IVP PRN ×2 (07:30→08:30)
[2022-12-19] MEDS ORDERED: D5 LR IV SOLUTION 1,000 ML IV SCH (07:30)
[2022-12-19] MEDS ORDERED: KETOROLAC 30 MG/ML VIAL IVP ONE (07:30)
[2022-12-19] MEDS ORDERED: SEVOFLURANE (ULTANE) 15 ML INHAL SOLN ONE (08:08)
[2022-12-19] MEDS ORDERED: HYDROmorphone 2 MG/ML VIAL (DILAUDID) IV ONE (08:30)
[2022-12-19] MEDS ORDERED: PROMETHAZINE INJ 25 MG/ML (PHENERGAN) AMP IVP ONE (08:30)
[2022-12-19] MEDS ORDERED: morphine INJ 10 MG/ML 1ML (SYR OR VIAL) IVP ONE (08:30)
--- NOTE | 2022-12-19 10:43 | Anesthesia-General Post-Op ---
General Patient Condition Mental Status/LOC: Same as Preop Cardiovascular: Satisfactory Nausea/Vomiting: Absent Respiratory: Satisfactory Pain: Controlled Complications: Absent Post Op Complications Complications None Follow Up Care/Instructions Patient Instructions None needed. Anesthesia/Patient Condition Patient Condition Patient is doing well, no complaints, stable vital signs, no apparent adverse anesthesia problems. No complications reported per nursing. MASON FIELDS CRNA Dec 19, 2022 10:43
--- NOTE | 2022-12-19 14:34 | OPERATIVE REPORT ---
PREOPERATIVE DIAGNOSIS: A 32-year-old female with missed . POSTOPERATIVE DIAGNOSIS: A 32-year-old female with missed . PROCEDURE: Suction D and C. SURGEON: Hank Carlson DO ANESTHESIA: LMA general. ESTIMATED BLOOD LOSS: 800 mL URINE OUTPUT: 50 clear at the end of the procedure. FLUIDS: 1200 mL lactated Ringer's solution. FINDINGS: Grossly normal-appearing external female genitalia. Copious amount of products of conception consistent with a 12-13 week size miscarriage. Products of conception. SPECIMEN SENT: Products of conception. INDICATIONS FOR PROCEDURE: This 32-year-old female is the patient who had sought care in my office. Her 17-week appointment was yesterday. Upon evaluation, there was found to be no heart activity as well as a fetus measuring only 12 to 13 weeks. Due to missed , the patient wished to proceed with removal of the . I discussed with the patient suction D and C in detail. Risk of the procedure including bleeding was discussed with the patient in detail. After all of her questions were answered, consent was obtained, the patient was taken to the operating room. OPERATIVE DESCRIPTION IN DETAIL: Once in the operating room, anesthesia was found to be adequate, she was placed in dorsal lithotomy position, prepped and draped in normal sterile fashion. A timeout was performed. A weighted speculum inserted to the patient's vagina. Right angle retractor was used to visualize the cervix, was grasped at 12 o'clock position using a single tooth tenaculum. I then gently sound uterine cavity, depth was found to be 12 cm. I then gently dilated the cervix using Hanks dilators to maximum dilatation approximately 1.2 cm, at which point I advanced a #12 suction rigid [place] curette into the uterus. I applied [place] suction and with multiple passes of [place] suction, at a suction of 70 mmHg or greater, I cleared the endometrial cavity of all products of conception. This has to be done on several different attempts and passes. I also had to tease some of the tissue out through the cervical opening using ring forceps. Once the entire was felt to be removed, I performed a gentle curettage of the endometrium until a gentle uterine cry is appreciated. There is no evidence of retained products of conception at that point. One final pass with the suction [place] curette is made after which there is little to no bleeding noted from the external cervical os. There was a tear in the anterior cervix. It was repaired using 3-0 Vicryl suture in a [id number] fashion, after which there was no active bleeding noted from any of dissection planes or the cervix itself. I then removed all instruments from the patient's vagina. The patient tolerated the procedure well and sent to recovery area in stable condition. Lap and sponge count was correct at the end of the procedure, instrument counts correct as well. Job ID: [id number] DocumentID: [id number] Dictated Date: 12/19/2022 08:40:55 Production Painter Date: 12/19/2022 14:31:00 Dictated By: DO NEVIN ANGULO
== END 2022-12-19 10:00 | disposition home or self-care (01) ==
LOC: SDC 06:06
PROVIDERS: ATTEND Obstetrics & Gynecology
DX: O02.1 Missed abortion (principal); E66.9 Obesity, unspecified; Z28.310 Unvaccinated for COVID-19
CPT/HCPCS: 36415; 85025; 86850; 86900; 86901; 87081